=== PATIENT | female | born 1955 | race American Indian/Alaskan Native ===

== ENCOUNTER 2017-01-16 21:55 | Emergency (ER) | payer MEDICARE, OTHER ==
[2017-01-16 21:55] VITALS: BMI 27.4
[2017-01-16 22:11] VITALS: BP 143/82; PULSE 88; TEMP 98.1; O2SAT 98
[2017-01-16 22:39] LABS: RBC URINE 1 /hpf (0-3); URINE BACTERIA FEW (<OCC); URINE BILIRUBIN NEGATIVE (NEGATIVE); URINE BLOOD NEGATIVE (NEGATIVE); URINE COLOR Yellow (YELLOW); URINE GLUCOSE (UA) NORMAL (Normal); URINE KETONE NEGATIVE (NEGATIVE); URINE LEUKOCYTE ESTERASE 2+ Leu/uL (Negative); URINE PROTEIN NEGATIVE (NEGATIVE); URINE UROBILINOGEN NORMAL mg/dL (0.2-1.0); WBC URINE 26 /hpf (0-5)
--- NOTE | 2017-01-16 23:27 | C.PDOC ---
History Of Present Illness 61 y/o female, with history of chronic back pain, complaining of dysuria for the last 4 days associated with frequency, urgency, and feeling that she cannot hold her urine. Patient also complains of back pain, without numbness or weakness. Denies fever. She also complains of loose stool, denies abdominal pain , nausea, vomiting. There are no other complaints at this time. Time Seen by Provider: 01/16/17 22:46 Chief Complaint (Nursing): Female Genitourinary History Per: Patient History/Exam Limitations: no limitations Onset/Duration Of Symptoms: Days Current Symptoms Are (Timing): Still Present Severity: Moderate Quality Of Discomfort: "Pain" Associated Symptoms: Diarrhea, Back Pain, Urinary Symptoms. denies: Fever, Chills, Nausea, Vomiting, Loss Of Appetite, Chest Pain, Constipation Alleviating Factors: None Recent travel outside of the [place]: No Additional History Per: Patient Past Medical History Vital Signs: Last Vital Signs Temp 98.1 F 01/16/17 22:06 Pulse 88 01/16/17 22:06 Resp 20 01/16/17 23:34 BP 143/82 01/16/17 22:06 Pulse Ox 98 01/16/17 23:27 - Medical History PMH: Anxiety, Arthritis, Asthma, Back Problems, COPD, Dementia, Depression, Diabetes, Gastritis, GERD, Hepatitis, HTN, Hypercholesterolemia, Schizophrenia, Seizures, Chronic Pain (neck and back) Denies: Anemia, Chronic Kidney Disease Comment Only: HIV (unable to assess) Surgical History: Back Surgery, Cholecystectomy Denies: Pacemaker - [facility] Procedures COLONOSCOPY (04/22/12) ESOPHAGOGASTRODUODENOSCOPY [EGD] W/CLOSED BIOPSY (02/04/15) GROUP PSYCHOTHERAPY (11/08/16) INDIVIDUAL PSYCHOTHERAPY, COGNITIVE-BEHAVIORAL (11/08/16) INSERT INFUSION DEV IN R INT JUGULAR VEIN, PERC (11/11/16) INSERTION OF ENDOTRACHEAL AIRWAY INTO TRACHEA, VIA OPENING (11/11/16) RESPIRATORY VENTILATION, 24-96 CONSECUTIVE HOURS (11/11/16) Family History: States: Unknown Family Hx - Social History Hx Tobacco Use: Yes Hx Alcohol Use: No Hx Substance Use: Yes - Immunization History Hx Tetanus Toxoid Vaccination: No Hx Influenza Vaccination: Yes Hx Pneumococcal Vaccination: Yes Review Of Systems Except As Marked, All Systems Reviewed And Found Negative. Constitutional: Negative for: Fever Gastrointestinal: Positive for: Diarrhea Genitourinary: Positive for: Dysuria, Frequency Musculoskeletal: Positive for: Back Pain Physical Exam - Physical Exam Appears: Well, No Acute Distress Skin: Normal Color, Warm, Dry Eye(s): bilateral: Normal Inspection, PERRL, EOMI Nose: Normal Throat: Normal Neck: Normal Cardiovascular: Rhythm Regular Respiratory: Normal Breath Sounds Gastrointestinal/Abdominal: Normal Exam Rectal: Normal Exam, Rectal Tone (normal), No Heme Positive, Heme Negative Back: Normal Inspection Extremity: Normal ROM Extremity: Bilateral: Atraumatic Neurological/Psych: Oriented x3, Normal Speech, Normal Cognition, Normal Motor, Normal Sensation Gait: Steady ED Course And Treatment O2 Sat by Pulse Oximetry: 98 (RA) Pulse Ox Interpretation: Normal Progress Note: UA obtained and is positive. C&S ordered. Patient given Cipro in the department as well as a supply for home. Follow with PMD, or return with new /worsening complaints. Disposition - Disposition Disposition: HOME/ ROUTINE Disposition Time: 23:25 Condition: STABLE Additional Instructions: Take meds as directed Follow up with PMD Return to ER if worse Prescriptions: Ciprofloxacin [Cipro] 500 mg PO BID #14 tab Phenazopyridine HCl [Pyridium] 100 mg PO TID #6 tab Instructions: Urinary Tract Infection in Women (ED) - Clinical Impression Clinical Impression: UTI (urinary tract infection) - Scribe Statement The provider has reviewed the documentation as recorded by the Scribe Kavita Molina
[2017-01-16 23:34] VITALS: RESP 20
[2017-01-17] MEDS ORDERED: Morphine 4 MG/ML VIAL IV ONE (02:37)
== END 2017-01-16 23:34 | disposition home or self-care (01) ==
LOC: C.ER 21:55
DX: N39.0 Urinary tract infection, site not specified (principal); B96.89 Other specified bacterial agents as the cause of diseases classified elsewhere

== ENCOUNTER 2017-04-29 11:22 | Emergency (ER) | payer OTHER ==
[2017-04-29 11:23] VITALS: BMI 27.4
[2017-04-29 11:31] VITALS: O2SAT 99
--- NOTE | 2017-04-29 12:45 | C.PDOC ---
History Of Present Illness 61 yr old female with a history of chronic back pain and previous UTI, presents to the ER with complaints of lower abdominal pressure like pain for the past 5 days, radiating to the back. Patient also reports of urinary frequency and cloudy urine. Patient states the current back pain feels different then her usual. Patient reports of epigastric pain, burning in sensation and sometimes foul taste in the mouth. Patient states she forgot to take her omeprazole for the past few days. Patient denies fever, chills, chest pain, SOB, nausea, vomiting, weakness or numbness. Time Seen by Provider: 04/29/17 12:26 Chief Complaint (Nursing): Abdominal Pain History Per: Patient History/Exam Limitations: no limitations Onset/Duration Of Symptoms: Days (5) Current Symptoms Are (Timing): Still Present Location Of Pain/Discomfort: Epigastric, Suprapubic Radiation Of Pain To:: Back Quality Of Discomfort: Pressure, "Pain" Associated Symptoms: Urinary Symptoms Past Medical History Reviewed: Historical Data, Nursing Documentation, Vital Signs Vital Signs: Last Vital Signs Temp 97.8 F 04/29/17 14:19 Pulse 60 04/29/17 14:19 Resp 18 04/29/17 14:19 BP 154/88 H 04/29/17 14:19 Pulse Ox 99 04/29/17 14:19 - Medical History PMH: Anxiety, Arthritis, Asthma, Back Problems, COPD, Dementia, Depression, Diabetes, Gastritis, GERD, Hepatitis, HTN, Hypercholesterolemia, Schizophrenia, Seizures, Chronic Pain (neck and back) Comment Only: HIV (unable to assess) Surgical History: Back Surgery, Cholecystectomy - [facility] Procedures COLONOSCOPY (04/22/12) ESOPHAGOGASTRODUODENOSCOPY [EGD] W/CLOSED BIOPSY (02/04/15) GROUP PSYCHOTHERAPY (11/08/16) INDIVIDUAL PSYCHOTHERAPY, COGNITIVE-BEHAVIORAL (11/08/16) INSERT INFUSION DEV IN R INT JUGULAR VEIN, PERC (11/11/16) INSERTION OF ENDOTRACHEAL AIRWAY INTO TRACHEA, VIA OPENING (11/11/16) RESPIRATORY VENTILATION, 24-96 CONSECUTIVE HOURS (11/11/16) Family History: States: No Known Family Hx - Social History Hx Tobacco Use: Yes Hx Alcohol Use: No Hx Substance Use: Yes - Immunization History Hx Tetanus Toxoid Vaccination: No Hx Influenza Vaccination: Yes Hx Pneumococcal Vaccination: Yes Review Of Systems Except As Marked, All Systems Reviewed And Found Negative. Constitutional: Negative for: Fever, Chills Cardiovascular: Negative for: Chest Pain Respiratory: Negative for: Shortness of Breath Gastrointestinal: Positive for: Abdominal Pain (Lower abdominal, pressure like ) . Negative for: Nausea Genitourinary: Positive for: Frequency (Urinary ), Other ((+) Cloudy urine.). Negative for: Dysuria Musculoskeletal: Positive for: Back Pain (Radiating pain to the back ) Neurological: Negative for: Weakness, Numbness Physical Exam - Physical Exam Appears: Non-toxic, No Acute Distress Skin: Warm, Dry, No Rash Head: Atraumatic, Normacephalic Eye(s): bilateral: Normal Inspection Oral Mucosa: Moist Chest: Symmetrical, No Tenderness Cardiovascular: Rhythm Regular, No Murmur Respiratory: Normal Breath Sounds, No Rales, No Stridor, No Wheezing Gastrointestinal/Abdominal: Soft, Tenderness (Mild suprapubic ), No Guarding, No Rebound Back: Normal Inspection, No CVA Tenderness Extremity: Normal ROM, No Tenderness, No Deformity, No Swelling Neurological/Psych: Oriented x3, Normal Speech, Normal Motor, Normal Sensation Gait: Steady (with cane) ED Course And Treatment O2 Sat by Pulse Oximetry: 99 (RA) Pulse Ox Interpretation: Normal Medical Decision Making Medical Decision Making: Impression: low abd pain assoc urinary sx and back pain Prior records reviewed: patient last seen at [facility] 02/12/17 for chronic back pain and leg edema, neg doppler Plan: * Urinalysis * Tylenol PO Progress: UA shows nitrates and WBCs. Will treat for UTI. rx sent to pharmacy. Patient remained afebrile and in no acute distress. Patient feels comfortable going home and will be discharged. Patient given follow up instructions. Instructed to return to ER if symptoms worsen or new symptoms arise. Disposition - Disposition Referrals: Luis Manuel George MD [Non-Staff] - Disposition: HOME/ ROUTINE Disposition Time: 14:17 Condition: GOOD Additional Instructions: Your urine analysis shows infection. Your prescription for antibiotic was sent to [facility] Take Cipro twice daily for 5 days and be sure to finish taking all of antibiotic. Drink plenty of fluids. If urine culture was performed, call back for results in 2-3 days for results to confirm antibiotic is treating UTI well. Prescriptions: Ciprofloxacin [Cipro] 1 tab PO BID #10 tab Phenazopyridine [Pyridium] 100 mg PO Q8 #9 tab Instructions: Urinary Tract Infection in Women (DC) Forms: [facility] (French) - POA Present On Arrival: None - Clinical Impression Clinical Impression: UTI (urinary tract infection) - PA / MEDICAL RECORDS TECHNICIAN / Resident Statement MD/DO has reviewed & agrees with the documentation as recorded. - Scribe Statement The provider has reviewed the documentation as recorded by the Scribe Kalpana Moore All medical record entries made by the Gisellibmaria del carmen were at my direction and personally dictated by me. I have reviewed the chart and agree that the record accurately reflects my personal performance of the history, physical exam, medical decision making, and the department course for this patient. I have also personally directed, reviewed, and agree with the discharge instructions and disposition.
[2017-04-29 13:26] LABS: RBC URINE 1 /hpf (0-3); URINE BACTERIA OCC (<OCC); URINE BILIRUBIN NEGATIVE (NEGATIVE); URINE BLOOD NEGATIVE (NEGATIVE); URINE COLOR Yellow (YELLOW); URINE GLUCOSE (UA) NORMAL (Normal); URINE KETONE NEGATIVE (NEGATIVE); URINE LEUKOCYTE ESTERASE 1+ Leu/uL (Negative); URINE PROTEIN NEGATIVE (NEGATIVE); URINE UROBILINOGEN NORMAL mg/dL (0.2-1.0); WBC URINE 11 /hpf (0-5)
[2017-04-29 14:20] VITALS: BP 154/88; PULSE 60; RESP 18; TEMP 97.8
== END 2017-04-29 14:20 | disposition home or self-care (01) ==
LOC: C.ER 11:22
DX: N39.0 Urinary tract infection, site not specified (principal); B96.20 Unspecified Escherichia coli [E. coli] as the cause of diseases classified elsewhere

== ENCOUNTER 2017-06-14 16:30 | Emergency (ER) | payer OTHER ==
[2017-06-14 16:30] VITALS: BMI 27.4
[2017-06-14] MEDS ORDERED: Sodium Chloride 0.9% 1,000 ML IV ONE (16:59)
[2017-06-14] MEDS ORDERED: Sodium Chloride 0.9% 1,000 ML ONE (17:21)
--- NOTE | 2017-06-14 17:31 | C.PDOC ---
History Of Present Illness <LewisPedroMayo Carlton - Last Filed: 06/14/17 19:09> <Darshan Delgado - Last Filed: 06/14/17 21:23> 61 y/o female presents to emergency department with complaints of right flank pain radiating to right abdomen for 2 days with associated nausea and dysuria. Patient denies fever, chills, diarrhea, back pain or any other complaints at this time. (Gael Saucedo) History Per: Patient History/Exam Limitations: no limitations Onset/Duration Of Symptoms: Days Current Symptoms Are (Timing): Still Present Quality Of Discomfort: "Pain" <Pedro Saucedopson Carlton - Last Filed: 06/14/17 19:09> <Darshan Delgado - Last Filed: 06/14/17 21:23> Time Seen by Provider: 06/14/17 16:55 Chief Complaint (Nursing): Back Pain Past Medical History Reviewed: Historical Data, Nursing Documentation, Vital Signs - Medical History PMH: Anxiety, Arthritis, Asthma, Back Problems, COPD, Dementia, Depression, Diabetes, Gastritis, GERD, Hepatitis, HTN, Hypercholesterolemia, Schizophrenia, Seizures, Chronic Pain (neck and back) Comment Only: HIV (unable to assess) Surgical History: Back Surgery, Cholecystectomy Denies: Pacemaker Family History: States: No Known Family Hx - Social History Hx Tobacco Use: Yes Hx Alcohol Use: No Hx Substance Use: No - Immunization History Hx Tetanus Toxoid Vaccination: No Hx Influenza Vaccination: No Hx Pneumococcal Vaccination: Yes <LewisGael Carlton - Last Filed: 06/14/17 19:09> Vital Signs: Last Vital Signs Temp 99 F 06/14/17 16:38 Pulse 78 06/14/17 16:38 Resp 15 06/14/17 16:38 BP 139/95 H 06/14/17 16:38 Pulse Ox 99 06/14/17 19:09 - [facility] Procedures COLONOSCOPY (04/22/12) ESOPHAGOGASTRODUODENOSCOPY [EGD] W/CLOSED BIOPSY (02/04/15) GROUP PSYCHOTHERAPY (11/08/16) INDIVIDUAL PSYCHOTHERAPY, COGNITIVE-BEHAVIORAL (11/08/16) INSERT INFUSION DEV IN R INT JUGULAR VEIN, PERC (11/11/16) INSERTION OF ENDOTRACHEAL AIRWAY INTO TRACHEA, VIA OPENING (11/11/16) RESPIRATORY VENTILATION, 24-96 CONSECUTIVE HOURS (11/11/16) Review Of Systems Except As Marked, All Systems Reviewed And Found Negative. Gastrointestinal: Positive for: Abdominal Pain, Other (Flank Pain) Genitourinary: Positive for: Dysuria <Gael Saucedo - Last Filed: 06/14/17 19:09> Physical Exam - Physical Exam Appears: Non-toxic, No Acute Distress Skin: Normal Color, Warm, Dry, No Rash Head: Atraumatic, Normacephalic Oral Mucosa: Moist Neck: Normal ROM, Supple Chest: Symmetrical Cardiovascular: Rhythm Regular Respiratory: Normal Breath Sounds, No Rales, No Rhonchi, No Wheezing Gastrointestinal/Abdominal: Soft, Tenderness (RLQ), No Guarding, No Rebound Back: CVA Tenderness (Right) Extremity: Capillary Refill (<2 seconds), No Deformity, Other (Bandage to right foot, Patient states it was placed by physician and does not want it to be touched) Neurological/Psych: Oriented x3, Normal Motor, Normal Sensation <Gael Saucedo - Last Filed: 06/14/17 19:09> ED Course And Treatment O2 Sat by Pulse Oximetry: 99 (RA) Pulse Ox Interpretation: Normal <Gael Saucedo - Last Filed: 06/14/17 19:09> Medical Decision Making <Gael Saucedo - Last Filed: 06/14/17 19:09> <Darshan Delgado - Last Filed: 06/14/17 21:23> Medical Decision Making: Plan: CT scan abd/pelvic, Blood work, UA, Toradol, Zofran, Ppecid, IV fluids Assessment: Abdominal pain/ Flank pain (Gael Saucedo) Signed out to me at change of shift pending CBC and UA. Patient in ED in no acute distress. CBC returned WNL, no leukocytosis. UA shows 1+blood, negative nitrate, trace leuk jeff, occ bacteria, and 3 WBC. Patient does report dysuria and states feels like previous UTI which have responded well to Cipro. CT shows no acute pathology but does show significant stool without impaction or obstruction. Stool does seem concentrated in R sided abdomen. Patient notes she has not had BM for 4 days. I counseled the patient on diet and will prescribe antibiotic for UTI and colace/miralax. (Darshan Delgado) Disposition <Gael Saucedo - Last Filed: 06/14/17 19:09> - Disposition Disposition Time: 21:22 <Darshan Delgado - Last Filed: 06/14/17 21:23> - Disposition Disposition: HOME/ ROUTINE Condition: STABLE Prescriptions: Ciprofloxacin [Cipro] 500 mg PO BID #10 tab Docusate [Colace] 100 mg PO BID #30 cap Polyethylene Glycol 3350 [Miralax] 17 gm PO DAILY #238 gm Instructions: Constipation (ED), Urinary Tract Infection in Women (ED) Forms: [employer] (Faroese) - Clinical Impression Clinical Impression: UTI (urinary tract infection), Constipation - Scribe Statement The provider has reviewed the documentation as recorded by the Scribe <Gael Saucedo - Last Filed: 06/14/17 19:09> <Darshan Delgado - Last Filed: 06/14/17 21:23> - Scribe Statement Donato Gooden All medical record entries made by the Scribe were at my direction and personally dictated by me. I have reviewed the chart and agree that the record accurately reflects my personal performance of the history, physical exam, medical decision making, and the department course for this patient. I have also personally directed, reviewed, and agree with the discharge instructions and disposition. (Gael Saucedo) Physician Patient Turnover Patient Signed Over To: Darshan Delgado Handoff Comments: pending labs, reevaluation and disposition <Gael Saucedo - Last Filed: 06/14/17 19:09>
[2017-06-14 17:47] LABS: URINE BACTERIA OCC (<OCC); URINE BILIRUBIN NEGATIVE (NEGATIVE); URINE BLOOD 1+ (NEGATIVE); URINE COLOR Yellow (YELLOW); URINE GLUCOSE (UA) NORMAL (Normal); URINE KETONE NEGATIVE (NEGATIVE); URINE LEUKOCYTE ESTERASE TRACE Leu/uL (Negative); URINE PROTEIN NEGATIVE (NEGATIVE); URINE UROBILINOGEN NORMAL mg/dL (0.2-1.0); WBC URINE 3 /hpf (0-5)
[2017-06-14 17:48] LABS: RBC URINE 2 /hpf (0-3)
[2017-06-14 18:08] LABS: CHLORIDE 96 mmol/L (98-107)
[2017-06-14 18:09] LABS: POTASSIUM 3.2 mmol/L (3.6-5.2); SODIUM 135 mmol/L (132-148)
[2017-06-14 18:11] LABS: ALKALINE PHOSPHATASE 80 U/L (38-126); ALT/SGPT 80 U/L (9-52); AST/SGOT 103 U/L (14-36); BILIRUBIN,TOTAL 0.8 mg/dL (0.2-1.3); BLOOD UREA NITROGEN 11 mg/dL (7-17); CARBON DIOXIDE 28 mmol/L (22-30); GFR AFRICAN-AMERICAN > 60; GLUCOSE,RANDOM 88 mg/dL (65-105); TOTAL PROTEIN 7.7 g/dL (6.3-8.3)
[2017-06-14 18:12] LABS: CALCIUM 9.3 mg/dl (8.6-10.4)
[2017-06-14 18:15] LABS: HEMATOCRIT 36.6 % (34.0-47.0); MEAN CORPUSCULAR HEMOGLOBIN 28.1 pg (27.0-31.0); MEAN CORPUSCULAR HGB CONC 33.5 g/dL (33.0-37.0); MEAN PLATELET VOLUME 9.7 fL (7.2-11.7)
[2017-06-14 18:47] LABS: BASO % 1.6 % (0.0-2.0); EOS % 3.1 % (0.0-4.0)
[2017-06-14 18:48] LABS: BASO # 0.1 K/uL (0.0-0.2); EOS # 0.3 K/uL (0.0-0.7); LYMPH # 5.2 K/uL (1.0-4.3); MONO # 0.5 K/uL (0.0-0.8); NRBC % 0.1 % (0.0-2.0)
--- NOTE | 2017-06-14 20:03 | CT ---
PROCEDURE: CT Abdomen and Pelvis without intravenous contrast HISTORY: Abdominal and back pain COMPARISON: 02/11/2016 CT abdomen and pelvis TECHNIQUE: No Unenhanced study. Neither oral nor intravenous contrast administered. Radiation dose: Total exam DLP = 534.52 mGy-cm. This CT exam was performed using one or more of the following dose reduction techniques: Automated exposure control, adjustment of the mA and/or kV according to patient size, and/or use of iterative reconstruction technique. FINDINGS: LOWER THORAX: Unremarkable. LIVER: Hepatic steatosis. No focal masses. No intrahepatic bile duct dilatation or perihepatic ascites. GALLBLADDER AND BILE DUCTS: Status post cholecystectomy. No abnormality is seen in the gallbladder fossa. PANCREAS: Unremarkable. No gross lesion or ductal dilatation. SPLEEN: Diminutive spleen or splenule without focal abnormality ADRENALS: Unremarkable. No mass. KIDNEYS AND URETERS: Unremarkable. No hydronephrosis. No solid mass. VASCULATURE: Unremarkable. No aortic aneurysm. BOWEL: Constipation without fecal impaction or obstruction. APPENDIX: Unremarkable. Normal appendix. PERITONEUM: Unremarkable. No free fluid. No free air. LYMPH NODES: Unremarkable. No enlarged lymph nodes. BLADDER: Unremarkable. REPRODUCTIVE: Prior hysterectomy BONES: No acute fracture. OTHER FINDINGS: None. IMPRESSION: No significant or acute findings to account for/ related to the clinical presentation. Additional benign and/or incidental findings described above. No significant interval change compared to the prior examination(s).
[2017-06-14 21:31] VITALS: BP 120/90; PULSE 84; RESP 14; TEMP 98.5; O2SAT 98
== END 2017-06-14 21:31 | disposition home or self-care (01) ==
LOC: C.ER 16:30
DX: N39.0 Urinary tract infection, site not specified (principal); K59.00 Constipation, unspecified
CPT/HCPCS: 74176; 80053; 81001; 83690; 85025; 87086; 87181; 96374; 96375; 99285; J1885; J2405; J7040

== ENCOUNTER 2017-08-19 02:21 | Emergency (ER) | payer MEDICARE, OTHER ==
[2017-08-19 02:21] VITALS: BMI 27.4
[2017-08-19] MEDS ORDERED: DiphenhydrAMINE 12.5 mg/5 ml LIQ UD (5 ml) PO STA (02:55)
[2017-08-19] MEDS ORDERED: DiphenhydrAMINE 12.5 mg/5 ml LIQ UD (5 ml) ONE (02:59)
--- NOTE | 2017-08-19 03:15 | C.PDOC ---
History Of Present Illness 62 year old female presents to the ER with a complaint of nasal congestion for the past few days, associated with a recurring nose bleed to the right nare. Patient states the bleeding resolved but reports she feels pressure to her right facial area and is unable to breathe through the right nostril. Denies cough, sore throat, or fever. Time Seen by Provider: 08/19/17 02:43 Chief Complaint (Nursing): ENT Problem History Per: Patient History/Exam Limitations: None Onset/Duration Of Symptoms: Days Current Symptoms Are (Timing): Still Present Quality (Mouth/Throat): denies: Tenderness Anticoagulant/Antiplatlet Use?: No Past Medical History Reviewed: Historical Data, Nursing Documentation, Vital Signs Vital Signs: Last Vital Signs Temp 98.1 F 08/19/17 02:35 Pulse 75 08/19/17 04:49 Resp 18 08/19/17 04:49 BP 152/92 H 08/19/17 04:49 Pulse Ox 96 08/19/17 05:44 - Medical History PMH: Anxiety, Arthritis, Asthma, Back Problems, COPD, Dementia, Depression, Diabetes, Gastritis, GERD, Hepatitis, HTN, Hypercholesterolemia, Schizophrenia, Seizures, Chronic Pain (neck and back) Comment Only: HIV (unable to assess) Surgical History: Back Surgery, Cholecystectomy - [facility] Procedures COLONOSCOPY (04/22/12) ESOPHAGOGASTRODUODENOSCOPY [EGD] W/CLOSED BIOPSY (02/04/15) GROUP PSYCHOTHERAPY (11/08/16) INDIVIDUAL PSYCHOTHERAPY, COGNITIVE-BEHAVIORAL (11/08/16) INSERT INFUSION DEV IN R INT JUGULAR VEIN, PERC (11/11/16) INSERTION OF ENDOTRACHEAL AIRWAY INTO TRACHEA, VIA OPENING (11/11/16) RESPIRATORY VENTILATION, 24-96 CONSECUTIVE HOURS (11/11/16) Family History: States: Unknown Family Hx - Social History Hx Tobacco Use: Yes Hx Alcohol Use: No Hx Substance Use: No - Immunization History Hx Tetanus Toxoid Vaccination: No Hx Influenza Vaccination: No Hx Pneumococcal Vaccination: Yes Review Of Systems Constitutional: Negative for: Fever, Chills ENT: Positive for: Nose Congestion. Negative for: Throat Pain Respiratory: Negative for: Cough Musculoskeletal: Positive for: Other (Facial pressure) Physical Exam - Physical Exam Appears: Non-toxic, No Acute Distress Skin: Normal Color, Warm, Dry Head: Atraumatic, Normacephalic, Tenderness (Minimal frontal sinus), No Swelling (Facial) Eye(s): bilateral: Normal Inspection Ear(s): Bilateral: Normal Nose: Normal, No Septal Hematoma, Other (Moderate nasal congestion. Dried blood to the right nostril.) Oral Mucosa: Moist Throat: Normal, No Erythema Neck: Normal, Supple Chest: Symmetrical, No Tenderness Cardiovascular: Rhythm Regular Respiratory: Normal Breath Sounds, No Rales, No Rhonchi, No Wheezing Neurological/Psych: Oriented x3, Normal Speech ED Course And Treatment O2 Sat by Pulse Oximetry: 96 (Room air) Pulse Ox Interpretation: Normal Progress Note: Benadryl PO given and saline drops applied to nose. On reevaluation, patient is resting comfortably in bed with no recurrent epistaxis while in the ER, she reports improvement of symptoms. Patient requests to rest a while longer before going home. Reevaluation Time: 06:17 Reassessment Condition: Improved (Pt appears well, VSs, in NAD. Pt reports breathing better from nasal cavity and will follow up with PMD. Pt will take her BP meds at home) Disposition Counseled Patient/Family Regarding: Diagnosis - Disposition Disposition: HOME/ ROUTINE Disposition Time: 03:14 Condition: STABLE Additional Instructions: Use afrin nasal spray Take meds directed Use a humidifier at home or reduce heat if possible Return to ER if worse Forms: [facility] (Portuguese) - Clinical Impression Clinical Impression: Epistaxis, Allergic rhinitis - PA / LEAD ATHLETE / Resident Statement MD/DO has reviewed & agrees with the documentation as recorded. - Scribe Statement The provider has reviewed the documentation as recorded by the Scribmaria del carmen Munoz All medical record entries made by the Gisellibmaria del carmen were at my direction and personally dictated by me. I have reviewed the chart and agree that the record accurately reflects my personal performance of the history, physical exam, medical decision making, and the department course for this patient. I have also personally directed, reviewed, and agree with the discharge instructions and disposition.
[2017-08-19 04:50] VITALS: RESP 18
[2017-08-19 07:11] VITALS: BP 102/74; PULSE 74; TEMP 96.8; O2SAT 98
== END 2017-08-19 07:05 | disposition home or self-care (01) ==
LOC: C.ER 02:21
DX: J30.9 Allergic rhinitis, unspecified (principal); R04.0 Epistaxis; F17.210 Nicotine dependence, cigarettes, uncomplicated; E11.9 Type 2 diabetes mellitus without complications

== ENCOUNTER 2017-08-26 09:23 | Emergency (ER) | payer MEDICARE, OTHER ==
[2017-08-26 09:36] VITALS: BMI 27.8
[2017-08-26] MEDS ORDERED: Sodium Chloride 0.9% 1,000 ML IV ONE (10:23)
[2017-08-26] MEDS ORDERED: Aspirin 325 mg EC Tablets PO STA (10:24)
--- NOTE | 2017-08-26 10:26 | C.PDOC ---
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 Patient notes associated with nasal congestion and chills. Patient took Tylenol minimal relief. She has been evaluated multiple times for similar abdominal pain complaints. Last evaluation was last month. Pt is requests detox. Patient denies nausea, vomiting, diarrhea, weakness, numbness, shortness of breath, palpitations, or other complaints at this time. PMD: Dr. Stoll Time Seen by Provider: 08/26/17 10:00 Chief Complaint (Nursing): Flu-like Symptoms History Per: Patient History/Exam Limitations: no limitations Onset/Duration Of Symptoms: Days (1 week) Current Symptoms Are (Timing): Still Present Location Of Pain: Other (abdominal pain ) Sick Contacts (Context): None Associated Symptoms: Chills, Cough, Nasal Congestion. denies: Fever, Nausea, Vomiting, Diarrhea Recent travel outside of the [place]: No Additional History Per: Prior Records Past Medical History Reviewed: Historical Data, Nursing Documentation, Vital Signs Vital Signs: Last Vital Signs Temp 98.1 F 08/26/17 13:15 Pulse 76 08/26/17 13:15 Resp 18 08/26/17 13:15 BP 130/94 H 08/26/17 13:15 Pulse Ox 96 08/26/17 14:47 - Medical History PMH: Anxiety, Arthritis, Asthma, Back Problems, COPD, Dementia, Depression, Diabetes, Gastritis, GERD, Hepatitis, HTN, Hypercholesterolemia, Schizophrenia, Seizures, Chronic Pain (neck and back) Comment Only: HIV (unable to assess) Surgical History: Back Surgery, Cholecystectomy - [facility] Procedures COLONOSCOPY (04/22/12) ESOPHAGOGASTRODUODENOSCOPY [EGD] W/CLOSED BIOPSY (02/04/15) GROUP PSYCHOTHERAPY (11/08/16) INDIVIDUAL PSYCHOTHERAPY, COGNITIVE-BEHAVIORAL (11/08/16) INSERT INFUSION DEV IN R INT JUGULAR VEIN, PERC (11/11/16) INSERTION OF ENDOTRACHEAL AIRWAY INTO TRACHEA, VIA OPENING (11/11/16) RESPIRATORY VENTILATION, 24-96 CONSECUTIVE HOURS (11/11/16) Family History: States: Unknown Family Hx - Social History Hx Tobacco Use: Yes Hx Alcohol Use: No Hx Substance Use: No - Immunization History Hx Tetanus Toxoid Vaccination: No Hx Influenza Vaccination: No Hx Pneumococcal Vaccination: Yes Review Of Systems Constitutional: Positive for: Chills, Sweats. Negative for: Fever ENT: Positive for: Nose Congestion Cardiovascular: Positive for: Chest Pain. Negative for: Palpitations Respiratory: Positive for: Cough. Negative for: Shortness of Breath Gastrointestinal: Positive for: Abdominal Pain. Negative for: Nausea, Vomiting , Diarrhea Neurological: Negative for: Weakness, Numbness Physical Exam - Physical Exam Appears: Non-toxic, No Acute Distress Skin: Warm, Dry, No Rash Head: Atraumatic, Normacephalic, No Tenderness Eye(s): bilateral: Normal Inspection, PERRL, EOMI Nose: Normal Oral Mucosa: Moist Neck: Normal ROM, Supple Chest: Symmetrical, No Deformity Cardiovascular: Rhythm Regular Respiratory: No Rales, No Rhonchi, No Wheezing, Other (clear to auscultation bilaterally) Gastrointestinal/Abdominal: Soft, Tenderness ((+) epigastric tenderness), No Distention, No Guarding, No Rebound Neurological/Psych: Oriented x3 ED Course And Treatment - Laboratory Results Result Diagrams: 08/26/17 11:00 ECG: Interpreted By Me, Viewed By Me ECG Rhythm: Sinus Rhythm Interpretation Of ECG: No specific changes. Rate From EC O2 Sat by Pulse Oximetry: 96 (RA) Pulse Ox Interpretation: Normal Progress Note: Abdominal obstructive series, EKG, blood work, and labs were ordered. Patient was given Aspirin, Pepcid, and IV fluids. Pt requests to leave prior to labs and re-evaluation. Notes "my affairs arent in order." States she will return for detox. The patient declines admission to the hospital and wishes to leave the Emergency Department. This action is against my medical advice to the patient and the decision was made with informed refusal. The patient was told that admission is necessary and a full explanation of the rationale was given. The risks of leaving were explained to the patient and include, but are not limited to, worsening of known or currently unknown conditions, permanent disability and from undiagnosed or untreated conditions . The patient has the capacity to make this informed decision and understands the clinical situation and my explanation of the risks of leaving. The patient voluntarily accepts these risks and a signed AMA form documenting our conversation was obtained. The patient was given the opportunity to ask questions and reconsider. The patient was encouraged to return to the Emergency Department at any time for further care Disposition - Disposition Disposition: AGAINST MEDICAL ADVICE Disposition Time: 13:01 Condition: STABLE Instructions: Opioid Dependence (ED) Forms: [facility] (Upper Sorbian), (AMA) Informed Refusal - Clinical Impression Clinical Impression: Abdominal pain, Opioid dependence - PA / ACID CONDITIONER / Resident Statement MD/DO has reviewed & agrees with the documentation as recorded. - Scribe Statement The provider has reviewed the documentation as recorded by the Scribe Megan Stinson All medical record entries made by the Gisellibmaria del carmen were at my direction and personally dictated by me. I have reviewed the chart and agree that the record accurately reflects my personal performance of the history, physical exam, medical decision making, and the department course for this patient. I have also personally directed, reviewed, and agree with the discharge instructions and disposition.
[2017-08-26] MEDS ORDERED: Aspirin 325 mg EC Tablets PO ONE (10:41)
[2017-08-26] MEDS ORDERED: Sodium Chloride 0.9% 1,000 ML ONE (10:41)
[2017-08-26 11:09] LABS: URINE BILIRUBIN NEGATIVE (NEGATIVE); URINE BLOOD NEGATIVE (NEGATIVE); URINE COLOR Straw (YELLOW); URINE GLUCOSE (UA) NORMAL (Normal); URINE KETONE NEGATIVE (NEGATIVE); URINE LEUKOCYTE ESTERASE NEG Leu/uL (Negative); URINE PROTEIN NEGATIVE (NEGATIVE); URINE UROBILINOGEN NORMAL mg/dL (0.2-1.0)
[2017-08-26 11:22] LABS: ALKALINE PHOSPHATASE 63 U/L (38-126); ALT/SGPT 52 U/L (9-52); AST/SGOT 50 U/L (14-36); BILIRUBIN,TOTAL 0.7 mg/dL (0.2-1.3); BLOOD UREA NITROGEN 8 mg/dL (7-17); CALCIUM 8.8 mg/dl (8.6-10.4); CARBON DIOXIDE 33 mmol/L (22-30); CHLORIDE 99 mmol/L (98-107); GFR AFRICAN-AMERICAN > 60; GLUCOSE,RANDOM 96 mg/dL (65-105); POTASSIUM 3.4 mmol/L (3.6-5.2); SODIUM 137 mmol/L (132-148); TOTAL PROTEIN 8.5 g/dL (6.3-8.3)
[2017-08-26 11:48] LABS: ALB/GLOB RATIO 0.8 (1.0-2.1)
--- NOTE | 2017-08-26 11:55 | RAD ---
Abdomen four views History: Abdominal pain. Comparison: None available. Findings: Diffuse increased interstitial lung markings. Mild biapical pleural thickening. Bibasilar breast and nipple shadows. Nodular density at the right lung base near the costophrenic angle may represent confluence of shadows of ribs and vessels. Surgical clips in the upper abdomen. Moderate fecal retention in the colon. Few mildly distended loops of small bowel in the mid abdomen. Degenerative changes in the lower lumbar spine. Impression: Nonspecific bowel gas pattern with a few distended loops of small bowel in the upper mid abdomen. No evidence of gross obstruction.
[2017-08-26] MEDS ORDERED: Alum-Mag Hydrox-Simethicone Susp (30 mL) PO STA (12:38)
[2017-08-26 13:16] VITALS: BP 130/94; PULSE 76; RESP 18; TEMP 98.1
[2017-08-26 14:59] VITALS: O2SAT 96
--- NOTE | 2017-08-27 18:29 | CARD ---
APPROVED REPORT EKG Measurement Heart [id number] [place] 160P70 [id number] <Conclusion> Sinus rhythm with premature ventricular complexes or fusion complexes Septal infarct, age undetermined Abnormal ECG
== END 2017-08-26 13:15 | disposition left against medical advice (07) ==
LOC: C.ER 09:23
DX: F11.20 Opioid dependence, uncomplicated (principal); R10.13 Epigastric pain; E11.9 Type 2 diabetes mellitus without complications; E78.00 Pure hypercholesterolemia, unspecified; I10 Essential (primary) hypertension; J44.9 Chronic obstructive pulmonary disease, unspecified; Z87.891 Personal history of nicotine dependence

== ENCOUNTER 2017-08-26 20:19 | Emergency (ER) | payer MEDICARE, OTHER ==
[2017-08-26 20:19] VITALS: BMI 27.8
[2017-08-26 22:55] LABS: URINE BILIRUBIN NEGATIVE (NEGATIVE); URINE BLOOD NEGATIVE (NEGATIVE); URINE COLOR Colorless (YELLOW); URINE GLUCOSE (UA) NORMAL (Normal); URINE KETONE NEGATIVE (NEGATIVE); URINE LEUKOCYTE ESTERASE NEG Leu/uL (Negative); URINE PROTEIN NEGATIVE (NEGATIVE); URINE UROBILINOGEN NORMAL mg/dL (0.2-1.0); WBC URINE 1 /hpf (0-5)
[2017-08-26 23:35] LABS: HEMATOCRIT 35.1 % (34.0-47.0); MEAN CELL VOLUME 85.9 fL (81.0-99.0); MEAN CORPUSCULAR HEMOGLOBIN 29.1 pg (27.0-31.0); MEAN CORPUSCULAR HGB CONC 33.9 g/dL (33.0-37.0); MEAN PLATELET VOLUME 8.8 fL (7.2-11.7); PLATELET COUNT 225 K/uL (130-400); RED CELL DISTRIBUTION WIDTH 16.5 % (11.5-14.5); WHITE BLOOD COUNT 9.9 K/uL (4.8-10.8)
[2017-08-26 23:39] LABS: ALB/GLOB RATIO 0.9 (1.0-2.1); ALCOHOL SERUM < 10 mg/dl (0-10); ALKALINE PHOSPHATASE 66 U/L (38-126); ALT/SGPT 57 U/L (9-52); AST/SGOT 45 U/L (14-36); BILIRUBIN,TOTAL 0.5 mg/dL (0.2-1.3); BLOOD UREA NITROGEN 10 mg/dL (7-17); CARBON DIOXIDE 33 mmol/L (22-30); CHLORIDE 100 mmol/L (98-107); GFR AFRICAN-AMERICAN > 60; GLUCOSE,RANDOM 101 mg/dL (65-105); POTASSIUM 3.4 mmol/L (3.6-5.2); SODIUM 137 mmol/L (132-148); TOTAL PROTEIN 8.4 g/dL (6.3-8.3)
[2017-08-27 00:19] LABS: EOSINOPHIL 1 % (0-4); NEUTROPHIL 39 % (50-75); REACTIVE LYMPHOCYTES 4 % (0-0); TOTAL CELLS COUNTED 100
--- NOTE | 2017-08-27 00:27 | C.PDOC ---
History Of Present Illness Patient is a 62 y/o female who presents to the ED for a prescreen for heroin detox. Patient was recently seen in ED, but no detox beds were available. No other physical complaints at this time. Time Seen by Provider: 08/26/17 22:15 Chief Complaint (Nursing): Psychiatric Evaluation History Per: Patient History/Exam Limitations: no limitations Onset/Duration Of Symptoms: Days Modifying Factor(s): Other (heroin) Recent travel outside of the [place]: No Past Medical History Reviewed: Historical Data, Nursing Documentation, Vital Signs Vital Signs: Last Vital Signs Temp 98.3 F 08/27/17 00:50 Pulse 100 H 08/27/17 00:50 Resp 22 08/27/17 00:50 BP 176/96 H 08/27/17 00:50 Pulse Ox 98 08/27/17 00:50 - Medical History PMH: Anxiety, Arthritis, Asthma, Back Problems, COPD, Dementia, Depression, Diabetes, Gastritis, GERD, Hepatitis, HTN, Hypercholesterolemia, Schizophrenia, Seizures, Chronic Pain (neck and back) Denies: Anemia, Chronic Kidney Disease Comment Only: HIV (unable to assess) Surgical History: Appendectomy, Back Surgery, Cholecystectomy Denies: Pacemaker - [facility] Procedures COLONOSCOPY (04/22/12) ESOPHAGOGASTRODUODENOSCOPY [EGD] W/CLOSED BIOPSY (02/04/15) GROUP PSYCHOTHERAPY (11/08/16) INDIVIDUAL PSYCHOTHERAPY, COGNITIVE-BEHAVIORAL (11/08/16) INSERT INFUSION DEV IN R INT JUGULAR VEIN, PERC (11/11/16) INSERTION OF ENDOTRACHEAL AIRWAY INTO TRACHEA, VIA OPENING (11/11/16) RESPIRATORY VENTILATION, 24-96 CONSECUTIVE HOURS (11/11/16) Family History: States: Unknown Family Hx - Social History Hx Tobacco Use: Yes Hx Alcohol Use: No Hx Substance Use: Yes - Immunization History Hx Tetanus Toxoid Vaccination: No Hx Influenza Vaccination: No Hx Pneumococcal Vaccination: Yes Review Of Systems Constitutional: Negative for: Fever, Chills Psych: Positive for: Other (prescreen for heroin detox) Physical Exam - Physical Exam Appears: Well, Non-toxic, No Acute Distress Skin: Normal Color, Warm, Dry Head: Atraumatic, Normacephalic Oral Mucosa: Moist Chest: Symmetrical Cardiovascular: Rhythm Regular, No Murmur Respiratory: Normal Breath Sounds, No Rales, No Rhonchi, No Wheezing Gastrointestinal/Abdominal: Soft, No Tenderness Neurological/Psych: Oriented x3, Normal Speech, Normal Cognition ED Course And Treatment - Laboratory Results Result Diagrams: 08/26/17 23:17 08/26/17 23:17 Lab Interpretation: Normal (ua neg, tox + opiates) O2 Sat by Pulse Oximetry: 97 (room air) Pulse Ox Interpretation: Normal Progress Note: multiple re-visits @ bedside with pt and Crisis/Detox as pt is ambiguous about inpatient stay. Her logic non-sensical. Even after explained she would not be given narcotic substitute medications. Pt demanding inpatient eval for her chronic back pains, but normal exam. Eventually pt d/c as unwilling to stay for inpatient detox. ? underlying intox vs dementia. Reevaluation Time: 00:56 Disposition Doctor Will See Patient In The: Office Counseled Patient/Family Regarding: Studies Performed, Diagnosis - Disposition Disposition: HOME/ ROUTINE Disposition Time: 00:58 Condition: GOOD Forms: [facility] (German) - Clinical Impression Clinical Impression: Opiate addiction, Chronic back pain - Scribe Statement The provider has reviewed the documentation as recorded by the Scribmaria del carmen Sexton All medical record entries made by the Scribe were at my direction and personally dictated by me. I have reviewed the chart and agree that the record accurately reflects my personal performance of the history, physical exam, medical decision making, and the department course for this patient. I have also personally directed, reviewed, and agree with the discharge instructions and disposition.
[2017-08-27] MEDS ORDERED: Potassium Chloride 10 mEq ER Tab PO ONE (00:37)
[2017-08-27] MEDS ORDERED: Potassium Chloride 10 mEq ER Tab PO STA (00:45)
[2017-08-27 01:41] VITALS: O2SAT 95
[2017-08-27 03:30] VITALS: BP 131/67; PULSE 70; RESP 20; TEMP 98.8
--- NOTE | 2017-08-28 23:40 | CARD ---
APPROVED REPORT EKG Measurement Heart [id number] CO 160P70 [id number] <Conclusion> Normal sinus rhythm Septal infarct, age undetermined Abnormal ECG
== END 2017-08-27 03:58 | disposition home or self-care (01) ==
LOC: C.ER 20:19
DX: F11.20 Opioid dependence, uncomplicated (principal); G89.29 Other chronic pain; M54.9 Dorsalgia, unspecified
CPT/HCPCS: 80053; 81001; 85025; 93005; 99284; G0480

== ENCOUNTER 2017-08-28 09:51 | Inpatient (IN) | payer MEDICARE, OTHER ==
[2017-08-28 09:51] VITALS: BMI 27.8
[2017-08-28 11:03] LABS: URINE BILIRUBIN NEGATIVE (NEGATIVE); URINE BLOOD NEGATIVE (NEGATIVE); URINE COLOR Yellow (YELLOW); URINE GLUCOSE (UA) NORMAL (Normal); URINE KETONE NEGATIVE (NEGATIVE); URINE LEUKOCYTE ESTERASE NEG Leu/uL (Negative); URINE PROTEIN NEGATIVE (NEGATIVE); URINE UROBILINOGEN NORMAL mg/dL (0.2-1.0)
[2017-08-28 12:42] LABS: BASO # 0.1 K/uL (0.0-0.2); BASO % 1.1 % (0.0-2.0); EOS # 0.1 K/uL (0.0-0.7); EOS % 1.5 % (0.0-4.0); HEMATOCRIT 35.2 % (34.0-47.0); LYMPH # 4.6 K/uL (1.0-4.3); MEAN CELL VOLUME 86.2 fL (81.0-99.0); MEAN CORPUSCULAR HEMOGLOBIN 28.7 pg (27.0-31.0); MEAN CORPUSCULAR HGB CONC 33.3 g/dL (33.0-37.0); MEAN PLATELET VOLUME 9.5 fL (7.2-11.7); MONO # 0.4 K/uL (0.0-0.8); MONO % 4.9 % (0.0-10.0); NRBC % 0.1 % (0.0-2.0); RED CELL DISTRIBUTION WIDTH 16.4 % (11.5-14.5); WHITE BLOOD COUNT 8.7 K/uL (4.8-10.8)
--- NOTE | 2017-08-28 12:44 | C.PDOC ---
History Of Present Illness 62 year old female with PMHx of DM, HTN, depression and also with Hx of heroin abuse presents to the ED requesting detox. Patient was prescreened prior to arrival to the ED. Patient states she snorts heroin, last use was this morning [employer]SE[employer], she states she wants detox because she is tired of using drugs. Patient is also c/o abdominal cramping and diarrhea. Patient denies fever, chills, headache , SI/HI, hallucinations. Time Seen by Provider: 08/28/17 11:56 Chief Complaint (Nursing): Medical Clearance History Per: Patient History/Exam Limitations: no limitations Onset/Duration Of Symptoms: Hrs Current Symptoms Are (Timing): Still Present Suicide/Self Injury Attempted (Context): None Modifying Factor(s): Other (Heroin) Associated Symptoms: Depression. denies: Suicidal Thoughts, Suicidal Plan Involuntary Hold By: None Recent travel outside of the [place]: No Additional History Per: Patient Past Medical History Reviewed: Historical Data, Nursing Documentation, Vital Signs Vital Signs: Last Vital Signs Temp 99.0 F 08/28/17 12:06 Pulse 69 08/28/17 12:06 Resp 18 08/28/17 12:06 BP 119/74 08/28/17 12:06 Pulse Ox 96 08/28/17 12:47 - Medical History PMH: Anxiety, Arthritis, Asthma, Back Problems, COPD, Dementia, Depression, Gastritis, GERD, HTN, Hypercholesterolemia, Schizophrenia, Seizures, Chronic Pain (neck and back) Denies: Anemia, Diabetes, Hepatitis, HIV, Chronic Kidney Disease, Sexually Transmitted Disease Surgical History: Appendectomy, Back Surgery, Cholecystectomy Denies: Pacemaker - [facility] Procedures COLONOSCOPY (04/22/12) ESOPHAGOGASTRODUODENOSCOPY [EGD] W/CLOSED BIOPSY (02/04/15) GROUP PSYCHOTHERAPY (11/08/16) INDIVIDUAL PSYCHOTHERAPY, COGNITIVE-BEHAVIORAL (11/08/16) INSERT INFUSION DEV IN R INT JUGULAR VEIN, PERC (11/11/16) INSERTION OF ENDOTRACHEAL AIRWAY INTO TRACHEA, VIA OPENING (11/11/16) RESPIRATORY VENTILATION, 24-96 CONSECUTIVE HOURS (11/11/16) Family History: States: Unknown Family Hx - Social History Hx Tobacco Use: Yes Hx Alcohol Use: No Hx Substance Use: Yes - Immunization History Hx Tetanus Toxoid Vaccination: No Hx Influenza Vaccination: No Hx Pneumococcal Vaccination: Yes Review Of Systems Constitutional: Negative for: Fever, Chills Cardiovascular: Negative for: Chest Pain, Palpitations Respiratory: Negative for: Cough, Shortness of Breath Gastrointestinal: Positive for: Abdominal Pain, Diarrhea. Negative for: Nausea , Vomiting Musculoskeletal: Negative for: Back Pain Skin: Negative for: Rash Neurological: Negative for: Weakness, Numbness, Headache Physical Exam - Physical Exam Appears: Non-toxic, Other (Slow to respond ) Skin: Normal Color, Warm, Dry Head: Atraumatic, Normacephalic Nose: No Discharge, No Deformity Oral Mucosa: Moist Neck: Normal ROM, Supple Chest: Symmetrical Cardiovascular: Rhythm Regular, No Murmur Respiratory: Normal Breath Sounds, No Rales, No Rhonchi, No Wheezing Gastrointestinal/Abdominal: Soft, No Tenderness, No Distention, No Rebound Extremity: Normal ROM, No Pedal Edema, No Calf Tenderness, No Deformity, No Swelling Neurological/Psych: Oriented x3, Normal Speech (Slow to respond), Normal Cognition ED Course And Treatment - Laboratory Results Result Diagrams: 08/28/17 12:30 08/28/17 12:30 O2 Sat by Pulse Oximetry: 96 (On RA) Pulse Ox Interpretation: Normal Medical Decision Making Medical Decision Making: Impression : 62 y/o female prescreened for detox with abdominal cramping and diarrhea. Plan: * Blood work * UA Disposition Counseled Patient/Family Regarding: Studies Performed, Diagnosis - Disposition Disposition: HOSPITALIZED Disposition Time: 13:39 Condition: GUARDED - Clinical Impression Clinical Impression: Opioid abuse - Scribe Statement The provider has reviewed the documentation as recorded by the Scribe Moose Lafleur All medical record entries made by the Scribe were at my direction and personally dictated by me. I have reviewed the chart and agree that the record accurately reflects my personal performance of the history, physical exam, medical decision making, and the department course for this patient. I have also personally directed, reviewed, and agree with the discharge instructions and disposition. Decision To Admit - Pt Status Changed To: Hospital Disposition Of: Inpatient - Admit Certification Admit to Inpatient:: After my assessment, the patient will require hospitalization for at least two midnights. This is because of the severity of symptoms shown, intensity of services needed, and/or the medical risk in this patient being treated as an outpatient. - InPatient: Physician Admission Certification: I certify that this patient requires 2 or more midnights of care for the following reason:: needs inpatient detox - . Bed Request Type: Detox Admitting Physician: Sia Wren Patient Diagnosis: Opioid abuse
[2017-08-28 13:30] LABS: ALB/GLOB RATIO 0.9 (1.0-2.1); ALKALINE PHOSPHATASE 53 U/L (38-126); ALT/SGPT 33 U/L (9-52); AST/SGOT 38 U/L (14-36); BILIRUBIN,TOTAL 0.5 mg/dL (0.2-1.3); BLOOD UREA NITROGEN 9 mg/dL (7-17); CALCIUM 8.7 mg/dl (8.6-10.4); CARBON DIOXIDE 28 mmol/L (22-30); CHLORIDE 97 mmol/L (98-107); GFR AFRICAN-AMERICAN > 60; GLUCOSE,RANDOM 107 mg/dL (65-105); POTASSIUM 3.3 mmol/L (3.6-5.2); SODIUM 131 mmol/L (132-148); TOTAL PROTEIN 7.7 g/dL (6.3-8.3)
--- NOTE | 2017-08-28 15:06 | PCM.BM ---
<Elsie Acuña - Last Filed: 08/28/17 15:04> Treatment Plan Problems - Problems identified on initial assessmt Potential for opiate withdrawal Date Initiated: 08/28/17 Assessment reference: NA Status: Active Treatment assets and liabiliti Patient Assests: adapts well, cooperative, motivated, ADL independent Patient Liabilities: substance abuse - Milieu Protocol Maintain good personal hygiene: daily Encourage regular showers, daily Remind patient to perform daily oral care, daily Assist patient to perform ADL's Conduct patient checks and document Observation sheet: Q15 minutes Maintain personal safety: every shift Educate patient to report safety concerns to staff, every shift Monitor environment for contraband/sharps Medication safety: Monitor for expected outcome, potential side effects: every shift, Assess barriers to learning: every shift, Assess readiness for medication education: every shift <Isatu Priest - Last Filed: 08/29/17 11:08> Family Contact Family involvement: Famliy/SO not involved Family contact: Patient agrees to contact - Goals for Treatment Patient goals for treatment: COMPLETE DETOX AND APPLY FOR S/T REHAB. Discharge/Continuing Care - Education Needs Education Needs: Patient Medication, Patient Diagnosis/Disease Process, Patient Coping Skills, Patient Anger Management skills, Patient Placement options, Patient Community resources, Patient Other (FRUSTRATION TOLERANCE) - Discharge Discharge Criteria: Free of agitation, No longer exhibiting s/s of withdrawal, Reduction of target symptoms Discharge to:: Home, With Family - Treatment Team Participation Patient/Family/SO Statement: 08/29/17 11:09 "I THINK I WANNA GO TO OUTPATIENT". Discussed with Family/SO: No Was Patient/Family/SO present at Treatment Team Meeting: Yes <Sia Wren - Last Filed: 08/31/17 09:21> - Diagnosis (1) Opioid dependence Status: Acute Interventions: 08/31/17 09:21 * Assess 7x/week regarding severity of withdrawal * Educate regarding risks, benefits, side effects and alternatives of medications * Use Motivational Interviewing for abstinence * Use CBT for relapse prevention * Medication management for withdrawal symptoms * Encourage medication assisted treatment *
[2017-08-28] MEDS: Potassium Chloride 20 mEq ER Tab PO SCH (16:28)
[2017-08-28] MEDS ORDERED: Buprenorphine Hydrochloride 2 mg SL ONE (18:37)
[2017-08-29 07:49] LABS: ALB/GLOB RATIO 1.2 (1.0-2.1); ALKALINE PHOSPHATASE 55 U/L (38-126); ALT/SGPT 28 U/L (9-52); AST/SGOT 34 U/L (14-36); BILIRUBIN,TOTAL 0.6 mg/dL (0.2-1.3); BLOOD UREA NITROGEN 10 mg/dL (7-17); CALCIUM 8.5 mg/dl (8.6-10.4); CARBON DIOXIDE 30 mmol/L (22-30); CHLORIDE 102 mmol/L (98-107); GFR AFRICAN-AMERICAN > 60; GLUCOSE,RANDOM 92 mg/dL (65-105); MAGNESIUM 1.7 mg/dL (1.6-2.3); POTASSIUM 3.1 mmol/L (3.6-5.2); SODIUM 135 mmol/L (132-148); TOTAL PROTEIN 6.5 g/dL (6.3-8.3)
[2017-08-29 08:37] LABS: THYROID STIMULATING HORMONE 0.33 mIU/L (0.46-4.68)
--- NOTE | 2017-08-29 08:48 | PCM.PSYCH ---
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 Patient had an education level up to 10th grade. The patient reports heroin use for a long time; she started using heroin at the age of 31 intermittently and has been using 8-9 bags of heroin daily intranasal consistently for the past 1-2 years. Patient stated that she started using heroin as of depression, pain and personal life issues. Patient last use 6 bags of heroin two days ago intranasal (08/20/17). Patient denies any other substance use other than heroin Patient smokes 1.5 PPD of cigarettes daily for many years now and she would like a nicotine patch during this detox admission Patient admits to moderate alcohol use, 2-3 cans of beer 4x per week ( denies shakes or hx of DTs). Patient has been to detox once in [place] and has never been to rehabilitation. She was participating in a methadone clinic approximately 5 years ago During this detox admission, patient is interested in methadone detox Past psych history: depression ( states she is on lexapro and risperidone) Family psych history: Denies Medical history: High blood pressure and DM ( States she is on lorsatan, Clonidine, Norvasc and metformin 500mg po bid ) Current Medications: Active Medications Generic Name Dose Route Start Last Admin Trade Name Freq PRN Reason Stop Dose Admin Al Hydrox/Mg Hydrox/Simethicone 30 ml 08/28/17 15:21 Maalox 30 Ml PO TID PRN Indigestion / Heartburn Amlodipine Besylate 10 mg 08/28/17 15:30 08/28/17 16:28 Norvasc PO 10 mg DAILY FLAKO Administration Clonidine HCl 0.1 mg 08/28/17 15:21 08/29/17 06:36 Catapres PO 0.1 mg Q8 PRN Administration COWS Score More or Equal to 5 Gabapentin 300 mg 08/28/17 18:00 08/28/17 18:11 Neurontin PO 300 mg BID FLAKO Administration Hydrochlorothiazide 25 mg 08/29/17 10:00 Hydrodiuril PO DAILY FLAKO Hydroxyzine HCl 25 mg 08/28/17 15:27 Atarax PO Q4H PRN Anxiety Loperamide HCl 2 mg 08/28/17 15:21 Imodium PO Q8 PRN Diarrhea Loratadine 10 mg 08/29/17 10:00 Claritin PO DAILY FLAKO Losartan Potassium 100 mg 08/28/17 15:30 08/28/17 16:31 Cozaar PO 100 mg DAILY FLAKO Administration Ondansetron HCl 4 mg 08/28/17 15:21 Zofran Tab PO Q8 PRN Nausea/Vomiting Pantoprazole Sodium 20 mg 08/29/17 10:00 Protonix Ec Tab PO DAILY FLAKO Potassium Chloride 20 meq 08/28/17 15:30 08/28/17 16:28 K-Dur 20 Meq Er Tab PO 08/31/17 15:31 20 meq DAILY FLAKO Administration Risperidone 0.5 mg 08/28/17 22:00 08/28/17 21:26 Risperdal Tab PO 0.5 mg HS FLAKO Administration Trazodone HCl 50 mg 08/28/17 15:27 08/28/17 21:26 Desyrel PO 50 mg HS PRN Administration Insomnia Past Psychiatric History - Past Psychiatric History Pertinent Medical Hx (Current Medical&Sleep Prob, Allergies): Allergies Allergy/AdvReac Type Severity Reaction Status Date / Time No Known Allergies Allergy Verified 08/28/17 09:59 Losartan [Cozaar] 50 mg PO DAILY #30 tab 11/16/16 amLODIPine [Norvasc] 10 mg PO DAILY #30 tab 11/16/16 cloNIDine [Catapres] 0.1 mg PO BID #60 tab 11/16/16 Loratadine [Claritin] 10 mg PO DAILY #14 tab 08/19/17 metFORMIN [glucOPHAGE] 500 mg PO BID 08/26/17 Review of Systems - Constitutional Constitutional: Chills, Sweats - Gastrointestinal Gastrointestinal: Abdominal Pain, Diarrhea, Nausea. absent: Vomiting - Neurological Neurological: UNREMARKABLE - Psychiatric Psychiatric: Anxiety, Depression Mental Status Examination - Affect Affect: Depressed - Motor Activity Motor Activity: Calm - Reliability in Providing Information Reliability in Providing Information: Fair - Speech Speech: Organized - Mood Mood: Depressed, Anxious - Formal Thought Process Formal Thought Process: No Impairment - Obsessions/Compulsions Obsessions: No Compulsions: No - Cognitive Functions Orientation: Person, Place, Situation Sensorium: Alert Attention/Concentration: Attentive Judgement: Intact, as evidence by: Insight regarding need for hospitalization Memory: Recent intact, as evidence by: 11/09 object recall - Risk Risk: Withdrawal - Strength & Assets Inventory Strength & Assets Inventory: Cooperative - Limitations Limitations: Living alone DSM 5 DX - DSM 5 DSM 5 Diagnosis: Opioid withdrawal Opioid use disorder---> severe Anxiety disorder, unspecified Depression - Recommended/Plan of Treatment Treatment Recommendations and Plan of Treatment: Opioid use disorder: -Methadone detox -Imodium for diarrhea symptoms -When necessary medications -Support and psychoeducation -Motivational interviewing -CBT for relapse prevention -Attend self-groups -Encourage MAT -Maintenance medications after discharge Anxiety disorder-- Unspecified: - Relaxation skills - CBT - Gabapentin 300mg PO TID -Atarax 25mg PO Q4H prn -Ativan 0.5mg PO Q6 prn Depression -Lexapro 10mg po daily Tobacco use disorder - Nicotine patch -Smoking cessation education Projected ELOS: 4 Prognosis: Fair Discharge Plan and Discharge Criteria: Inpatient rehabilitation - Smoking Cessation Smoking Cessation Initiated: Yes
[2017-08-29] MEDS: Potassium Chloride 20 mEq ER Tab PO SCH (09:22)
[2017-08-29] MEDS: Pantoprazole 20 mg EC Tab PO SCH (09:22)
[2017-08-29] MEDS: Aluminum Hydroxide/Magnesium Hydroxide Susp (30 mL) PO PRN ×2 (14:14→18:11)
[2017-08-30] MEDS: Pantoprazole 20 mg EC Tab PO SCH (09:23)
[2017-08-30] MEDS: Potassium Chloride 20 mEq ER Tab PO SCH (10:32)
--- NOTE | 2017-08-30 11:25 | PCM.PYCHPN ---
Psychiatric Progress Note - Psychiatric Progress Note Patient seen today, length of contact: 15 minutes Patient Chief Complaint: "I am trying to be okay, I can't sleep" Problems Identified/Issues Discussed: The pt is seen, chart reviewed, case discussed with staff. The pt is complaint with medications and reports no side-effects Symptoms are improving but needs more time to stabilize; patient complains of moderate sleep disturbance After care discussed, support and psycoeducation given Medication Change: Yes (Detox change daily, added seroquel 100mg and trazone 100mg PRN ) Medical Record Reviewed: Yes Mental Status Examination - Cognitive Function Orientation: Person, Place, Situation Memory: Impaired Attention: WNL Concentration: WNL Association: WNL - Mood Mood: Depressed, Anxious - Affect Affect: Constricted, Depressed - Speech Speech: Appropriate - Formal Thought Process Formal Thought Process: No Impairment - Suicidal Ideation Suicidal Ideation: No - Homicidal Ideation Homicidal Ideation: No Goal/Treatment Plan - Goal/Treatment Plan Need for Continued Stay: Discharge may exacerbated symptoms Progress Toward Problem(s) and Goals/Treatment Plan: Opioid use disorder: -Methadone detox -Imodium for diarrhea symptoms -When necessary medications -Support and psychoeducation -Motivational interviewing -CBT for relapse prevention -Attend self-groups -Encourage MAT -Maintenance medications after discharge -Upon discharge, the plan is for patient to go [facility] Anxiety disorder-- Unspecified: - Relaxation skills - CBT - Gabapentin 300mg PO TID -Atarax 25mg PO Q4H prn -Ativan 0.5mg PO Q6 prn Depression -Lexapro 10mg po daily Insomnia - Trazadone 100mg PO HS PRN - Seroquel 100mg PO HS Tobacco use disorder - Nicotine patch -Smoking cessation education Estimated Date of D/C: 08/27/17 - Smoking Cessation Smoking Cessation Initiated: Yes
[2017-08-30] MEDS ORDERED: Potassium Chloride 20 mEq ER Tab PO ONE (17:00)
[2017-08-31] MEDS: Pantoprazole 20 mg EC Tab PO SCH (09:47)
[2017-08-31] MEDS: Potassium Chloride 20 mEq ER Tab PO SCH (10:36)
[2017-08-31 13:49] VITALS: RESP 18
--- NOTE | 2017-08-31 14:01 | PCM.PYCHPN ---
Psychiatric Progress Note - Psychiatric Progress Note Patient seen today, length of contact: 15 minutes Patient Chief Complaint: "I'm feeling good" Problems Identified/Issues Discussed: The pt is seen and evaluated, chart reviewed, case discussed with staff. The patient reported that she is feeling better and good. She reported improvement in sleep and appetite The pt is compliant with medications and reports no side-effects. Symptoms are improving but needs more time to stabilize. The patient reported improvement in depressive symptoms. She denied suicidal and homicidal ideation intent or plan After care discussed, support and psychoeducation given. Medication Change: Yes (Detox change daily, added seroquel 100mg and trazone 100mg PRN ) Medical Record Reviewed: Yes Mental Status Examination - Cognitive Function Orientation: Person, Place, Situation Memory: Impaired Attention: WNL Concentration: WNL Association: WNL Decription of patient's judgement and insights: Good/good - Mood Mood: Depressed, Anxious - Affect Affect: Constricted, Depressed - Speech Speech: Appropriate - Formal Thought Process Formal Thought Process: No Impairment Psychotic Thoughts and Behaviors: Denied Additional comments: Calm and cooperative - Suicidal Ideation Suicidal Ideation: No - Homicidal Ideation Homicidal Ideation: No Goal/Treatment Plan - Goal/Treatment Plan Need for Continued Stay: Discharge may exacerbated symptoms Progress Toward Problem(s) and Goals/Treatment Plan: Opioid use disorder: -Methadone detox -Imodium for diarrhea symptoms -When necessary medications -Support and psychoeducation -Motivational interviewing -CBT for relapse prevention -Attend self-groups -Encourage MAT -Maintenance medications after discharge -Upon discharge, the plan is for [facility] to [facility] Anxiety disorder-- Unspecified: - Relaxation skills - CBT - Gabapentin 300mg PO TID -Atarax 25mg PO Q4H prn -Ativan 0.5mg PO Q6 prn Depression -Lexapro 10mg po daily Insomnia - Trazadone 100mg PO HS PRN - Seroquel 100mg PO HS Tobacco use disorder - Nicotine patch -Smoking cessation education Estimated Date of D/C: 09/03/17 - Smoking Cessation Smoking Cessation Initiated: Yes
[2017-09-01] MEDS: Pantoprazole 20 mg EC Tab PO SCH (09:08)
--- NOTE | 2017-09-01 09:22 | PCM.PYCHDC ---
Mental Status Examination - Mental Status Examination Orientation: Person, Place, Situation, Time Memory: Impaired Mood: Depressed, Anxious Affect: Constricted Speech: Slurred Attention: Poor Concentration: Poor Association: WNL Fund of Knowledge: Poor Formal Thought Process: No Impairment Suicidal Ideation: No Current Homicidal Ideation?: No Discharge Summary - Discharge Note Reason for Hospitalization: Heroin detox Psychiatric History (includes Medical, Family, Personal Hx): Questionable bipolar d/o. Likely depression, anxiety and possible personali Laboratory Data: Abnormal Lab Results 08/30/17 08/30/17 08/31/17 08:24 18:05 08:28 POC Glucose (mg/dL) 100 149 H 77 Consultations:: List each consultation separately and include: 1. Reason for request. 2. Findings. 3. Follow-up Summary of Hospital Course include:: 1. Description of specific treatment plan utilized for patients during their course of treatmen. 2. Summarize the time- course for resolution of acute symptoms and/or regressed behaviors. 3. Describe issues identified and worked on during hospitalization. 4. Describe medication utilized. 5. Describe medical problems identified and treated. 6. Reassessment of suicide risk Summary of Hospital Course: The pt was admitted and started on treatment with psychotherapy, support, psychoeducation and medications. [place] and CBT used. The pt attended some groups and activities, as well as milieu therapy. All the risks and benefits of medications are discussed and the patient understood and agreed. The pt improved slowly with the treatments provided. However, she threatened to AMA several times claiming doses were noyt eneough. She had little motivation to change and left the clinic at least one day early despite risks i.e. relapse, withdrawal, OD and even discussed. She was disorganized, too anxious, slow cognitively and had low insight. After care discussed with the patient. She is accepted by [facility] but she refused to go door to door. She will "try" on Saturday (today is Saturday and tomorrow is ) - Final Diagnosis (DSM 5) Condition upon Discharge: IMPROVED DSM 5: Opioid withdrawal Opioid use disorder---> severe Anxiety disorder, unspecified Depression Disposition: HOME/ ROUTINE Follow-up Treatment Plan: Continue below medications after discharge. Follow after care plan as discussed. Use relapse prevention skills Return to ER or call 911 if suicidal, homicidal or symptoms relapse. Stay away from stress, alcohol and drugs. See primary doctor regularly and get labs. Prescriptions/Medication Reconciliation: amLODIPine [Norvasc] 10 mg PO DAILY #30 tab Escitalopram [Lexapro] 10 mg PO DAILY #30 tab Gabapentin [Neurontin] 300 mg PO BID #60 cap hydroCHLOROthiazide [Hydrodiuril] 25 mg PO DAILY #30 tab Loratadine [Claritin] 10 mg PO DAILY #30 tab Losartan [Cozaar] 100 mg PO DAILY #30 tab Pantoprazole [Protonix EC Tab] 20 mg PO DAILY #30 ect QUEtiapine [Seroquel] 100 mg PO HS #30 tab
[2017-09-01 09:37] VITALS: BP 131/86; PULSE 84; TEMP 98.3; O2SAT 100
== END 2017-09-01 09:30 | disposition home or self-care (01) | DRG 897 ==
LOC: C.ER 09:51 → C.7D 13:40
PROVIDERS: ADMIT Psychiatry & Neurology Psychiatry; ATTEND Psychiatry & Neurology Psychiatry
PROC: HZ2ZZZZ Detoxification Services for Substance Abuse Treatment (ICD-10-PCS; principal; 2017-08-28)
DX: F11.23 Opioid dependence with withdrawal (principal); E11.9 Type 2 diabetes mellitus without complications; F32.9 Major depressive disorder, single episode, unspecified; F41.9 Anxiety disorder, unspecified; F17.210 Nicotine dependence, cigarettes, uncomplicated; I10 Essential (primary) hypertension; E78.00 Pure hypercholesterolemia, unspecified; K21.9 Gastro-esophageal reflux disease without esophagitis; Z79.84 Long term (current) use of oral hypoglycemic drugs; Z79.899 Other long term (current) drug therapy

== ENCOUNTER 2017-09-09 18:01 | Emergency (ER) | payer MEDICARE, OTHER ==
[2017-09-09 18:01] VITALS: BMI 27.8
[2017-09-09] MEDS ORDERED: Sodium Chloride 0.9% 1,000 ML IV STA (18:50)
--- NOTE | 2017-09-09 18:52 | C.PDOC ---
History Of Present Illness 62 y/o F c history of UTIs p/w dysuria, malodorous urine x 5 days associated with R flank pain for the same amount of time but much worse today. Reports nausea. Denies abdominal pain, upper back pain, chest pain, cough, fever, chills. Time Seen by Provider: 09/09/17 18:45 Chief Complaint (Nursing): High Blood Pressure Past Medical History Vital Signs: Last Vital Signs Temp 98.6 F 09/09/17 20:30 Pulse 70 09/09/17 20:30 Resp 18 09/09/17 20:30 BP 148/90 09/09/17 20:30 Pulse Ox 100 09/09/17 20:30 - Medical History PMH: Anxiety, Arthritis, Asthma, Back Problems, COPD, Dementia, Depression, Gastritis, GERD, HTN, Hypercholesterolemia, Schizophrenia, Seizures, Chronic Pain (neck and back) Denies: Anemia, Diabetes, Hepatitis, HIV, Chronic Kidney Disease, Sexually Transmitted Disease Surgical History: Appendectomy, Back Surgery, Cholecystectomy Denies: Pacemaker - [facility] Procedures COLONOSCOPY (04/22/12) DETOXIFICATION SERVICES FOR SUBSTANCE ABUSE TREATMENT (08/28/17) ESOPHAGOGASTRODUODENOSCOPY [EGD] W/CLOSED BIOPSY (02/04/15) GROUP PSYCHOTHERAPY (11/08/16) INDIVIDUAL PSYCHOTHERAPY, COGNITIVE-BEHAVIORAL (11/08/16) INSERT INFUSION DEV IN R INT JUGULAR VEIN, PERC (11/11/16) INSERTION OF ENDOTRACHEAL AIRWAY INTO TRACHEA, VIA OPENING (11/11/16) RESPIRATORY VENTILATION, 24-96 CONSECUTIVE HOURS (11/11/16) Family History: States: Unknown Family Hx - Social History Hx Tobacco Use: Yes Hx Alcohol Use: No Hx Substance Use: No - Immunization History Hx Tetanus Toxoid Vaccination: No Hx Influenza Vaccination: No Hx Pneumococcal Vaccination: Yes Review Of Systems Except As Marked, All Systems Reviewed And Found Negative. Constitutional: Negative for: Fever Cardiovascular: Negative for: Chest Pain Physical Exam - Physical Exam Additional Physical Exam Comments: Constitutional: No acute distress. Head: Normocephalic. Atraumatic. Eyes: PERRL. ENT: Moist mucous membranes. Neck: Supple. Cardiovascular: Regular rate. Radial pulse 2+ bilaterally. Chest: No tenderness. Back: R CVA tenderness. Respiratory: Clear to auscultation bilaterally. GI: Soft. Nondistended. Suprapubic tenderness. Back: No CVA tenderness. Musculoskeletal: No tenderness to extremities. Skin: No rash. Neurologic: Alert, no focal deficit. ED Course And Treatment - Laboratory Results Result Diagrams: 09/09/17 20:42 09/09/17 19:44 O2 Sat by Pulse Oximetry: 96 Medical Decision Making Medical Decision Making: IMPRESSION: No acute pathology. Previous cholecystectomy and splenectomy. Probably previous hysterectomy. No hydronephrosis is appreciated. No radiodense urinary tract stones are visualized. Patient in no acute distress while waiting in ED. Will discharge on antibiotics for dysuria, f/u PMD, instructed to return to ED for worsening pain , fever, vomiting, or dyspnea. CXR no acute disease. Disposition - Disposition Disposition: HOME/ ROUTINE Disposition Time: 22:30 Condition: STABLE Prescriptions: Ibuprofen [Motrin] 600 mg PO Q6 #25 tab levoFLOXacin [Levaquin] 1 tab PO DAILY #10 tab Instructions: Dysuria (ED) Forms: [facility] (Serbian) - Clinical Impression Clinical Impression: Dysuria
[2017-09-09] MEDS ORDERED: Sodium Chloride 0.9% 1,000 ML ONE (19:35)
[2017-09-09 19:56] LABS: SQUAMOUS EPITHIAL 1 /hpf (0-5); URINE BILIRUBIN NEGATIVE (NEGATIVE); URINE BLOOD NEGATIVE (NEGATIVE); URINE CLARITY Clear (Clear); URINE COLOR Straw (YELLOW); URINE GLUCOSE (UA) NORMAL (Normal); URINE LEUKOCYTE ESTERASE NEG Leu/uL (Negative); URINE NITRATE NEGATIVE (NEGATIVE); URINE PROTEIN NEGATIVE (NEGATIVE); URINE UROBILINOGEN NORMAL mg/dL (0.2-1.0)
[2017-09-09 20:07] LABS: ALB/GLOB RATIO 1.1 (1.0-2.1); ALBUMIN 4.5 g/dL (3.5-5.0); ALT/SGPT 51 U/L (9-52); AST/SGOT 67 U/L (14-36); BLOOD UREA NITROGEN 8 mg/dL (7-17); CALCIUM 9.6 mg/dl (8.6-10.4); GFR AFRICAN-AMERICAN > 60; GFR NON-AFRICAN AMERICAN > 60
[2017-09-09 20:51] LABS: MEAN PLATELET VOLUME 8.9 fL (7.2-11.7)
[2017-09-09 20:55] LABS: HEMOGLOBIN 12.5 g/dL (11.0-16.0); MEAN CELL VOLUME 86.2 fL (81.0-99.0); MEAN CORPUSCULAR HEMOGLOBIN 28.9 pg (27.0-31.0); MEAN CORPUSCULAR HGB CONC 33.5 g/dL (33.0-37.0); RBC 4.31 Mil/uL (3.80-5.20); RED CELL DISTRIBUTION WIDTH 15.8 % (11.5-14.5); WHITE BLOOD COUNT 11.3 K/uL (4.8-10.8)
[2017-09-09 21:29] LABS: BASO % 1.3 % (0.0-2.0); EOS % 1.8 % (0.0-4.0); LYMPH # 6.6 K/uL (1.0-4.3); LYMPH % 58.3 % (20.0-40.0); MONO % 5.8 % (0.0-10.0); NEUT # 3.7 K/uL (1.8-7.0); NEUT % 32.8 % (50.0-75.0); NRBC % 0.2 % (0.0-2.0)
[2017-09-09 21:30] LABS: BASO # 0.1 K/uL (0.0-0.2); EOS # 0.2 K/uL (0.0-0.7); MONO # 0.7 K/uL (0.0-0.8)
[2017-09-09] MEDS ORDERED: Iohexol 300 100 ML IJ ONE (21:37)
[2017-09-09 23:14] VITALS: BP 118/69; PULSE 60; RESP 16; TEMP 98; O2SAT 100
--- NOTE | 2017-09-10 09:53 | RAD ---
HISTORY: r/o PNA COMPARISON: 07/17/2017 chest x-ray. CT chest 2016 - upper lobe centrilobular emphysematous changes displayed TECHNIQUE: Chest PA and lateral FINDINGS: LUNGS: No consolidation. Mild bilateral hyperaeration PLEURA: No significant pleural effusion identified. No pneumothorax apparent. CARDIOVASCULAR: Normal. OSSEOUS STRUCTURES: No significant abnormalities. VISUALIZED UPPER ABDOMEN: Normal. OTHER FINDINGS: None. IMPRESSION: No interval pathology noted. Specifically no consolidative infiltrate. Bilateral hyperaeration -unchanged
--- NOTE | 2017-09-10 11:12 | CT ---
PROCEDURE: CT Abdomen and Pelvis with contrast HISTORY: back pain, dysuria COMPARISON: None available. TECHNIQUE: Contrast dose: 100 mL Omnipaque 300 Radiation dose: Total exam DLP = 452.24 mGy-cm. This CT exam was performed using one or more of the following dose reduction techniques: Automated exposure control, adjustment of the mA and/or kV according to patient size, and/or use of iterative reconstruction technique. FINDINGS: LOWER THORAX: No visible consolidation, pleural effusion, or pneumothorax. LIVER: Unremarkable. GALLBLADDER AND BILE DUCTS: Cholecystectomy. Mildly dilated common bile duct measuring approximately 7 mm in diameter. PANCREAS: Unremarkable. SPLEEN: Diminutive spleen or splenule without focal abnormality ADRENALS: Unremarkable. KIDNEYS AND URETERS: The kidneys enhance symmetrically. No hydronephrosis or obstructing calculus identified. VASCULATURE: No aortic aneurysm. BOWEL: Stomach is nondistended. Lack of oral contrast limits evaluation for bowel pathology. Bowel loops appear within normal limits of caliber without evidence of obstruction. APPENDIX: The appendix appears within normal limits of caliber. No secondary signs of acute appendicitis. PERITONEUM: No significant free fluid. No definite free air. LYMPH NODES: No bulky adenopathy identified. BLADDER: Unremarkable. REPRODUCTIVE: Uterus is absent, presumably due to hysterectomy. BONES: Degenerative changes. OTHER FINDINGS: None. IMPRESSION: No acute pathology identified. Additional findings as above. Preliminary impression was provided by virtual radiologic.
--- NOTE | 2017-09-10 13:46 | CARD ---
APPROVED REPORT EKG Measurement Heart Spqu12ITAT IN [id number] <Conclusion> Normal sinus rhythm Normal ECG
== END 2017-09-09 23:52 | disposition home or self-care (01) ==
LOC: C.ER 18:01
DX: R30.0 Dysuria (principal)
CPT/HCPCS: 71046; 74177; 80053; 81001; 85025; 87086; 93005; 96361; 96374; 96375; 99285; J1885; J2405; J7040; Q9967

== ENCOUNTER 2017-10-12 17:04 | Emergency (ER) | payer MEDICARE, OTHER ==
[2017-10-12 17:04] VITALS: BMI 27.8
[2017-10-12 18:26] LABS: BASO # 0.1 K/uL (0.0-0.2); BASO % 1.2 % (0.0-2.0); EOS # 0.3 K/uL (0.0-0.7); EOS % 3.2 % (0.0-4.0); HEMOGLOBIN 12.4 g/dL (11.0-16.0); LYMPH # 4.1 K/uL (1.0-4.3); LYMPH % 51.2 % (20.0-40.0); MEAN CELL VOLUME 86.3 fL (81.0-99.0); MEAN CORPUSCULAR HEMOGLOBIN 29.3 pg (27.0-31.0); MONO # 0.8 K/uL (0.0-0.8); MONO % 9.7 % (0.0-10.0); NEUT # 2.8 K/uL (1.8-7.0); NEUT % 34.7 % (50.0-75.0); NRBC % 0.1 % (0.0-2.0); RBC 4.22 Mil/uL (3.80-5.20); RED CELL DISTRIBUTION WIDTH 15.4 % (11.5-14.5)
[2017-10-12 18:39] LABS: ALB/GLOB RATIO 1.2 (1.0-2.1); ALBUMIN 3.9 g/dL (3.5-5.0); ALT/SGPT 38 U/L (9-52); AST/SGOT 41 U/L (14-36); BLOOD UREA NITROGEN 10 mg/dL (7-17); CALCIUM 9.2 mg/dl (8.6-10.4); GFR AFRICAN-AMERICAN > 60; GFR NON-AFRICAN AMERICAN > 60
[2017-10-12 19:53] VITALS: RESP 20
[2017-10-12] MEDS ORDERED: DiphenhydrAMINE 50 mg/ml Inj IVP STA (19:55)
[2017-10-12] MEDS ORDERED: Sodium Chloride 0.9% 1,000 ML IV ONE (19:56)
--- NOTE | 2017-10-12 21:32 | C.PDOC ---
History Of Present Illness 62 y/o female presents to ED with complaints of right sided headache and pain that began 4 days ago. Pt states associated symptoms are neck, back and shoulder pain. Pt states headache is not the worst headache of her life and has had similar headaches in the past. Pt describes pain as pounding. Denies fever, rashes, or hx of migraines. Chief Complaint (Nursing): Headache History Per: Patient History/Exam Limitations: no limitations Onset/Duration Of Symptoms: Days (4) Current Symptoms Are (Timing): Still Present Quality: Other (pounding, not worst headache of life) Preceeding Symptoms: None Associated Symptoms: denies: Photophobia, Blurred Vision, Nausea, Vomiting Recent travel outside of the [place]: No Past Medical History Reviewed: Historical Data, Nursing Documentation, Vital Signs Vital Signs: Last Vital Signs Temp 98.8 F 10/12/17 21:40 Pulse 66 10/12/17 21:40 Resp 20 10/12/17 21:40 BP 164/92 H 10/12/17 21:40 Pulse Ox 100 10/12/17 21:52 - Medical History PMH: Anxiety, Arthritis, Asthma, Back Problems, COPD, Dementia, Depression, Emphysema, Gastritis, GERD, HTN, Hypercholesterolemia, Schizophrenia, Seizures, Chronic Pain (neck and back) Surgical History: Appendectomy, Back Surgery, Cholecystectomy Denies: Pacemaker - [facility] Procedures COLONOSCOPY (04/22/12) DETOXIFICATION SERVICES FOR SUBSTANCE ABUSE TREATMENT (08/28/17) ESOPHAGOGASTRODUODENOSCOPY [EGD] W/CLOSED BIOPSY (02/04/15) GROUP PSYCHOTHERAPY (11/08/16) INDIVIDUAL PSYCHOTHERAPY, COGNITIVE-BEHAVIORAL (11/08/16) INSERT INFUSION DEV IN R INT JUGULAR VEIN, PERC (11/11/16) INSERTION OF ENDOTRACHEAL AIRWAY INTO TRACHEA, VIA OPENING (11/11/16) RESPIRATORY VENTILATION, 24-96 CONSECUTIVE HOURS (11/11/16) Family History: States: Unknown Family Hx - Social History Hx Tobacco Use: Yes Hx Alcohol Use: Yes Hx Substance Use: No - Immunization History Hx Tetanus Toxoid Vaccination: Yes Hx Influenza Vaccination: Yes Hx Pneumococcal Vaccination: Yes Review Of Systems Constitutional: Negative for: Fever Gastrointestinal: Negative for: Nausea, Vomiting Musculoskeletal: Positive for: Neck Pain, Shoulder Pain, Back Pain Skin: Negative for: Rash Neurological: Positive for: Headache. Negative for: Weakness, Numbness Physical Exam - Physical Exam Appears: Well, Non-toxic, No Acute Distress Skin: Normal Color, Warm, Dry Head: Atraumatic, Normacephalic Eye(s): bilateral: Normal Inspection Oral Mucosa: Moist Neck: Supple Chest: Symmetrical, No Tenderness Cardiovascular: Rhythm Regular Respiratory: Normal Breath Sounds, No Rales, No Rhonchi, No Wheezing Gastrointestinal/Abdominal: Soft, No Tenderness, No Distention Extremity: Normal ROM, No Tenderness, No Pedal Edema, Other (negative brudzinski and kernig test) Neurological/Psych: Oriented x3, Normal Speech, Normal Cognition ED Course And Treatment - Laboratory Results Result Diagrams: 10/12/17 18:23 10/12/17 18:23 O2 Sat by Pulse Oximetry: 100 (RA) Pulse Ox Interpretation: Normal Medical Decision Making Medical Decision Making: Administered Toradol, Benadryl, and Compazine. Ordered blood work. Pt's Headache is better and she is stable for discharge. Pt sent home with headache medication specifically for migraines. Disposition - Disposition Referrals: [facility] at [facility] [Outside] Disposition: HOME/ ROUTINE Disposition Time: 22:00 Condition: GOOD Prescriptions: Acetaminophen/Butalbital/Caf [Fioricet] 1 tab PO TID PRN #21 tab PRN Reason: pain Instructions: Acute Headache (ED) Forms: [facility] (Azeri) - Clinical Impression Clinical Impression: Migraine - Scribe Statement The provider has reviewed the documentation as recorded by the Scribmaria del carmen Bolden All medical record entries made by the Scribe were at my direction and personally dictated by me. I have reviewed the chart and agree that the record accurately reflects my personal performance of the history, physical exam, medical decision making, and the department course for this patient. I have also personally directed, reviewed, and agree with the discharge instructions and disposition.
[2017-10-12 21:41] VITALS: BP 164/92; PULSE 66; TEMP 98.8
[2017-10-12 21:44] VITALS: O2SAT 100
== END 2017-10-12 23:49 | disposition home or self-care (01) ==
LOC: C.ER 17:04
DX: G43.909 Migraine, unspecified, not intractable, without status migrainosus (principal); I10 Essential (primary) hypertension; F17.210 Nicotine dependence, cigarettes, uncomplicated
CPT/HCPCS: 80053; 85025; 96372; 99285; J0780; J1885

== ENCOUNTER 2017-11-09 08:49 | Inpatient (IN) | payer MEDICARE, OTHER ==
[2017-11-09 08:49] VITALS: BMI 27.8
[2017-11-09] MEDS ORDERED: Aspirin 325 mg EC Tablets PO STA (09:36)
--- NOTE | 2017-11-09 09:39 | C.PDOC ---
History Of Present Illness 62 year old female with a past medical history of hypertension and hypercholesterolemia who presents to the emergency department with a complaint of feeling shortness of breath while sitting down with chest tightness and pain radiating to the left shoulder about 4 hours before arrival. Denies cough. Time Seen by Provider: 11/09/17 09:16 Chief Complaint (Nursing): Shortness Of Breath History Per: Patient History/Exam Limitations: no limitations Onset/Duration Of Symptoms: Hrs (4) Past Medical History Reviewed: Historical Data, Nursing Documentation, Vital Signs Vital Signs: Last Vital Signs Temp 99 F 11/09/17 09:01 Pulse 57 L 11/09/17 10:49 Resp 18 11/09/17 10:49 BP 131/82 11/09/17 10:49 Pulse Ox 97 11/09/17 11:21 - Medical History PMH: Anxiety, Arthritis, Asthma, Back Problems, COPD, Dementia, Depression, Emphysema, Gastritis, GERD, HTN, Hypercholesterolemia, Schizophrenia, Seizures, Chronic Pain (neck and back) Denies: Anemia, Diabetes, Hepatitis, HIV, Chronic Kidney Disease, Sexually Transmitted Disease Surgical History: Appendectomy, Back Surgery, Cholecystectomy Denies: Pacemaker - [facility] Procedures COLONOSCOPY (04/22/12) DETOXIFICATION SERVICES FOR SUBSTANCE ABUSE TREATMENT (08/28/17) ESOPHAGOGASTRODUODENOSCOPY [EGD] W/CLOSED BIOPSY (02/04/15) GROUP PSYCHOTHERAPY (11/08/16) INDIVIDUAL PSYCHOTHERAPY, COGNITIVE-BEHAVIORAL (11/08/16) INSERT INFUSION DEV IN R INT JUGULAR VEIN, PERC (11/11/16) INSERTION OF ENDOTRACHEAL AIRWAY INTO TRACHEA, VIA OPENING (11/11/16) RESPIRATORY VENTILATION, 24-96 CONSECUTIVE HOURS (11/11/16) Family History: States: Unknown Family Hx - Social History Hx Tobacco Use: Yes Hx Alcohol Use: Yes Hx Substance Use: No - Immunization History Hx Tetanus Toxoid Vaccination: Yes Hx Influenza Vaccination: Yes (06/2017) Hx Pneumococcal Vaccination: No Review Of Systems Except As Marked, All Systems Reviewed And Found Negative. (As per HPI, otherwise negative) Cardiovascular: Positive for: Chest Pain (tightness) Respiratory: Positive for: Shortness of Breath. Negative for: Cough Musculoskeletal: Positive for: Shoulder Pain (Left), Back Pain Physical Exam - Physical Exam Appears: Well, Non-toxic, Toxic Skin: Normal Color, Warm, Dry Cardiovascular: Rhythm Regular, No Murmur Respiratory: Normal Breath Sounds, No Decreased Breath Sounds, No Accessory Muscle Use, No Wheezing Gastrointestinal/Abdominal: Normal Exam, Soft, No Tenderness Neurological/Psych: Oriented x3 Gait: Steady ED Course And Treatment - Laboratory Results Result Diagrams: 11/09/17 10:04 11/09/17 10:04 ECG Rhythm: Sinus Rhythm (at 83 bpm. Normal [facility]. Normal interval and axis. ), Nonspecific Changes (Non specific ST and T wave changes) O2 Sat by Pulse Oximetry: 97 (RA) Pulse Ox Interpretation: Normal Medical Decision Making Medical Decision Making: Time: 0900 --EKG --AccuCheck --BNP --CMP --Lipase --Troponin I --CBC w/ diff --Ecotrin 325 mg PO --Pepcid 20 mg IVP --Urinalysis --Chest x-ray --Reevaluation Time: 1001 --Chest x-ray FINDINGS: LUNGS: Clear. PLEURA: No pneumothorax or pleural fluid seen. CARDIOVASCULAR: Atherosclerotic aortic calcifications. Cardiomediastinal silhouette within normal limits. OSSEOUS STRUCTURES: Unchanged. VISUALIZED UPPER ABDOMEN: Right upper quadrant surgical clips redemonstrated. OTHER FINDINGS: None. IMPRESSION: No active disease. Time: 1121 --Admit to hospital routine: as observation in telemetry for chest pain under the care of Dr. Niurka Savage MD Disposition Discussed With : Hussein Bah Counseled Patient/Family Regarding: Studies Performed, Diagnosis - Disposition Disposition: HOSPITALIZED Disposition Time: 11:21 Condition: FAIR Forms: [facility] (Kuwaiti) - Clinical Impression Clinical Impression: Chest pain
--- NOTE | 2017-11-09 10:02 | RAD ---
PROCEDURE: CHEST RADIOGRAPH, 1 VIEW HISTORY: chest pain COMPARISON: Chest radiograph dated 09/09/2017. FINDINGS: LUNGS: Clear. PLEURA: No pneumothorax or pleural fluid seen. CARDIOVASCULAR: Atherosclerotic aortic calcifications. Cardiomediastinal silhouette within normal limits. OSSEOUS STRUCTURES: Unchanged. VISUALIZED UPPER ABDOMEN: Right upper quadrant surgical clips redemonstrated. OTHER FINDINGS: None. IMPRESSION: No active disease.
[2017-11-09 10:08] LABS: BASO # 0.1 K/uL (0.0-0.2); BASO % 1.4 % (0.0-2.0); EOS # 0.2 K/uL (0.0-0.7); EOS % 1.7 % (0.0-4.0); HEMOGLOBIN 12.4 g/dL (11.0-16.0); LYMPH # 3.4 K/uL (1.0-4.3); LYMPH % 39.8 % (20.0-40.0); MEAN CELL VOLUME 86.8 fL (81.0-99.0); MEAN CORPUSCULAR HEMOGLOBIN 29.3 pg (27.0-31.0); MEAN CORPUSCULAR HGB CONC 33.7 g/dL (33.0-37.0); MEAN PLATELET VOLUME 9.8 fL (7.2-11.7); MONO # 0.6 K/uL (0.0-0.8); MONO % 7.2 % (0.0-10.0); NEUT # 4.3 K/uL (1.8-7.0); NEUT % 49.9 % (50.0-75.0); RBC 4.23 Mil/uL (3.80-5.20); RED CELL DISTRIBUTION WIDTH 15.3 % (11.5-14.5); WHITE BLOOD COUNT 8.6 K/uL (4.8-10.8)
[2017-11-09 10:20] LABS: ALBUMIN 3.7 g/dL (3.5-5.0); ALT/SGPT 42 U/L (9-52); AST/SGOT 37 U/L (14-36); BLOOD UREA NITROGEN 11 mg/dL (7-17); CALCIUM 9.4 mg/dl (8.6-10.4); GFR AFRICAN-AMERICAN > 60; GFR NON-AFRICAN AMERICAN > 60; LIPASE 128 U/L (23-300)
[2017-11-09 10:21] LABS: URINE BILIRUBIN NEGATIVE (NEGATIVE); URINE BLOOD NEGATIVE (NEGATIVE); URINE CLARITY Clear (Clear); URINE GLUCOSE (UA) NORMAL (Normal); URINE LEUKOCYTE ESTERASE NEG Leu/uL (Negative); URINE PROTEIN NEGATIVE (NEGATIVE); URINE UROBILINOGEN NORMAL mg/dL (0.2-1.0)
[2017-11-09 10:31] LABS: B-TYPE NATRIURETIC PEPTIDE 23.8 pg/mL (0-900)
[2017-11-09] MEDS ORDERED: Potassium Chloride 20 mEq ER Tab PO STA (10:41)
[2017-11-09 10:46] LABS: URINE COLOR YELLOW (YELLOW)
[2017-11-09] MEDS ORDERED: Potassium Chloride 20 mEq ER Tab PO ONE (10:46)
[2017-11-09] MEDS ORDERED: Morphine 4 MG/ML VIAL IV STA (11:16)
--- NOTE | 2017-11-09 17:41 | CP.PCM.HP ---
History of Present Illness - History of Present Illness History of Present Illness: CC: shortness of breath HPI: 62 year old female with a past medical history of hypertension and hypercholesterolemia who presents to the emergency department with a complaint of feeling shortness of breath while sitting down with chest tightness and pain radiating to the left shoulder about 4 hours before arrival. Denies cough. Present on Admission - Present on Admission Any Indicators Present on Admission: Yes Past Patient History - Infectious Disease Hx of Infectious Diseases: None - Past Medical History & Family History Past Medical History?: Yes - Past Social History Smoking Status: Heavy Smoker > 10 Cigarettes Daily - CARDIAC Hx Hypercholesterolemia: Yes Hx Hypertension: Yes Hx Pacemaker: No - PULMONARY Hx Asthma: Yes Hx Chronic Obstructive Pulmonary Disease (COPD): Yes Hx Emphysema: Yes - NEUROLOGICAL Hx Dementia: Yes Hx Seizures: Yes - HEENT Hx HEENT Problems: Yes Other/Comment: glasses - RENAL Hx Chronic Kidney Disease: No - ENDOCRINE/METABOLIC Hx Endocrine Disorders: Yes Hx Diabetes Mellitus Type 2: Yes - HEMATOLOGICAL/ONCOLOGICAL Hx Anemia: No Hx Human Immunodeficiency Virus (HIV): No - INTEGUMENTARY Hx Dermatological Problems: No - MUSCULOSKELETAL/RHEUMATOLOGICAL Hx Arthritis: Yes - GASTROINTESTINAL Hx Gastritis: Yes - GENITOURINARY/GYNECOLOGICAL Hx Sexually Transmitted Disorders: No - PSYCHIATRIC Hx Anxiety: Yes Hx Depression: Yes Hx Schizophrenia: Yes Hx Substance Use: No - SURGICAL HISTORY Hx Appendectomy: Yes Hx Cholecystectomy: Yes - ANESTHESIA Hx Anesthesia: Yes Hx Anesthesia Reactions: No Hx Malignant Hyperthermia: No Meds Home Medications: Home Medication List Medication Instructions Recorded Confirmed Type Aspirin [Aspirin Chewable] 81 mg PO DAILY 30 Days chew 11/14/17 Rx Rosuvastatin Calcium [Crestor] 10 mg PO HS 30 Days tab 11/14/17 Rx Allergies/Adverse Reactions: Allergies Allergy/AdvReac Type Severity Reaction Status Date / Time No Known Allergies Allergy Verified 11/09/17 09:05 Results - Vital Signs Recent Vital Signs: Last Vital Signs Temp 98.9 F 11/09/17 12:32 Pulse 61 11/09/17 17:24 Resp 16 11/09/17 14:30 BP 124/76 11/09/17 17:24 Pulse Ox 97 11/09/17 17:24 - Labs Result Diagrams: 11/13/17 11:01 11/13/17 11:01 Labs: Laboratory Results - last 24 hr 11/09/17 11/09/17 11/09/17 09:05 10:04 10:04 WBC 8.6 RBC 4.23 Hgb 12.4 Hct 36.7 MCV 86.8 MCH 29.3 MCHC 33.7 RDW 15.3 H Plt Count 224 MPV 9.8 Neut % (Auto) 49.9 L Lymph % (Auto) 39.8 [place] % (Auto) 7.2 Eos % (Auto) 1.7 Baso % (Auto) 1.4 Neut # (Auto) 4.3 Lymph # (Auto) 3.4 [place] # (Auto) 0.6 Eos # (Auto) 0.2 Baso # (Auto) 0.1 Sodium Potassium Chloride Carbon Dioxide Anion Gap BUN Creatinine Est GFR ( Amer) Est GFR (Non-Af Amer) POC Glucose (mg/dL) 132 H Random Glucose Calcium Total Bilirubin AST ALT Alkaline Phosphatase Total Creatine Kinase Troponin I NT-Pro-B Natriuret Pep Total Protein Albumin Globulin Albumin/Globulin Ratio Lipase Urine Color Yellow Urine Clarity Clear Urine pH 6.0 Ur Specific [place] 1.002 L Urine Protein Negative Urine Glucose (UA) Normal Urine Ketones Negative Urine Blood Negative Urine Nitrate Negative Urine Bilirubin Negative Urine Urobilinogen Normal Ur Leukocyte Esterase Neg 11/09/17 11/09/17 10:04 17:20 WBC RBC Hgb Hct MCV MCH MCHC RDW Plt Count MPV Neut % (Auto) Lymph % (Auto) [place] % (Auto) Eos % (Auto) Baso % (Auto) Neut # (Auto) Lymph # (Auto) [place] # (Auto) Eos # (Auto) Baso # (Auto) Sodium 135 Potassium 3.1 L Chloride 98 Carbon Dioxide 27 Anion Gap 13 BUN 11 Creatinine 0.6 L Est GFR ( Amer) > 60 Est GFR (Non-Af Amer) > 60 POC Glucose (mg/dL) Random Glucose 118 H Calcium 9.4 Total Bilirubin 0.6 AST 37 H ALT 42 Alkaline Phosphatase 60 Total Creatine Kinase 53 Troponin I < 0.0120 NT-Pro-B Natriuret Pep 23.8 Total Protein 7.2 Albumin 3.7 Globulin 3.5 Albumin/Globulin Ratio 1.0 Lipase 128 Urine Color Urine Clarity Urine pH Ur Specific [place] Urine Protein Urine Glucose (UA) Urine Ketones Urine Blood Urine Nitrate Urine Bilirubin Urine Urobilinogen Ur Leukocyte Esterase Assessment & Plan (1) Abdominal pain Status: Acute (2) Anxiety Status: Acute (3) Back pain Status: Acute (4) COPD (chronic obstructive pulmonary disease) Status: Acute Priority: High (5) Chest discomfort Status: Acute
[2017-11-09 17:51] LABS: CK-MB 0.73 ng/mL (0.0-3.38)
[2017-11-10 08:59] LABS: BASO # 0.1 K/uL (0.0-0.2); BASO % 1.1 % (0.0-2.0); EOS # 0.3 K/uL (0.0-0.7); EOS % 3.4 % (0.0-4.0); HEMOGLOBIN 13.8 g/dL (11.0-16.0); LYMPH # 4.5 K/uL (1.0-4.3); MEAN CELL VOLUME 86.3 fL (81.0-99.0); MEAN CORPUSCULAR HEMOGLOBIN 29.1 pg (27.0-31.0); MEAN CORPUSCULAR HGB CONC 33.7 g/dL (33.0-37.0); MEAN PLATELET VOLUME 9.5 fL (7.2-11.7); MONO # 0.6 K/uL (0.0-0.8); MONO % 6.8 % (0.0-10.0); NEUT # 3.2 K/uL (1.8-7.0); NEUT % 36.7 % (50.0-75.0); RBC 4.73 Mil/uL (3.80-5.20); RED CELL DISTRIBUTION WIDTH 15.7 % (11.5-14.5); WHITE BLOOD COUNT 8.7 K/uL (4.8-10.8)
[2017-11-10 09:11] LABS: ALT/SGPT 41 U/L (9-52); AST/SGOT 51 U/L (14-36); BLOOD UREA NITROGEN 15 mg/dL (7-17); CALCIUM 9.8 mg/dl (8.6-10.4); GFR AFRICAN-AMERICAN > 60; GFR NON-AFRICAN AMERICAN > 60
[2017-11-10] MEDS: Pantoprazole 20 mg EC Tab PO SCH (09:45)
[2017-11-10] MEDS: Enoxaparin 40 mg Syringe SC SCH (09:45)
[2017-11-10] MEDS: Aluminum Hydroxide/Magnesium Hydroxide Susp (30 mL) PO SCH ×2 (09:45→17:58)
[2017-11-10] MEDS: Oxycodone/Acetaminophen 5/325 mg Tab PO PRN ×3 (14:16→23:40)
[2017-11-11 07:20] LABS: PROTHROMBIN TIME 11.6 SECONDS (9.7-12.2)
[2017-11-11] MEDS: Aluminum Hydroxide/Magnesium Hydroxide Susp (30 mL) PO SCH ×3 (09:12→18:45)
[2017-11-11] MEDS: Enoxaparin 40 mg Syringe SC SCH (09:12)
[2017-11-11] MEDS: Pantoprazole 20 mg EC Tab PO SCH (09:13)
[2017-11-11] MEDS: Oxycodone/Acetaminophen 5/325 mg Tab PO PRN (14:49)
[2017-11-11] MEDS ORDERED: Iodixanol 320 mg/ml 150 ml Bottle IV ONE (18:07)
--- NOTE | 2017-11-11 22:30 | CT ---
EXAM: CT Angiography Chest With Intravenous Contrast EXAM DATE/TIME: 11/11/2017 5:15 PM CLINICAL HISTORY: 62 years old, female; Signs and symptoms; Shortness of breath; Additional info: R/O pe TECHNIQUE: Axial computed tomographic angiography images of the chest with intravenous contrast using pulmonary embolism protocol. All CT scans at this facility use one or more dose reduction techniques, viz.: automated exposure control; ma/kV adjustment per patient size (including targeted exams where dose is matched to indication; i.e. head); or iterative reconstruction technique. MIP reconstructed images were created and reviewed. Coronal and sagittal reformatted images were created and reviewed. CONTRAST: 100 mL of visipaque 320 administered intravenously. COMPARISON: CT - CHEST W/O CONTRAST 2016-11-08 21:05 FINDINGS: Heart, aorta and Pulmonary arteries: Heart size is normal.There is trace fluid in pericardial recesses. Aorta is normal in caliber. There are vascular calcifications. There is partial calcification of a left lower lobe pulmonary artery, unchanged. There is partial calcification of a right lower lobe pulmonary artery, unchanged. No flow peripheral to the calcification. There are no acute pulmonary emboli Lungs and pleural spaces: Trachea and main bronchi are patent. There are bilateral centrilobular emphysematous changes. There is dependent atelectasis at both lung bases. There is no lobar or segmental consolidation. There are no effusions. There is scarring in the middle lobe. There are small calcifications in both lower lobes. Mediastinum: Esophagus is unremarkable. There is shotty mediastinal nodes. There are no pathologically enlarged hilar nodes. Thyroid: Thyroid is not optimally demonstrated. Bones/joints: There are no acute osseous abnormalities. There is minimal spondylosis Soft tissues: unremarkable Upper abdomen: There are no acute abnormalities in the visualized portion of the abdomen. Gallbladder is absent. There are clips in the left upper quadrant. There is a splenule in the left upper quadrant. IMPRESSION: No acute pulmonary embolus; old focal calcification in a right lower lobe and left lower lobe pulmonary artery without without peripheral flow suggests remote embolic event; normal heart size, no aortic aneurysm; emphysema and
--- NOTE | 2017-11-11 23:31 | CP.PCM.PN ---
Subjective - Date & Time of Evaluation Date of Evaluation: 11/10/17 Time of Evaluation: 18:00 - Subjective Subjective: pt has decreased chest pain, waiting for cardiology Objective - Vital Signs/Intake and Output Vital Signs (last 24 hours): Temp Pulse Resp BP Pulse Ox 98.2 F 61 20 106/66 95 11/11/17 16:45 11/11/17 16:45 11/11/17 16:45 11/11/17 16:45 11/11/17 16:45 - Medications Medications: Current Medications Al Hydrox/Mg Hydrox/Simethicone (Maalox 30 Ml) 30 ml PO TID [facility] Last Admin: 11/11/17 18:45 Dose: 30 ml Alprazolam (Xanax) 0.5 mg PO BID PRN PRN Reason: Anxiety Last Admin: 11/11/17 22:06 Dose: 0.5 mg Amlodipine Besylate (Norvasc) 10 mg PO DAILY [facility] Last Admin: 11/11/17 09:13 Dose: 10 mg Aspirin (Aspirin Chewable) 81 mg PO DAILY [facility] Last Admin: 11/11/17 09:12 Dose: 81 mg Clonidine HCl (Catapres) 0.1 mg PO BID [facility] Last Admin: 11/11/17 18:44 Dose: 0.1 mg Dicyclomine HCl (Bentyl) 20 mg PO QID [facility] Last Admin: 11/11/17 22:03 Dose: 20 mg Enoxaparin Sodium (Lovenox) 40 mg SC DAILY [facility] Last Admin: 11/11/17 09:12 Dose: 40 mg Gabapentin (Neurontin) 300 mg PO BID [facility] Last Admin: 11/11/17 18:44 Dose: 300 mg Losartan Potassium (Cozaar) 50 mg PO DAILY [facility] Last Admin: 11/11/17 09:13 Dose: 50 mg Metformin HCl (Glucophage) 500 mg PO BID [facility] Last Admin: 11/11/17 18:45 Dose: Not Given Nicotine (Nicoderm Cq) 2 patch TD DAILY [facility] Last Admin: 11/11/17 09:13 Dose: 2 patch Oxycodone/Acetaminophen (Percocet 5/325 Mg Tab) 1 tab PO Q4H PRN PRN Reason: Pain, moderate (4-7) Stop: 11/13/17 13:52 Last Admin: 11/11/17 14:49 Dose: 1 tab Pantoprazole Sodium (Protonix Ec Tab) 20 mg PO DAILY [facility] Last Admin: 11/11/17 09:13 Dose: 20 mg Rosuvastatin Calcium (Crestor) 10 mg PO [facility] Last Admin: 11/11/17 22:03 Dose: 10 mg - Labs Labs: 11/10/17 08:44 11/10/17 08:44 PT 11.6 SECONDS (9.7-12.2) 11/11/17 07:05 INR 1.0 11/11/17 07:05 APTT 29 SECONDS (21-34) 11/11/17 07:05 Assessment and Plan (1) COPD (chronic obstructive pulmonary disease) Status: Acute (2) Chest pain Assessment & Plan: rule out Mi await for cardiology eval Status: Acute
--- NOTE | 2017-11-11 23:33 | CP.PCM.PN ---
Subjective - Date & Time of Evaluation Date of Evaluation: 11/11/17 Time of Evaluation: 18:00 - Subjective Subjective: Pt is not feeling well,is nauseous, c/o cramping, epigastric pain pain Objective - Vital Signs/Intake and Output Vital Signs (last 24 hours): Temp Pulse Resp BP Pulse Ox 98.2 F 61 20 106/66 95 11/11/17 16:45 11/11/17 16:45 11/11/17 16:45 11/11/17 16:45 11/11/17 16:45 - Medications Medications: Current Medications Al Hydrox/Mg Hydrox/Simethicone (Maalox 30 Ml) 30 ml PO TID [facility] Last Admin: 11/11/17 18:45 Dose: 30 ml Alprazolam (Xanax) 0.5 mg PO BID PRN PRN Reason: Anxiety Last Admin: 11/11/17 22:06 Dose: 0.5 mg Amlodipine Besylate (Norvasc) 10 mg PO DAILY [facility] Last Admin: 11/11/17 09:13 Dose: 10 mg Aspirin (Aspirin Chewable) 81 mg PO DAILY [facility] Last Admin: 11/11/17 09:12 Dose: 81 mg Clonidine HCl (Catapres) 0.1 mg PO BID [facility] Last Admin: 11/11/17 18:44 Dose: 0.1 mg Dicyclomine HCl (Bentyl) 20 mg PO QID [facility] Last Admin: 11/11/17 22:03 Dose: 20 mg Enoxaparin Sodium (Lovenox) 40 mg SC DAILY [facility] Last Admin: 11/11/17 09:12 Dose: 40 mg Gabapentin (Neurontin) 300 mg PO BID [facility] Last Admin: 11/11/17 18:44 Dose: 300 mg Losartan Potassium (Cozaar) 50 mg PO DAILY [facility] Last Admin: 11/11/17 09:13 Dose: 50 mg Metformin HCl (Glucophage) 500 mg PO BID [facility] Last Admin: 11/11/17 18:45 Dose: Not Given Nicotine (Nicoderm Cq) 2 patch TD DAILY [facility] Last Admin: 11/11/17 09:13 Dose: 2 patch Oxycodone/Acetaminophen (Percocet 5/325 Mg Tab) 1 tab PO Q4H PRN PRN Reason: Pain, moderate (4-7) Stop: 11/13/17 13:52 Last Admin: 11/11/17 14:49 Dose: 1 tab Pantoprazole Sodium (Protonix Ec Tab) 20 mg PO DAILY [facility] Last Admin: 11/11/17 09:13 Dose: 20 mg Rosuvastatin Calcium (Crestor) 10 mg PO HS [facility] Last Admin: 11/11/17 22:03 Dose: 10 mg - Labs Labs: 11/10/17 08:44 11/10/17 08:44 PT 11.6 SECONDS (9.7-12.2) 11/11/17 07:05 INR 1.0 11/11/17 07:05 APTT 29 SECONDS (21-34) 11/11/17 07:05 - Constitutional Appears: In Acute Distress - Head Exam Head Exam: ATRAUMATIC, NORMAL INSPECTION, NORMOCEPHALIC - Eye Exam Eye Exam: EOMI, Normal appearance, PERRL Pupil Exam: NORMAL ACCOMODATION, PERRL - Respiratory Exam Respiratory Exam: Clear to Ausculation Bilateral, NORMAL BREATHING PATTERN - Cardiovascular Exam Cardiovascular Exam: REGULAR RHYTHM, +S1, +S2. absent: Murmur - GI/Abdominal Exam GI & Abdominal Exam: Tenderness - Rectal Exam Rectal Exam: Deferred Assessment and Plan (1) Abdominal pain Status: Acute (2) Anxiety Status: Acute (3) COPD (chronic obstructive pulmonary disease) Status: Acute (4) DM2 (diabetes mellitus, type 2) Status: Chronic (5) Hypertension Status: Chronic
--- NOTE | 2017-11-12 06:47 | CON ---
DATE: REASON FOR CONSULTATION: Shortness of breath. HISTORY: The patient is a 62 years old female who has a history of hypertension and hyperlipidemia, who presented because of shortness of breath. The patient denies any productive cough or fever or chills. The patient is unaware of any prior cardiac history other than history of hypertension. She denies any retrosternal chest pain. SOCIAL HISTORY: The patient is a smoker. She is a nondrinker. REVIEW OF SYSTEMS: No fever or chills. The patient did report abdominal discomfort. The patient also reports imbalance for which she uses a walking cane for support. MEDICATIONS: Aspirin 81 mg once a day, clonidine 0.1 mg twice a day, Cozaar 50 mg once a day, Crestor 10 mg once a day, metformin 500 mg twice a day, Lovenox 40 mg once a day, gabapentin 300 mg twice a day, Nicoderm patch, Protonix 20 mg once a day, Percocet one tablet q.4 hours p.r.n., Norvasc 10 mg once a day. PHYSICAL EXAMINATION: GENERAL: The patient is a middle-aged male, who does not appear to be in any acute distress. VITAL SIGNS: Blood pressure 106/66, heart rate 61, temperature 98.2, respirations 20. HEENT: Normocephalic. NECK: No JVD. CHEST: Minimal rhonchi. HEART: S1, S2 regular. EXTREMITIES: No edema. No calf tenderness. LABORATORIES: SMA-7 is within normal limits except for creatinine of 0.6. Initial potassium on admission was 3.1, two sets of troponins are negative. Lipase level is within normal limits. D-dimer was slightly elevated to 158. Hemoglobin and hematocrit, white count and platelet count are within normal limits. EKG revealed sinus rhythm at rate of 83, minimal voltage criteria for LVH. Echocardiographic study performed on 11/30/2016 revealed normal ejection fraction, mild to moderate mitral insufficiency, no pulmonary hypertension. A CT scan without contrast performed one month ago revealed no acute intracranial hemorrhage, minor chronic white matter ischemic changes, previously described elliptical shaped soft tissue mass within the premedullary anterior prepontine subarachnoid space which was seen extending more to the left side on prior CT scan and MRI, not appreciated on this exam due to poor patient positioning. ASSESSMENT: 1. Shortness of breath, rule out exacerbation of chronic obstructive lung disease. 2. Rule out pulmonary embolus. 3. Hypertension and diabetes mellitus. RECOMMENDATIONS: Continue current medical management. Obtain chest CT angio. Rule out pulmonary embolus. Obtain pulmonary function tests. Lucas Turner MD
[2017-11-12] MEDS: Aluminum Hydroxide/Magnesium Hydroxide Susp (30 mL) PO SCH ×3 (09:33→17:11)
[2017-11-12] MEDS: Enoxaparin 40 mg Syringe SC SCH (09:33)
[2017-11-12] MEDS: Pantoprazole 20 mg EC Tab PO SCH ×2 (09:34→17:10)
[2017-11-12] MEDS ORDERED: Propofol 10 mg/ml Inj (20 ML) ONE (12:03)
[2017-11-12] MEDS ORDERED: Midazolam 2 MG/2 ML VIAL ONE (12:03)
[2017-11-12] MEDS ORDERED: Lidocaine Hydrochloride 5 ML INJ ONE (12:06)
[2017-11-12] MEDS: Oxycodone/Acetaminophen 5/325 mg Tab PO PRN ×2 (13:58→18:36)
--- NOTE | 2017-11-12 21:37 | PN ---
DATE: SUBJECTIVE: The patient's shortness of breath has improved. No chest pain. PHYSICAL EXAMINATION VITAL SIGNS: Blood pressure 104/55, heart rate 50, temperature 96.8, respirations 14. HEENT: Normocephalic. CHEST: Clear. HEART: Heart sounds regular. EXTREMITIES: No edema. LABORATORIES: Today's blood sugars are [address] angio, no acute pulmonary embolus, old focal the right lower lobe and left lower lobe pulmonary artery without peripheral flow suggest a remote embolic event. ASSESSMENT: 1. Question of remote pulmonary embolus as per the CT angio conclusion. 2. Uncontrolled diabetes mellitus. 3. Hiatus hernia on today's esophagogastroduodenoscopy. RECOMMENDATIONS: Continue current aspirin, clonidine, Cozaar, Crestor. Prophylactic subcutaneous Lovenox can be resumed after endoscopy. Obtain venous Doppler lower extremities. Lucas Turner MD
--- NOTE | 2017-11-12 23:24 | CP.PCM.PN ---
Subjective - Date & Time of Evaluation Date of Evaluation: 11/12/17 Time of Evaluation: 20:20 - Subjective Subjective: PT SEEN AND EXAMINED AT BEDSIDE, SHE IS ON MEDICAL MANAGMENT Objective - Vital Signs/Intake and Output Vital Signs (last 24 hours): Temp Pulse Resp BP Pulse Ox 97.9 F 68 20 114/68 97 11/12/17 16:48 11/12/17 16:48 11/12/17 16:48 11/12/17 16:48 11/12/17 16:48 Intake and Output: 11/12/17 11/13/17 18:59 06:59 Intake Total 350 Balance 350 - Medications Medications: Current Medications Al Hydrox/Mg Hydrox/Simethicone (Maalox 30 Ml) 30 ml PO TID [facility] Last Admin: 11/12/17 17:11 Dose: 30 ml Alprazolam (Xanax) 0.5 mg PO BID PRN PRN Reason: Anxiety Last Admin: 11/12/17 21:57 Dose: 0.5 mg Amlodipine Besylate (Norvasc) 10 mg PO DAILY [facility] Last Admin: 11/12/17 09:33 Dose: Not Given Aspirin (Aspirin Chewable) 81 mg PO DAILY [facility] Last Admin: 11/12/17 09:30 Dose: Not Given Clonidine HCl (Catapres) 0.1 mg PO BID [facility] Last Admin: 11/12/17 18:36 Dose: 0.1 mg Dicyclomine HCl (Bentyl) 20 mg PO QID [facility] Last Admin: 11/12/17 21:55 Dose: 20 mg Enoxaparin Sodium (Lovenox) 40 mg SC DAILY [facility] Last Admin: 11/12/17 09:33 Dose: Not Given Gabapentin (Neurontin) 300 mg PO BID [facility] Last Admin: 11/12/17 18:36 Dose: 300 mg Losartan Potassium (Cozaar) 50 mg PO DAILY [facility] Last Admin: 11/12/17 09:30 Dose: Not Given Metformin HCl (Glucophage) 500 mg PO BID [facility] Last Admin: 11/12/17 09:31 Dose: Not Given Nicotine (Nicoderm Cq) 2 patch TD DAILY [facility] Last Admin: 11/12/17 09:57 Dose: 2 patch Oxycodone/Acetaminophen (Percocet 5/325 Mg Tab) 1 tab PO Q4H PRN PRN Reason: Pain, moderate (4-7) Stop: 11/13/17 13:52 Last Admin: 11/12/17 18:36 Dose: 1 tab Pantoprazole Sodium (Protonix Ec Tab) 20 mg PO DAILY [facility] Last Admin: 11/12/17 17:10 Dose: 20 mg Rosuvastatin Calcium (Crestor) 10 mg PO HS [facility] Last Admin: 11/12/17 21:55 Dose: 10 mg - Labs Labs: 11/10/17 08:44 11/10/17 08:44 PT 11.6 SECONDS (9.7-12.2) 11/11/17 07:05 INR 1.0 11/11/17 07:05 APTT 29 SECONDS (21-34) 11/11/17 07:05 Assessment and Plan (1) Abdominal pain Status: Acute (2) Anxiety Status: Acute (3) COPD (chronic obstructive pulmonary disease) Status: Acute (4) DM2 (diabetes mellitus, type 2) Status: Chronic (5) Hypertension Status: Chronic
[2017-11-13] MEDS: Pantoprazole 20 mg EC Tab PO SCH (09:46)
[2017-11-13] MEDS: Aluminum Hydroxide/Magnesium Hydroxide Susp (30 mL) PO SCH ×3 (09:46→17:39)
[2017-11-13] MEDS: Oxycodone/Acetaminophen 5/325 mg Tab PO PRN ×3 (10:12→19:17)
--- NOTE | 2017-11-13 10:39 | VASCLAB ---
PROCEDURE: Lower Extremity Venous Duplex Exam. HISTORY: r/o DVT PRIORS: None. TECHNIQUE: Bilateral common femoral, femoral, popliteal and posterior tibial, peroneal and great saphenous veins were evaluated. Flow was assessed with color Doppler, compressibility, assessment of phasic flow and augmentation response. Report prepared by neurology technologist. FINDINGS: RIGHT: 1. Common Femoral Vein: 1.1. Compressibility - Fully compressible: Thrombus - None : Flow - Phasic: Augmentation -Normal: Reflux - None. 2. Femoral Vein: 2.1. Compressibility - Fully compressible: Thrombus - None : Flow - Phasic: Augmentation -Normal: Reflux - None. 3. Popliteal Vein: 3.1. Compressibility - Fully compressible: Thrombus - None : Flow - Phasic: Augmentation -Normal: Reflux - None. 4. Posterior Tibial Vein: 4.1. Compressibility - Fully compressible: Thrombus - None: Flow - Phasic: Augmentation -Normal: Reflux - None. 5. Peroneal Vein: 5.1. Compressibility - Fully compressible: Thrombus - None: Flow - Phasic: Augmentation -Normal: Reflux - None. 6. Great Saphenous Vein: 6.1. Compressibility - Fully compressible: Thrombus - None: Flow - Phasic: Augmentation - Normal: Reflux - Mild 1.88s LEFT: 1. Common Femoral Vein: 1.1. Compressibility - Fully compressible: Thrombus - None: Flow - Phasic: Augmentation -Normal: Reflux - None. 2. Femoral Vein: 2.1. Compressibility - Fully compressible: Thrombus - None: Flow - Phasic: Augmentation -Normal: Reflux - None. 3. Popliteal Vein: 3.1. Compressibility - Fully compressible: Thrombus - None : Flow - Phasic: Augmentation -Normal: Reflux - None. 4. Posterior Tibial Vein: 4.1. Compressibility - Fully compressible: Thrombus - None: Flow - Phasic: Augmentation -Normal: Reflux - None. 5. Peroneal Vein: 5.1. Compressibility - Fully compressible: Thrombus - None: Flow - Phasic: Augmentation -Normal: Reflux - None. 6. Great Saphenous Vein: 6.1. Compressibility - Fully compressible: Thrombus - None: Flow - Phasic: Augmentation - Normal: Reflux - None. OTHER FINDINGS: Right: None significant. Left: None significant. IMPRESSION: Right: No evidence of deep or superficial vein thrombosis of the right lower extremity. Mild valvular incompetence noted of the right great saphenous vein. Left: No evidence of deep or superficial vein thrombosis of the left lower extremity. Normal valve function noted of the left side.
[2017-11-13 11:08] LABS: BASO # 0.1 K/uL (0.0-0.2); BASO % 1.2 % (0.0-2.0); EOS # 0.3 K/uL (0.0-0.7); EOS % 4.9 % (0.0-4.0); HEMOGLOBIN 11.9 g/dL (11.0-16.0); LYMPH % 60.6 % (20.0-40.0); MEAN CORPUSCULAR HEMOGLOBIN 28.9 pg (27.0-31.0); MEAN CORPUSCULAR HGB CONC 32.9 g/dL (33.0-37.0); MEAN PLATELET VOLUME 9.9 fL (7.2-11.7); MONO # 0.5 K/uL (0.0-0.8); MONO % 7.9 % (0.0-10.0); NEUT # 1.7 K/uL (1.8-7.0); NEUT % 25.4 % (50.0-75.0); NRBC % 0.2 % (0.0-2.0); RBC 4.1 Mil/uL (3.80-5.20); RED CELL DISTRIBUTION WIDTH 16.1 % (11.5-14.5); WHITE BLOOD COUNT 6.6 K/uL (4.8-10.8)
[2017-11-13 11:25] LABS: ALB/GLOB RATIO 1.1 (1.0-2.1); ALBUMIN 3.2 g/dL (3.5-5.0); ALT/SGPT 40 U/L (9-52); AST/SGOT 39 U/L (14-36); BLOOD UREA NITROGEN 13 mg/dL (7-17); CALCIUM 8.8 mg/dl (8.6-10.4); GFR AFRICAN-AMERICAN > 60; GFR NON-AFRICAN AMERICAN > 60
--- NOTE | 2017-11-13 16:59 | PN ---
DATE: LOCATION: [facility], bed B. SUBJECTIVE: This 62-year-old female seen and examined in rounds without significant clinical changes or reported active bleeding. The entire chart is reviewed including but not limited to the most recent lab and radiology study results, current and the previous medication list, current and the previous medical events, and the patient is seen by the Cardiology consult, Dr. Turner. The patient denied any nausea or vomiting this morning. No chest pain or palpitation reported. The most recent lab results showed normal CBC, with blood glucose 136, AST 39, low albumin, low total protein. PHYSICAL EXAMINATION GENERAL: A 62-year-old female, afebrile, with pulse of 62, respiratory rate 20 to 22, blood pressure 140/80. HEENT: Showed pale dry oral mucous membranes. Nonicteric sclerae. LUNGS: Few scattered crepitation. Decreased air entry at bases. HEART: Positive S1 and S2. ABDOMEN: Soft with mild generalized tenderness. No mass or organomegaly. No rebound tenderness or guarding. RECTAL: The patient refused. EXTREMITIES: Without significant edema, clubbing, or cyanosis. IMPRESSION: 1. Peptic ulcer disease. 2. Chronic obstructive pulmonary disease. 3. Depression. 4. Reported dementia. 5. Osteoarthritis. 6. Hypertension with hyperlipidemia by history. SUGGESTION: 1. Agree with your plan. 2. Guaiac all the stools daily x3. 3. Follow up cancer markers. 4. For cardiology workup and no further aggressive GI workup in the mean time until the patient is more stable clinically. Clifford Gandara MD
--- NOTE | 2017-11-13 20:29 | PN ---
DATE: SUBJECTIVE: The patient denies chest pain. PHYSICAL EXAMINATION: VITAL SIGNS: Blood pressure 145/83, heart rate 60, temperature 97.4, respirations 18. HEENT: Normocephalic. CHEST: Clear. HEART: S1 and S2, regular. EXTREMITIES: No edema. LABORATORY DATA: Venous Doppler of lower extremity: Preliminary report, no evidence of DVT. Today's SMA-7 is within normal limits. Today's hemoglobin, hematocrit, white count, and platelet count are within normal limits. ASSESSMENT AND PLAN: 1. Shortness of breath on admission, which has improved. 2. Chronic obstructive lung disease. 3. Hypertension. 4. Diabetes mellitus. 5. Anxiety. RECOMMENDATION: Continue current aspirin, clonidine, Cozaar, Crestor, subcutaneous Lovenox, amlodipine, Neurontin, and Xanax. No further cardiac workup is needed at this time. Lucas Turner MD
--- NOTE | 2017-11-13 22:44 | CP.PCM.PN ---
Subjective - Date & Time of Evaluation Date of Evaluation: 11/13/17 Time of Evaluation: 17:45 - Subjective Subjective: Pt seen & examined at bedside Objective - Vital Signs/Intake and Output Vital Signs (last 24 hours): Temp Pulse Resp BP Pulse Ox 98 F 57 L 20 119/75 95 11/13/17 16:16 11/13/17 17:44 11/13/17 16:16 11/13/17 17:44 11/13/17 16:16 Intake and Output: 11/13/17 11/14/17 18:59 06:59 Intake Total 400 Balance 400 - Medications Medications: Current Medications Al Hydrox/Mg Hydrox/Simethicone (Maalox 30 Ml) 30 ml PO TID [facility] Last Admin: 11/13/17 17:39 Dose: 30 ml Alprazolam (Xanax) 0.5 mg PO BID PRN PRN Reason: Anxiety Last Admin: 11/13/17 22:08 Dose: 0.5 mg Amlodipine Besylate (Norvasc) 5 mg PO DAILY [facility] Aspirin (Aspirin Chewable) 81 mg PO DAILY [facility] Last Admin: 11/13/17 09:46 Dose: 81 mg Enoxaparin Sodium (Lovenox) 40 mg SC DAILY [facility] Last Admin: 11/12/17 09:33 Dose: Not Given Gabapentin (Neurontin) 300 mg PO BID [facility] Last Admin: 11/13/17 17:39 Dose: 300 mg Losartan Potassium (Cozaar) 100 mg PO DAILY [facility] Metformin HCl (Glucophage) 500 mg PO BID [facility] Last Admin: 11/12/17 09:31 Dose: Not Given Nicotine (Nicoderm Cq) 1 patch TD DAILY [facility] Oxycodone/Acetaminophen (Percocet 5/325 Mg Tab) 1 tab PO Q4H PRN PRN Reason: pain Stop: 11/16/17 14:11 Last Admin: 11/13/17 19:17 Dose: 1 tab Pantoprazole Sodium (Protonix Ec Tab) 20 mg PO DAILY [facility] Last Admin: 11/13/17 09:46 Dose: 20 mg Rosuvastatin Calcium (Crestor) 10 mg PO HS [facility] Last Admin: 11/13/17 22:05 Dose: 10 mg - Labs Labs: 11/13/17 11:01 11/13/17 11:01 PT 11.6 SECONDS (9.7-12.2) 11/11/17 07:05 INR 1.0 11/11/17 07:05 APTT 29 SECONDS (21-34) 11/11/17 07:05 Assessment and Plan (1) Abdominal pain Status: Acute (2) Anxiety Status: Acute (3) COPD (chronic obstructive pulmonary disease) Status: Acute (4) DM2 (diabetes mellitus, type 2) Status: Chronic (5) Hypertension Status: Chronic
[2017-11-14] MEDS: Oxycodone/Acetaminophen 5/325 mg Tab PO PRN ×2 (03:01→09:42)
[2017-11-14 07:52] VITALS: BP 128/74; PULSE 55; RESP 18; TEMP 98; O2SAT 99
--- NOTE | 2017-11-14 08:26 | CON ---
DATE: 11/11/2017 LOCATION: 568, bed B. This is from Dr. Gandara to Dr. Hussein Bah. I was called for GI consultation by the admitting medical team. The patient is seen and fully examined on 11/11/[address] Bah. The entire chart is reviewed including, but not limited to, the most recent lab and radiological results, current and the previous medication list, current and the previous medical events, allergy to medication list as well as all the available current and previous medical records. HISTORY OF PRESENT ILLNESS: This is a 62 years old female, known case for me, was admitted to the hospital through the emergency room with the main complaint of intermittent period of shortness of breath with mild chest discomfort, with questionable left-sided chest pain into the left shoulder. No reported chills or fever. No palpitation but dyspepsia with recurrent episode of nausea and the recent change of bowel movement habits. The patient was seen and evaluated by the skin care consultant. Then subsequently, I was called for GI evaluation for possible noncardiac chest pain and recurrent peptic ulcer disease. PAST MEDICAL HISTORY: Including but not limited to, 1. COPD. 2. Gastritis. 3. Hypertension. 4. Hyperlipidemia. 5. Severe anxiety syndrome with depression. 6. Questionable schizophrenia. 7. Seizure disorder by history. 8. Chronic lower back pain syndrome. 9. Status post cholecystectomy, appendectomy as well as spine surgery by history. 10. Last colonoscopy done over 5-1/2 years ago as per the record and upper endoscopy reported to be done in 01/2015. FAMILY HISTORY: Unknown. SOCIAL HISTORY: Positive for cigarette smoking and alcohol intake. ALLERGY TO MEDICATIONS: UNCLEAR. LABORATORY DATA: After being admitted to the hospital initial blood workup showed normal hemoglobin and hematocrit but with reported subsequent mild drop with blood glucose level 118, potassium 3.1. Chest x-ray reported to be negative for any active disease. PHYSICAL EXAMINATION: GENERAL: A 62-year-old female appears to be awake, alert, and oriented; was complaining of mid epigastric pain and dyspepsia. VITAL SIGNS: The patient is afebrile with pulse of 64, respiratory rate of 20 to 22, and blood pressure 136/80. HEENT: Showed pale, dry oral mucoid membrane, nonicteric sclerae. LUNGS: Few scattered crepitation. Decreased air entry at bases. HEART: Positive S1 and S2. ABDOMEN: Soft with mid epigastric symptoms with mild abdominal distention. No mass or organomegaly. No rebound tenderness or guarding. RECTAL: Deferred due to the patient's clinical status. EXTREMITIES: With slight lower extremities edematous changes, no clubbing or cyanosis. NEUROLOGIC: No reported new neurological deficits, sensory, or motor. No new reported focal deficits. VASCULAR: Peripheral pulses are present bilaterally and positive but weak. IMPRESSION: 1. Exacerbation of peptic ulcer disease, to rule out gastric versus duodenal ulcer. 2. Anemia of unclear etiology, rule out upper versus lower gastrointestinal blood loss versus anemia secondary to chronic disease. 3. Multiple past medical history as mentioned above. 4. Electrolyte imbalance. 5. Further recommendation. SUGGESTIONS: 1. Agree with your plan. 2. Abdominal ultrasound with serum lipase and amylase level. 3. Zofran IV. 4. Proton pump inhibitors. 5. Upper endoscopy. 6. Guaiac on the stool daily x3. 7. Cancer markers with serum lipase and amylase level. 8. Adjust oral intake with no citrus, no seeds. 9. Further recommendation to follow up after upper endoscopy. 10. We will follow up closely with you. Thank you for letting me participate in your patient's case management. Clifford Gandara MD
[2017-11-14] MEDS: Pantoprazole 20 mg EC Tab PO SCH (09:41)
[2017-11-14] MEDS: Aluminum Hydroxide/Magnesium Hydroxide Susp (30 mL) PO SCH (09:43)
--- NOTE | 2017-11-14 10:39 | CP.PCM.PN ---
Subjective - Date & Time of Evaluation Date of Evaluation: 11/14/17 Time of Evaluation: 10:34 - Subjective Subjective: PATIENT WAS ADMITTED FOR CHEST PAIN; AAOX3; DENIES ANY SOB,NAUSEA OR VOMITING DENIES ANY CHEST PAIN NO SIGN OF DISTRESS NOTED Objective - Vital Signs/Intake and Output Vital Signs (last 24 hours): Temp Pulse Resp BP Pulse Ox 98.0 F 55 L 18 128/74 99 11/14/17 07:35 11/14/17 07:35 11/14/17 07:35 11/14/17 07:35 11/14/17 07:35 - Medications Medications: Current Medications Al Hydrox/Mg Hydrox/Simethicone (Maalox 30 Ml) 30 ml PO TID [facility] Last Admin: 11/14/17 09:43 Dose: 30 ml Alprazolam (Xanax) 0.5 mg PO BID PRN PRN Reason: Anxiety Last Admin: 11/13/17 22:08 Dose: 0.5 mg Amlodipine Besylate (Norvasc) 5 mg PO DAILY [facility] Last Admin: 11/14/17 09:40 Dose: 5 mg Aspirin (Aspirin Chewable) 81 mg PO DAILY [facility] Last Admin: 11/14/17 09:41 Dose: 81 mg Enoxaparin Sodium (Lovenox) 40 mg SC DAILY [facility] Last Admin: 11/12/17 09:33 Dose: Not Given Gabapentin (Neurontin) 300 mg PO BID [facility] Last Admin: 11/14/17 09:41 Dose: 300 mg Losartan Potassium (Cozaar) 100 mg PO DAILY [facility] Last Admin: 11/14/17 09:41 Dose: 100 mg Metformin HCl (Glucophage) 500 mg PO BID [facility] Last Admin: 11/12/17 09:31 Dose: Not Given Nicotine (Nicoderm Cq) 1 patch TD DAILY [facility] Last Admin: 11/14/17 09:41 Dose: 1 patch Oxycodone/Acetaminophen (Percocet 5/325 Mg Tab) 1 tab PO Q4H PRN PRN Reason: pain Stop: 11/16/17 14:11 Last Admin: 11/14/17 09:42 Dose: 1 tab Pantoprazole Sodium (Protonix Ec Tab) 20 mg PO DAILY [facility] Last Admin: 11/14/17 09:41 Dose: 20 mg Rosuvastatin Calcium (Crestor) 10 mg PO [facility] Last Admin: 11/13/17 22:05 Dose: 10 mg - Labs Labs: 11/13/17 11:01 11/13/17 11:01 PT 11.6 SECONDS (9.7-12.2) 11/11/17 07:05 INR 1.0 11/11/17 07:05 APTT 29 SECONDS (21-34) 11/11/17 07:05 Assessment and Plan - Assessment and Plan (Free Text) Assessment: PATIENT SEEN AND EXAMINED AT THE BEDSIDE TNI X2 IS NEGATIVE DDIMER WAS ELEVATED CTA IS NEG FOR PE VENOUS DOPPLER WAS NEG EGD WAS DONE SHOW GASTRITIS/HIATAL HERNIA/DUODENITIS DISCUSS WITH DR FLIIPE RODRIGUEZ CLEAR PATIENT FOR DC FOLLOW UP WITH DR DENT AT HIS OFFICE IN 1-2 WEEK ---CALL FOR APPOINTMENT FOLLOW UP DR BABCOCK AT HIS OFFICE --CALL FOR APPOINTMENT CONTINUE ALL YOUR HOME MEDICATION ORDER NEW PRESCRIPTION GIVEN ASPIRIN 81 MG BY MOUTH DAILY CRESTOR 10 MG BY MOUTH AT NIGHT ACTIVITY TOLERATED CALL DR DENT OR GO TO THE EMERGENCY ROOM IF SYMPTOMS RETURN OR WORSENING DISCUSS WITH PATIENT WHO AGREE AND VERBALIZED UNDERSTANDING
--- NOTE | 2017-11-14 16:21 | PN ---
DATE: LOCATION: [facility], bed B. SUBJECTIVE: This is a 62-year-old female seen and examined in rounds without significant clinical changes or reported active bleeding with less episode of nausea and vomiting. No chest pain or palpitations reported earlier this morning and cardiology workup is in process. No reported significant abdominal distention. The entire chart is reviewed including but not limited to the most recent lab and radiology study results, current and the previous medication list, current and the previous medical events. Further discussion with staff at length was performed. Today's lab show blood glucose level of 105. Rest of the lab results are still pending, but the most recent H and H was reported to be normal. Lower extremities duplex scan done, report was seen indicative with no evidence of deep vein thrombosis. PHYSICAL EXAMINATION: GENERAL: A 62-year-old female, awake, alert, and oriented. VITAL SIGNS: Afebrile with pulse of 58, respiratory rate 20 to 22, blood pressure 124/72. HEENT: Show pale dry oral mucous membranes. Nonicteric sclerae. LUNGS: Few scattered crepitation. Decreased air entry at bases. HEART: Positive S1 and S2. ABDOMEN: Soft. Bowel sounds are present. No mass or organomegaly. No rebound tenderness or guarding. EXTREMITIES: Without significant clubbing, cyanosis, or edema. NEUROLOGIC: No reported new neurological deficits, sensory or motor, no focal deficits. Official part of the report for gastric mucosa was negative for Helicobacter pylori infection. IMPRESSION: 1. Re-exacerbation of peptic ulcer disease. 2. Known history of chronic obstructive pulmonary disease. 3. Depression. 4. Mild dementia. 5. Osteoarthritis with hypertension and hyperlipidemia. 6. Noncardiac chest pain. SUGGESTIONS: 1. Continue current management. 2. Follow up with cancer markers. 3. After subsequent drop of hemoglobin and hematocrit, then colonoscopy to be scheduled that could be done as an outpatient. Clifford Gandara MD
--- NOTE | 2017-11-14 18:33 | CARD ---
APPROVED REPORT EKG Measurement Heart [id number] <Conclusion> Normal sinus rhythm Minimal voltage criteria for LVH, may be normal variant Borderline ECG
--- NOTE | 2017-11-14 22:56 | CP.PCM.DIS ---
Provider - Provider Date of Admission: 11/11/17 22:49 Attending physician: Hussein Bah MD Time Spent in preparation of Discharge (in minutes): 56 Diagnosis - Discharge Diagnosis (1) Abdominal pain Status: Acute (2) Anxiety Status: Acute (3) COPD (chronic obstructive pulmonary disease) Status: Acute Priority: High (4) DM2 (diabetes mellitus, type 2) Status: Chronic (5) Hypertension Status: Chronic Hospital Course - Lab Results Lab Results: Most Recent Lab Values WBC 6.6 K/uL (4.8-10.8) 11/13/17 11:01 RBC 4.10 Mil/uL (3.80-5.20) 11/13/17 11:01 Hgb 11.9 g/dL (11.0-16.0) 11/13/17 11:01 Hct 36.1 % (34.0-47.0) 11/13/17 11:01 MCV 88.0 fL (81.0-99.0) 11/13/17 11:01 MCH 28.9 pg (27.0-31.0) 11/13/17 11:01 MCHC 32.9 g/dL (33.0-37.0) L 11/13/17 11:01 RDW 16.1 % (11.5-14.5) H 11/13/17 11:01 Plt Count 223 K/uL (130-400) 11/13/17 11:01 MPV 9.9 fL (7.2-11.7) 11/13/17 11:01 Neut % (Auto) 25.4 % (50.0-75.0) L 11/13/17 11:01 Lymph % (Auto) 60.6 % (20.0-40.0) H 11/13/17 11:01 [place] % (Auto) 7.9 % (0.0-10.0) 11/13/17 11:01 Eos % (Auto) 4.9 % (0.0-4.0) H 11/13/17 11:01 Baso % (Auto) 1.2 % (0.0-2.0) 11/13/17 11:01 Neut # (Auto) 1.7 K/uL (1.8-7.0) L 11/13/17 11:01 Lymph # (Auto) 4.0 K/uL (1.0-4.3) 11/13/17 11:01 [place] # (Auto) 0.5 K/uL (0.0-0.8) 11/13/17 11:01 Eos # (Auto) 0.3 K/uL (0.0-0.7) 11/13/17 11:01 Baso # (Auto) 0.1 K/uL (0.0-0.2) 11/13/17 11:01 PT 11.6 SECONDS (9.7-12.2) 11/11/17 07: INR 1.0 11/11/17 07:05 APTT 29 SECONDS (21-34) 11/11/17 07:05 D-Dimer, Quantitative 258 ng/mlDDU (0-243) H 11/11/17 07:05 Sodium 144 mmol/L (132-148) 11/13/17 11:01 Potassium 4.4 mmol/L (3.6-5.2) 11/13/17 11:01 Chloride 107 mmol/L (98-107) 11/13/17 11:01 Carbon Dioxide 29 mmol/L (22-30) 11/13/17 11:01 Anion Gap 13 (10-20) 11/13/17 11:01 BUN 13 mg/dL (7-17) 11/13/17 11:01 Creatinine 0.7 mg/dL (0.7-1.2) 11/13/17 11:01 Est GFR ( Amer) > 60 11/13/17 11:01 Est GFR (Non-Af Amer) > 60 11/13/17 11:01 POC Glucose (mg/dL) 101 mg/dL (65-110) 11/14/17 11:10 Random Glucose 100 mg/dL (65-105) 11/13/17 11:01 Calcium 8.8 mg/dl (8.6-10.4) 11/13/17 11:01 Total Bilirubin 0.2 mg/dL (0.2-1.3) 11/13/17 11:01 AST 39 U/L (14-36) H D 11/13/17 11:01 ALT 40 U/L (9-52) 11/13/17 11:01 Alkaline Phosphatase 57 U/L (38-126) 11/13/17 11:01 Total Creatine Kinase 53 U/L (30-135) 11/09/17 17:20 CK-MB (Mass) 0.73 ng/mL (0.0-3.38) 11/09/17 17:20 Troponin I < 0.0120 ng/mL (0.00-0.120) 11/09/17 17:20 NT-Pro-B Natriuret Pep 23.8 pg/mL (0-900) 11/09/17 10:04 Total Protein 6.2 g/dL (6.3-8.3) L 11/13/17 11:01 Albumin 3.2 g/dL (3.5-5.0) L 11/13/17 11:01 Globulin 3.0 gm/dL (2.2-3.9) 11/13/17 11:01 Albumin/Globulin Ratio 1.1 (1.0-2.1) 11/13/17 11:01 Lipase 128 U/L (23-300) 11/09/17 10:04 Urine Color Yellow (YELLOW) 11/09/17 10:04 Urine Clarity Clear (Clear) 11/09/17 10:04 Urine pH 6.0 (5.0-8.0) 11/09/17 10:04 Ur Specific [place] 1.002 (1.003-1.030) L 11/09/17 10:04 Urine Protein Negative mg/dL (NEGATIVE) 11/09/17 10:04 Urine Glucose (UA) Normal mg/dL (Normal) 11/09/17 10:04 Urine Ketones Negative mg/dL (NEGATIVE) 11/09/17 10:04 Urine Blood Negative (NEGATIVE) 11/09/17 10:04 Urine Nitrate Negative (NEGATIVE) 11/09/17 10:04 Urine Bilirubin Negative (NEGATIVE) 11/09/17 10:04 Urine Urobilinogen Normal mg/dL (0.2-1.0) 11/09/17 10:04 Ur Leukocyte Esterase Neg Luis Manuel/uL (Negative) 11/09/17 10:04 - Hospital Course Hospital Course: PATIENT SEEN AND EXAMINED AT THE BEDSIDE , DENIES ANY CHEST PAIN ,MOST LIKELY CHEST PAIN WAS NON CARDIAC TNI X2 IS NEGATIVE DDIMER WAS ELEVATED CTA IS NEG FOR PE VENOUS DOPPLER WAS NEG EGD WAS DONE SHOW GASTRITIS/HIATAL HERNIA/DUODENITIS CLEAR PATIENT FOR DC FOLLOW UP WITH ME AT HIS OFFICE IN 1-2 WEEK ---CALL FOR APPOINTMENT FOLLOW UP DR RAMIREZ AT HIS OFFICE --CALL FOR APPOINTMENT CONTINUE ALL YOUR HOME MEDICATION ORDER NEW PRESCRIPTION GIVEN ASPIRIN 81 MG BY MOUTH DAILY CRESTOR 10 MG BY MOUTH AT NIGHT ACTIVITY TOLERATED CALL OR GO TO THE EMERGENCY ROOM IF SYMPTOMS RETURN OR WORSENING DISCUSS WITH PATIENT WHO AGREE AND VERBALIZED UNDERSTANDING Discharge Exam - Head Exam Head Exam: ATRAUMATIC, NORMAL INSPECTION, NORMOCEPHALIC - Eye Exam Eye Exam: EOMI, Normal appearance, PERRL Pupil Exam: NORMAL ACCOMODATION, PERRL - ENT Exam ENT Exam: Mucous Membranes Moist - Respiratory Exam Respiratory Exam: Decreased Breath Sounds, NORMAL BREATHING PATTERN - Cardiovascular Exam Cardiovascular Exam: REGULAR RHYTHM, +S1, +S2 - GI/Abdominal Exam GI & Abdominal Exam: Normal Bowel Sounds Discharge Plan - Discharge Medications Prescriptions: Aspirin [Aspirin Chewable] 81 mg PO DAILY 30 Days chew Rosuvastatin Calcium [Crestor] 10 mg PO HS 30 Days tab - Follow Up Plan Condition: FAIR Disposition: HOME/ ROUTINE Instructions: Type 2 Diabetes, High Blood Pressure in Adults, Chest Pain, Low Salt Diet, Aspirin, Rosuvastatin Additional Instructions: FOLLOW UP WITH DR BAH AT HIS OFFICE IN 1-2 WEEK ---CALL FOR APPOINTMENT FOLLOW UP DR RAMIREZ AT HIS OFFICE --CALL FOR APPOINTMENT CONTINUE ALL YOUR HOME MEDICATION ORDER NEW PRESCRIPTION GIVEN ASPIRIN 81 MG BY MOUTH DAILY CRESTOR 10 MG BY MOUTH AT NIGHT ACTIVITY TOLERATED CALL DR BAH OR GO TO THE EMERGENCY ROOM IF SYMPTOMS RETURN OR WORSENING Referrals: Clifford Ramirez [Staff Provider] - Lucas Turner MD [Staff Provider] - Hussein Bah MD [Staff Provider] -
== END 2017-11-14 13:00 | disposition home or self-care (01) | DRG 313 ==
LOC: C.ER 08:49 → C.9E 11:22 → C.5S 17:18 → OBSVTOIN 11-11 22:49
PROVIDERS: ADMIT Internal Medicine; ATTEND Internal Medicine
PROC: 0DB68ZX Excision of Stomach, Via Natural or Artificial Opening Endoscopic, Diagnostic (ICD-10-PCS; principal; 2017-11-12 13:00)
DX: R07.89 Other chest pain (principal); E11.65 Type 2 diabetes mellitus with hyperglycemia; F03.90 Unspecified dementia, unspecified severity, without behavioral disturbance, psychotic disturbance, mood disturbance, and anxiety; F32.9 Major depressive disorder, single episode, unspecified; D64.9 Anemia, unspecified; E78.5 Hyperlipidemia, unspecified; F17.210 Nicotine dependence, cigarettes, uncomplicated; F41.9 Anxiety disorder, unspecified; G40.909 Epilepsy, unspecified, not intractable, without status epilepticus; I10 Essential (primary) hypertension; K29.70 Gastritis, unspecified, without bleeding; K29.80 Duodenitis without bleeding; K44.9 Diaphragmatic hernia without obstruction or gangrene; Z86.711 Personal history of pulmonary embolism; J44.9 Chronic obstructive pulmonary disease, unspecified

== ENCOUNTER 2017-11-29 09:54 | Emergency (ER) | payer MEDICARE, OTHER ==
[2017-11-29 09:55] VITALS: BMI 27.8
[2017-11-29 10:18] VITALS: O2SAT 97
--- NOTE | 2017-11-29 10:33 | C.PDOC ---
History Of Present Illness 62 year old female presents to the ED for evaluation of intermittent abdominal pain that radiates to her back over the past several days. Patient also complains of dizziness associated with nausea for the past several days. Additional information limited secondary to patient being a poor historian. Time Seen by Provider: 11/29/17 10:18 Chief Complaint (Nursing): Abdominal Pain History Per: Patient History/Exam Limitations: other (poor historian ) Onset/Duration Of Symptoms: Intermittent Episodes Current Symptoms Are (Timing): Still Present Additional History Per: Patient Past Medical History Reviewed: Historical Data, Nursing Documentation, Vital Signs Vital Signs: Last Vital Signs Temp 98.5 F 11/29/17 14:05 Pulse 64 11/29/17 14:05 Resp 18 11/29/17 14:05 BP 171/93 H 11/29/17 14:05 Pulse Ox 97 11/30/17 17:30 - Medical History PMH: Anxiety, Arthritis, Asthma, Back Problems, COPD, Dementia, Depression, Emphysema, Gastritis, GERD, HTN, Hypercholesterolemia, Schizophrenia, Seizures, Chronic Pain (neck and back) Denies: Anemia, Diabetes, Hepatitis, HIV, Chronic Kidney Disease, Sexually Transmitted Disease Surgical History: Appendectomy, Back Surgery, Cholecystectomy Denies: Pacemaker - [facility] Procedures COLONOSCOPY (04/22/12) DETOXIFICATION SERVICES FOR SUBSTANCE ABUSE TREATMENT (08/28/17) ESOPHAGOGASTRODUODENOSCOPY [EGD] W/CLOSED BIOPSY (02/04/15) EXCISION OF STOMACH, ENDO, DIAGN (11/11/17) GROUP PSYCHOTHERAPY (11/08/16) INDIVIDUAL PSYCHOTHERAPY, COGNITIVE-BEHAVIORAL (11/08/16) INSERT INFUSION DEV IN R INT JUGULAR VEIN, PERC (11/11/16) INSERTION OF ENDOTRACHEAL AIRWAY INTO TRACHEA, VIA OPENING (11/11/16) RESPIRATORY VENTILATION, 24-96 CONSECUTIVE HOURS (11/11/16) Family History: States: Unknown Family Hx - Social History Hx Tobacco Use: Yes Hx Alcohol Use: No Hx Substance Use: No - Immunization History Hx Tetanus Toxoid Vaccination: Yes Hx Influenza Vaccination: Yes (06/2017) Hx Pneumococcal Vaccination: No Review Of Systems Gastrointestinal: Positive for: Nausea, Abdominal Pain Neurological: Positive for: Dizziness Physical Exam - Physical Exam Appears: Non-toxic, No Acute Distress Skin: Normal Color, Warm, Dry, No Rash Head: Atraumatic, Normacephalic Eye(s): bilateral: Normal Inspection Oral Mucosa: Moist Throat: No Erythema, No Exudate Neck: Normal ROM, Supple Chest: Symmetrical, No Deformity, No Tenderness Cardiovascular: Rhythm Regular, No Friction Rub, No Murmur Respiratory: Normal Breath Sounds, No Rales, No Rhonchi, No Wheezing Gastrointestinal/Abdominal: Soft, No Tenderness, No Guarding, No Rebound Extremity: Normal ROM, Capillary Refill (less than 2 seconds ) Neurological/Psych: Oriented x3, Normal Speech, Normal Cognition, Normal Cranial Nerves, Normal Motor, Normal Sensation Gait: Steady ED Course And Treatment - Laboratory Results Result Diagrams: 11/29/17 12:02 11/29/17 12:02 O2 Sat by Pulse Oximetry: 97 (on RA ) Pulse Ox Interpretation: Normal - Other Rad CXR X-Ray: Interpreted by Me, Viewed By Me, Read By Radiologist Interpretation: PROCEDURE: CHEST RADIOGRAPH, 1 VIEW. HISTORY: abd pain, weakness. COMPARISON: 09/09/2017. FINDINGS: LUNGS: Clear. PLEURA: No pneumothorax or pleural fluid seen.Biapical pleural parenchymal thickening noted. CARDIOVASCULAR: Normal. OSSEOUS STRUCTURES: No significant abnormalities. VISUALIZED UPPER ABDOMEN: Normal. OTHER FINDINGS: None. IMPRESSION: No focal airspace opacity. No significant interval change. Further imaging can be obtained if clinically indicated. - CT Scan/US CT Head Other Rad Studies (CT/US): Interpreted By Me, Read By Radiologist, Radiology Report Reviewed CT/US Interpretation: PROCEDURE: CT HEAD WITHOUT CONTRAST. HISTORY: weakness. COMPARISON: 11/08/2016. TECHNIQUE: Axial computed tomography images were obtained through the head/brain without intravenous contrast. Radiation dose: Total exam DLP = 858.7 mGy-cm. This CT exam was performed using one or more of the following dose reduction techniques: Automated exposure control, adjustment of the mA and/or kV according to patient size, and/ or use of iterative reconstruction technique. FINDINGS: HEMORRHAGE: No intracranial hemorrhage. BRAIN: No mass effect or edema. Stable generalized volume loss. Patchy and confluent hypodensities throughout the bilateral cerebral hemispheric white matter are most likely from chronic small vessel ischemic changes. Re- demonstration of high density extra-axial structure measuring approximately 1.7 x 9.5 x 1.1 centimeters in the left infra pontine cistern. VENTRICLES: Stable appearance of the ventricles. CALVARIUM: Unremarkable. PARANASAL SINUSES: Possible small polyp (partially visualized) involving the roof of the left maxillary sinus. MASTOID AIR CELLS: Unremarkable as visualized. No inflammatory changes. OTHER FINDINGS: None. IMPRESSION: No CT evidence of acute intracranial hemorrhage or acute territorial infarct. Acute infarction may be CT occult within first 24 hours. If a focal deficit persists, consider followup CT or MRI for further evaluation. Re- demonstration of high density extra-axial structure measuring approximately 1.7 x 9.5 x 1.1 centimeter in the left intra pontine cistern. This appears approximately stable in size and appearance. Contrast-enhanced MRI should be obtained for better evaluation. Other findings as above. Against Medical Advice - AMA Patient Left Against Medical Advice: The patient declines admission to the hospital and wishes to leave the Emergency Department. This action is against my medical advice. This decision was made with informed refusal. The patient was told that admission to the hospital is necessary. Explanation of the reasons why were discussed. The risks of leaving were explained to the patient and include, but are not limited to, worsening of known or currently unknown conditions, permanent disability and from undiagnosed or untreated conditions. The patient has the capacity to make this informed decision and understands my explanation of the current medical problem and risks of leaving. The patient voluntarily accepts these risks and signed an AMA form documenting our conversation. The patient was given the opportunity to ask questions and reconsider. The patient was encouraged to return to the Emergency Department at any time for further care. Medical Decision Making Medical Decision Making: Progress: Bloodwork, CXR, CT Head ordered and reviewed. Patient reports facial droop is old. Patient has equal smile and no focal deficits. CT Head negative. On re-exam, the patient reports improvement of symptoms but feels some "upset stomach." CT Abd ordered. The patient reports that she does not want to wait for the CT abdomen and is refusing the exam this time. Maalox, pepcid, and viscou lidocaine ordered. On re-exam, the patient reports improvement of symptoms. Lungs are CTA, heart is RRR, abdomen is soft, non-tender and tolerating Po well. Ambulatory in the ED with steady gait. Follow up with the medical doctor/clinic within 1-2 days without fail. Return if worsened. Disposition - Disposition Referrals: Luis Manuel George MD [Non-Staff] - Disposition: AGAINST MEDICAL ADVICE Disposition Time: 14:40 Condition: GOOD Additional Instructions: Follow up with the medical doctor/clinic within 1-2 days without fail. Return if worsened. Prescriptions: Dicyclomine [Bentyl] 10 mg IM TID PRN #20 amp PRN Reason: abdominal pain Famotidine [Pepcid] 20 mg PO BID #20 tab Instructions: Acute Abdomen (Belly Pain), Adult (DC) Forms: [employer] ([place] Irish) - Clinical Impression Clinical Impression: Abdominal wall pain - PA / RN NIGHT / Resident Statement MD/DO has reviewed & agrees with the documentation as recorded. - Scribe Statement The provider has reviewed the documentation as recorded by the Scribe (Meaghan Acuña) All medical record entries made by the Scribe were at my direction and personally dictated by me. I have reviewed the chart and agree that the record accurately reflects my personal performance of the history, physical exam, medical decision making, and the department course for this patient. I have also personally directed, reviewed, and agree with the discharge instructions and disposition.
--- NOTE | 2017-11-29 11:43 | RAD ---
PROCEDURE: CHEST RADIOGRAPH, 1 VIEW HISTORY: abd pain, weakness COMPARISON: 09/09/2017 FINDINGS: LUNGS: Clear. PLEURA: No pneumothorax or pleural fluid seen.Biapical pleural parenchymal thickening noted. CARDIOVASCULAR: Normal. OSSEOUS STRUCTURES: No significant abnormalities. VISUALIZED UPPER ABDOMEN: Normal. OTHER FINDINGS: None. IMPRESSION: No focal airspace opacity. No significant interval change. Further imaging can be obtained if clinically indicated.
[2017-11-29 12:12] LABS: BASO # 0.1 K/uL (0.0-0.2); BASO % 1.4 % (0.0-2.0); EOS # 0.2 K/uL (0.0-0.7); EOS % 2.2 % (0.0-4.0); HEMOGLOBIN 11.9 g/dL (11.0-16.0); LYMPH # 3.3 K/uL (1.0-4.3); LYMPH % 45.5 % (20.0-40.0); MEAN CORPUSCULAR HEMOGLOBIN 28.7 pg (27.0-31.0); MEAN CORPUSCULAR HGB CONC 33.5 g/dL (33.0-37.0); MEAN PLATELET VOLUME 9.7 fL (7.2-11.7); MONO # 0.5 K/uL (0.0-0.8); MONO % 7.2 % (0.0-10.0); NEUT # 3.2 K/uL (1.8-7.0); NEUT % 43.7 % (50.0-75.0); NRBC % 0.1 % (0.0-2.0); RBC 4.14 Mil/uL (3.80-5.20); RED CELL DISTRIBUTION WIDTH 15.3 % (11.5-14.5); WHITE BLOOD COUNT 7.3 K/uL (4.8-10.8)
[2017-11-29 12:16] LABS: MEAN CELL VOLUME 85.7 fL (81.0-99.0)
[2017-11-29 12:20] LABS: INR 1.1; PROTHROMBIN TIME 12.4 SECONDS (9.7-12.2)
[2017-11-29 12:35] LABS: ALB/GLOB RATIO 0.9 (1.0-2.1); ALBUMIN 3.5 g/dL (3.5-5.0); ALT/SGPT 47 U/L (9-52); AST/SGOT 54 U/L (14-36); BLOOD UREA NITROGEN 10 mg/dL (7-17); CALCIUM 9.2 mg/dl (8.6-10.4); GFR AFRICAN-AMERICAN > 60; GFR NON-AFRICAN AMERICAN > 60; LIPASE 99 U/L (23-300)
--- NOTE | 2017-11-29 12:36 | CT ---
PROCEDURE: CT HEAD WITHOUT CONTRAST. HISTORY: weakness COMPARISON: 11/08/2016 TECHNIQUE: Axial computed tomography images were obtained through the head/brain without intravenous contrast. Radiation dose: Total exam DLP = 858.7 mGy-cm. This CT exam was performed using one or more of the following dose reduction techniques: Automated exposure control, adjustment of the mA and/or kV according to patient size, and/or use of iterative reconstruction technique. FINDINGS: HEMORRHAGE: No intracranial hemorrhage. BRAIN: No mass effect or edema. Stable generalized volume loss. Patchy and confluent hypodensities throughout the bilateral cerebral hemispheric white matter are most likely from chronic small vessel ischemic changes. Re- demonstration of high density extra-axial structure measuring approximately 1.7 x 9.5 x 1.1 centimeters in the left infra pontine cistern. VENTRICLES: Stable appearance of the ventricles. CALVARIUM: Unremarkable. PARANASAL SINUSES: Possible small polyp (partially visualized) involving the roof of the left maxillary sinus. MASTOID AIR CELLS: Unremarkable as visualized. No inflammatory changes. OTHER FINDINGS: None. IMPRESSION: No CT evidence of acute intracranial hemorrhage or acute territorial infarct. Acute infarction may be CT occult within first 24 hours. If a focal deficit persists, consider followup CT or MRI for further evaluation. Re- demonstration of high density extra-axial structure measuring approximately 1.7 x 9.5 x 1.1 centimeter in the left intra pontine cistern. This appears approximately stable in size and appearance. Contrast-enhanced MRI should be obtained for better evaluation. Other findings as above.
[2017-11-29] MEDS ORDERED: Iohexol 300 100 ML IJ ONE (13:52)
[2017-11-29] MEDS ORDERED: Alum-Mag Hydrox-Simethicone Susp (30 mL) PO STA (14:11)
[2017-11-29] MEDS ORDERED: Belladonna-Phenobarbital PO STA (14:11)
[2017-11-29 14:17] VITALS: BP 171/93; PULSE 64; RESP 18; TEMP 98.5
[2017-11-29] MEDS ORDERED: Alum-Mag Hydrox-Simethicone Susp (30 mL) ONE (14:21)
[2017-11-29] MEDS ORDERED: Belladonna-Phenobarbital ONE (14:21)
== END 2017-11-29 14:50 | disposition left against medical advice (07) ==
LOC: C.ER 09:54
DX: R10.9 Unspecified abdominal pain (principal)
CPT/HCPCS: 70450; 71045; 80053; 82948; 83690; 84484; 85025; 85610; 85730; 96374; 96375; 99285; J1885; J2765; Q9967

== ENCOUNTER 2018-01-23 09:58 | Emergency (ER) | payer MEDICARE, OTHER ==
[2018-01-23 09:58] VITALS: BMI 27.8
[2018-01-23 10:30] VITALS: RESP 18
[2018-01-23] MEDS ORDERED: Alum-Mag Hydrox-Simethicone Susp (30 mL) PO STA (11:16)
[2018-01-23] MEDS ORDERED: Aluminum Hydroxide/Magnesium Hydroxide Susp (30 mL) ONE (11:27)
[2018-01-23 11:30] VITALS: BP 122/79; PULSE 67; TEMP 98.9; O2SAT 98
--- NOTE | 2018-01-23 11:53 | C.PDOC ---
Time Seen by Provider: 01/23/18 11:07 Chief Complaint (Nursing): ENT Problem History Per: Patient Onset/Duration Of Symptoms: Days (about 1 week) Current Symptoms Are (Timing): Still Present Location Of Pain: Throat Associated Symptoms: Sore Throat Severity: Moderate Additional History Per: Prior Records Past Medical History Reviewed: Historical Data, Nursing Documentation, Vital Signs Vital Signs: Last Vital Signs Temp 98.9 F 01/23/18 11:29 Pulse 67 01/23/18 11:29 Resp 18 01/23/18 11:29 BP 122/79 01/23/18 11:29 Pulse Ox 98 01/23/18 11:29 - Medical History PMH: Anxiety, Arthritis, Asthma, Back Problems, COPD, Dementia, Depression, Emphysema, Gastritis, GERD, HTN, Hypercholesterolemia, Schizophrenia, Seizures, Chronic Pain (neck and back) Surgical History: Appendectomy, Back Surgery, Cholecystectomy - [facility] Procedures COLONOSCOPY (04/22/12) DETOXIFICATION SERVICES FOR SUBSTANCE ABUSE TREATMENT (08/28/17) ESOPHAGOGASTRODUODENOSCOPY [EGD] W/CLOSED BIOPSY (02/04/15) EXCISION OF STOMACH, ENDO, DIAGN (11/11/17) GROUP PSYCHOTHERAPY (11/08/16) INDIVIDUAL PSYCHOTHERAPY, COGNITIVE-BEHAVIORAL (11/08/16) INSERT INFUSION DEV IN R INT JUGULAR VEIN, PERC (11/11/16) INSERTION OF ENDOTRACHEAL AIRWAY INTO TRACHEA, VIA OPENING (11/11/16) RESPIRATORY VENTILATION, 24-96 CONSECUTIVE HOURS (11/11/16) Family History: States: Unknown Family Hx - Social History Hx Tobacco Use: Yes Hx Alcohol Use: Yes Hx Substance Use: No - Immunization History Hx Tetanus Toxoid Vaccination: Yes Hx Influenza Vaccination: Yes (06/2017) Hx Pneumococcal Vaccination: No Review Of Systems Except As Marked, All Systems Reviewed And Found Negative. Constitutional: Negative for: Weakness ENT: Positive for: Nose Congestion, Throat Pain Cardiovascular: Negative for: Chest Pain Respiratory: Negative for: Cough, Shortness of Breath Gastrointestinal: Negative for: Vomiting Skin: Negative for: Rash Neurological: Negative for: Weakness, Numbness Physical Exam - Physical Exam Appears: Non-toxic, No Acute Distress Skin: Normal Color, Warm, Dry, No Rash Head: Atraumatic, Normacephalic Eye(s): bilateral: PERRL, EOMI Oral Mucosa: Moist, No Drooling, No Trismus Throat: Erythema, No Exudate, No Drooling, No Mass Neck: Normal ROM, Supple Cardiovascular: Rhythm Regular Respiratory: Normal Breath Sounds, No Accessory Muscle Use Gastrointestinal/Abdominal: Soft, No Tenderness Back: No CVA Tenderness Extremity: Normal ROM Neurological/Psych: Oriented x3, Normal Speech, Normal Motor, Normal Sensation ED Course And Treatment O2 Sat by Pulse Oximetry: 98 Pulse Ox Interpretation: Normal Reassessment Condition: Improved Disposition Counseled Patient/Family Regarding: Studies Performed, Diagnosis, Need For Followup, Rx Given - Disposition Referrals: Luis Manuel George MD [Non-Staff] - Disposition: HOME/ ROUTINE Disposition Time: 11:53 Condition: STABLE Additional Instructions: Follow up with your doctor for further evaluation and treatment. Return to the ER if you develop trouble breathing or swallowing, worsening of symptoms or if you have any other concerns. Prescriptions: Loratadine [Claritin] 10 mg PO DAILY #30 tab Naproxen 375 mg PO BID PRN #20 tablet PRN Reason: Pain, Moderate (4-7) Instructions: Sore Throat, Adult (DC) - Clinical Impression Clinical Impression: Pharyngitis
== END 2018-01-23 12:08 | disposition home or self-care (01) ==
LOC: C.ER 09:58
DX: J02.9 Acute pharyngitis, unspecified (principal); E78.00 Pure hypercholesterolemia, unspecified; F20.9 Schizophrenia, unspecified; I10 Essential (primary) hypertension; Z72.0 Tobacco use

== ENCOUNTER 2018-02-16 08:02 | Observation (INO) | payer MEDICARE, OTHER ==
[2018-02-16 08:02] VITALS: BMI 27.8
--- NOTE | 2018-02-16 08:41 | C.PDOC ---
History Of Present Illness 62-YEAR-OLD FEMALE, PRESENTS TO THE EMERGENCY DEPARTMENT WITH COMPLAINTS OF RECURRING CP X 1 HR. MID CHEST, RADIATION BACK WAX WANE. SIM EPISODE 4 DAYS AGO. PS HASN'T HAD CP SINCE 11/2017. HO GERD, COMPLIANT W MEDS. WORSE W MOVEMENT. HO PRIOR OPIATE DEPENDENCE ADMITTED 11/2017 FOR SAME. TNI X2 IS NEGATIVE DDIMER WAS ELEVATED CTA IS NEG FOR PE VENOUS DOPPLER WAS NEG EGD WAS DONE SHOW GASTRITIS/HIATAL HERNIA/DUODENITIS EXAM NAD NONTOXIC LUNGS CTA B/L NO W/R/R CV RRR ABD NEG REMAINDER NEG PMD WASSEF Time Seen by Provider: 02/16/18 08:23 Chief Complaint (Nursing): Shortness Of Breath History Per: Patient History/Exam Limitations: no limitations Past Medical History Reviewed: Historical Data, Nursing Documentation, Vital Signs Vital Signs: Last Vital Signs Temp 98.8 F 02/16/18 08:10 Pulse 83 02/16/18 08:10 Resp 18 02/16/18 08:33 BP 146/72 02/16/18 08:10 Pulse Ox 98 02/16/18 12:41 - Medical History PMH: Anxiety, Arthritis, Asthma, Back Problems, COPD, Dementia, Depression, Emphysema, Gastritis, GERD, HTN, Hypercholesterolemia, Schizophrenia, Seizures, Chronic Pain (neck and back) Surgical History: Appendectomy, Back Surgery, Cholecystectomy - [facility] Procedures COLONOSCOPY (04/22/12) DETOXIFICATION SERVICES FOR SUBSTANCE ABUSE TREATMENT (08/28/17) ESOPHAGOGASTRODUODENOSCOPY [EGD] W/CLOSED BIOPSY (02/04/15) EXCISION OF STOMACH, ENDO, DIAGN (11/11/17) GROUP PSYCHOTHERAPY (11/08/16) INDIVIDUAL PSYCHOTHERAPY, COGNITIVE-BEHAVIORAL (11/08/16) INSERT INFUSION DEV IN R INT JUGULAR VEIN, PERC (11/11/16) INSERTION OF ENDOTRACHEAL AIRWAY INTO TRACHEA, VIA OPENING (11/11/16) RESPIRATORY VENTILATION, 24-96 CONSECUTIVE HOURS (11/11/16) Family History: States: No Known Family Hx - Social History Hx Tobacco Use: Yes Hx Alcohol Use: No Hx Substance Use: No - Immunization History Hx Tetanus Toxoid Vaccination: No Hx Influenza Vaccination: Yes (06/2017) Hx Pneumococcal Vaccination: No Review Of Systems Constitutional: Negative for: Fever Cardiovascular: Positive for: Chest Pain Respiratory: Negative for: Shortness of Breath Gastrointestinal: Negative for: Nausea, Vomiting, Abdominal Pain Musculoskeletal: Positive for: Back Pain. Negative for: Neck Pain Skin: Negative for: Rash Neurological: Negative for: Weakness, Numbness, Headache, Dizziness Physical Exam - Physical Exam Appears: Non-toxic, No Acute Distress Skin: Normal Color, Warm, Dry, No Rash Head: Atraumatic Eye(s): bilateral: Normal Inspection, PERRL, EOMI Nose: Normal Oral Mucosa: Moist Lips: Normal Appearing Neck: Normal ROM Chest: Symmetrical Cardiovascular: Rhythm Regular Respiratory: Normal Breath Sounds, No Accessory Muscle Use Gastrointestinal/Abdominal: Soft, No Tenderness Extremity: Normal ROM, No Deformity Neurological/Psych: Oriented x3, Normal Speech ED Course And Treatment - Laboratory Results Result Diagrams: 02/16/18 10:07 02/16/18 11:46 ECG: Interpreted By Me ECG Rhythm: Sinus Rhythm ECG Interpretation: Normal Rate From EC O2 Sat by Pulse Oximetry: 98 Pulse Ox Interpretation: Normal - Radiology CXR: Interpreted by Me CXR Interpretation: Yes: No Acute Disease Progress - Re-Evaluation Re-evaluation Note: 02/16/18 11:05 cp resolved. co persist back pain. VSS LABS PENDING 02/16/18 12:51 REMAINS CP FREE. D/W DR DINESH FLOR EEG TECH WILL ADMIT - Data Reviewed Data Reviewed: Lab, Diagnostic imaging, EKG, Old records Medical Decision Making Medical Decision Making: PRIOR VISITS: NOTES AND RECORDS FROM PREVIOUS VISITS WERE REVIEWED. PT SEEN AND ADMITTED 2017 FOR SAME. TNI X2 IS NEGATIVE. DDIMER WAS ELEVATED. CTA IS NEG FOR PE. VENOUS DOPPLER WAS NEG. EGD WAS DONE SHOW GASTRITIS/HIATAL HERNIA/DUODENITIS Disposition Counseled Patient/Family Regarding: Studies Performed, Diagnosis - Disposition Disposition: HOSPITALIZED Disposition Time: 12:52 Condition: STABLE Forms: [facility] (Kyrgyz) - POA Present On Arrival: None - Clinical Impression Clinical Impression: Chest pain, Back pain, At risk for abuse of opiates - Scribe Statement The provider has reviewed the documentation as recorded by the Scribe (Jeannette Garcia) All medical record entries made by the Scribe were at my direction and personally dictated by me. I have reviewed the chart and agree that the record accurately reflects my personal performance of the history, physical exam, medical decision making, and the department course for this patient. I have also personally directed, reviewed, and agree with the discharge instructions and disposition. Decision To Admit - Pt Status Changed To: Hospital Disposition Of: Observation - . Bed Request Type: Telemetry Admitting Physician: Gina Darling Patient Diagnosis: Chest pain, Back pain, At risk for abuse of opiates
[2018-02-16] MEDS ORDERED: Aspirin 325 mg EC Tablets PO STA (08:57)
[2018-02-16] MEDS ORDERED: Magnesium Hydroxide Susp 30 ml UD PO STA (08:58)
[2018-02-16] MEDS ORDERED: Aspirin 325 mg EC Tablets PO ONE (09:07)
[2018-02-16] MEDS ORDERED: Aluminum Hydroxide/Magnesium Hydroxide Susp (30 mL) ONE (09:08)
[2018-02-16 10:13] LABS: BASO # 0.1 K/uL (0.0-0.2); BASO % 0.6 % (0.0-2.0); EOS % 0.2 % (0.0-4.0); HEMOGLOBIN 13.7 g/dL (11.0-16.0); LYMPH # 3.2 K/uL (1.0-4.3); LYMPH % 34.3 % (20.0-40.0); MEAN CELL VOLUME 86.8 fL (81.0-99.0); MEAN CORPUSCULAR HGB CONC 33.4 g/dL (33.0-37.0); MEAN PLATELET VOLUME 10.8 fL (7.2-11.7); MONO # 0.4 K/uL (0.0-0.8); MONO % 4.5 % (0.0-10.0); NEUT # 5.7 K/uL (1.8-7.0); NEUT % 60.4 % (50.0-75.0); NRBC % 0.1 % (0.0-2.0); RBC 4.72 Mil/uL (3.80-5.20); RED CELL DISTRIBUTION WIDTH 15.5 % (11.5-14.5); WHITE BLOOD COUNT 9.4 K/uL (4.8-10.8)
--- NOTE | 2018-02-16 11:03 | RAD ---
HISTORY: chest pain COMPARISON: Comparison is made with 11/29/2017 TECHNIQUE: Chest PA and lateral FINDINGS: LUNGS: No active pulmonary disease. PLEURA: No significant pleural effusion identified. No pneumothorax apparent. CARDIOVASCULAR: Normal. OSSEOUS STRUCTURES: No significant abnormalities. VISUALIZED UPPER ABDOMEN: Normal. OTHER FINDINGS: None. IMPRESSION: No active disease.
[2018-02-16] MEDS ORDERED: Lidocaine 5% Patch TD STA (11:04)
[2018-02-16] MEDS ORDERED: Lidocaine 5% Patch TD ONE (11:14)
[2018-02-16 12:05] LABS: ALBUMIN 3.8 g/dL (3.5-5.0); ALT/SGPT 40 U/L (9-52); AST/SGOT 47 U/L (14-36); BLOOD UREA NITROGEN 12 mg/dL (7-17); CALCIUM 9.6 mg/dl (8.6-10.4); GFR AFRICAN-AMERICAN > 60; GFR NON-AFRICAN AMERICAN > 60; LIPASE 145 U/L (23-300)
[2018-02-16] MEDS ORDERED: Albuterol HFA 90 mcg/actuation (8 g) IH PRN (13:52)
[2018-02-16] MEDS ORDERED: Albuterol-Ipratrop 3 mg / 0.5 (3 ml) UD INH PRN (14:01)
[2018-02-16 14:50] LABS: BARBITURATES, UR NEGATIVE (NEGATIVE); BENZODIAZEPINES, UR NEGATIVE (NEGATIVE); OPIATES, UR NEGATIVE (NEGATIVE); PHENCYCLIDINE, UR NEGATIVE (NEGATIVE)
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
[2018-02-16] MEDS ORDERED: Sucralfate 1 gm/10 ml Oral Susp UD PO SCH (18:00)
[2018-02-16] MEDS ORDERED: Dextrose 50% SYRINGE Inj (50 ml) IVP PRN (18:35)
[2018-02-16] MEDS ORDERED: Glucagon Recombinant 1 mg Inj IM PRN (18:35)
[2018-02-16] MEDS ORDERED: Ammonium Lactate 12% Lotion (225 g) EXT SCH (18:45)
[2018-02-16 21:31] LABS: CK-MB 0.42 ng/mL (0.0-3.38)
[2018-02-16] MEDS: (Novolin R) Insulin Human Regular 100 units/ml vial SC SCH (22:00)
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
[2018-02-17 01:00] LABS: CK-MB 0.39 ng/mL (0.0-3.38)
[2018-02-17] MEDS: (Novolin R) Insulin Human Regular 100 units/ml vial SC SCH (08:16)
[2018-02-17 08:45] VITALS: BP 167/93; PULSE 64; RESP 18; TEMP 98.4; O2SAT 97
== END 2018-02-17 08:49 | disposition left against medical advice (07) ==
LOC: C.ER 08:02 → C.9E 12:53 → C.6T 17:09
PROVIDERS: ADMIT Internal Medicine; ATTEND Internal Medicine
DX: R07.9 Chest pain, unspecified (principal); F41.9 Anxiety disorder, unspecified; F20.9 Schizophrenia, unspecified; E78.00 Pure hypercholesterolemia, unspecified; J44.9 Chronic obstructive pulmonary disease, unspecified; I10 Essential (primary) hypertension; K21.9 Gastro-esophageal reflux disease without esophagitis; K29.70 Gastritis, unspecified, without bleeding; R56.9 Unspecified convulsions; Z90.49 Acquired absence of other specified parts of digestive tract; Z87.891 Personal history of nicotine dependence
CPT/HCPCS: 36415; 71046; 80053; 82948; 83690; 84484; 85025; 96374; 99285; G0378; G0480; J1644; J1885

== ENCOUNTER 2018-04-14 10:00 | Emergency (ER) | payer MEDICARE, OTHER ==
[2018-04-14 10:03] VITALS: BMI 30.9
[2018-04-14 10:08] VITALS: RESP 18
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
[2018-04-14 10:35] LABS: SQUAMOUS EPITHIAL 19 /hpf (0-5); URINE BACTERIA MANY (<OCC); URINE BILIRUBIN NEGATIVE (NEGATIVE); URINE BLOOD NEGATIVE (NEGATIVE); URINE CLARITY Clear (Clear); URINE COLOR Yellow (YELLOW); URINE GLUCOSE (UA) NORMAL (Normal); URINE LEUKOCYTE ESTERASE NEG Leu/uL (Negative); URINE PROTEIN NEGATIVE (NEGATIVE); URINE UROBILINOGEN NORMAL mg/dL (0.2-1.0)
[2018-04-14] MEDS ORDERED: Sodium Chloride 0.9% 500 ML IV STA (10:43)
[2018-04-14 11:42] LABS: AMYLASE 90 U/L (30-110); CALCIUM 9.5 mg/dl (8.6-10.4); GFR AFRICAN-AMERICAN > 60; GFR NON-AFRICAN AMERICAN > 60; LIPASE 124 U/L (23-300)
[2018-04-14 12:09] LABS: ALB/GLOB RATIO 1.2 (1.0-2.1); ALBUMIN 3.7 g/dL (3.5-5.0); ALT/SGPT 36 U/L (9-52); AST/SGOT 58 U/L (14-36); BLOOD UREA NITROGEN 9 mg/dL (7-17)
--- NOTE | 2018-04-14 13:09 | US ---
Date of service: 04/14/2018 HISTORY: upper abdominal pain/distention/low grade fever COMPARISON: None. TECHNIQUE: Sonographic evaluation of the abdomen. FINDINGS: LIVER: Measures 17.8 cm. Diffusely increased echogenicity of the liver parenchyma. Consistent with fatty infiltration. Smooth contour. No mass. No intrahepatic biliary ductal dilatation. GALLBLADDER: Status post cholecystectomy. COMMON BILE DUCT: Measures 8 mm. Consistent with prior cholecystectomy. PANCREAS: Unremarkable as visualized. No mass. No ductal dilatation. RIGHT KIDNEY: Measures 11.8cm. Normal echogenicity. No calculus, mass, or hydronephrosis. LEFT KIDNEY: Measures 10.7cm. Normal echogenicity. No calculus, mass, or hydronephrosis. SPLEEN: Status post splenectomy AORTA: No aneurysmal dilatation. IVC: Unremarkable. OTHER FINDINGS: None. IMPRESSION: Fatty infiltration of the liver. Status post cholecystectomy and splenectomy. Otherwise unremarkable examination.
--- NOTE | 2018-04-14 14:11 | CT ---
Date of service: 04/14/2018 PROCEDURE: CT Abdomen and Pelvis with Oral contrast. HISTORY: Abdominal pain. COMPARISON: Comparison made with CT scan abdomen pelvis 09/09/2017. TECHNIQUE: Contiguous axial images of the abdomen and pelvis performed without oral or intravenous contrast material. . Coronal and Sagittal reformats generated. This CT exam was performed using one or more of the following dose reduction techniques: Automated exposure control, adjustment of the mA and/or kV according to patient size, and/or use of iterative reconstruction technique. Radiation dose: Total exam DLP = 371.859 mGy-cm. FINDINGS: LOWER THORAX: Minor passive/dependent type atelectasis both posterior sulci left greater than right. No focal consolidation effusion or pneumothorax Heart size within range of normal. No significant pericardial effusion. LIVER: Liver exhibits relatively normal size measuring approximately 17 6.2 cm in CC dimension. No obvious hepatic mass collection calcification. GALLBLADDER AND BILE DUCTS: Cholecystectomy again noted. . Again noted is dilatation of the common bile duct. PANCREAS: The unenhanced pancreas is poorly delineated on this exam due to the lack of oral and intravenous contrast material. Pancreatic duct which was visible though not significantly dilated on the prior exam is less well seen on this study due to the lack of circulating intravenous contrast material. SPLEEN: Re- demonstrated are what appears to represent residual splenic fragments or splenules although better visualized on the prior exam due to intravenous contrast material. . Note that there does appear to be metallic clips in the left upper quadrant of the abdomen suggesting the former is more likely ADRENALS: . There are no adrenal lesions identified. KIDNEYS AND URETERS: Kidneys demonstrate relatively symmetric size. No evidence of nephrolithiasis . Prominent right-sided extrarenal pelvis and proximal ureter. . No obvious renal mass or collection. BLADDER: Urinary bladder is physiologically distended. No evidence of intraluminal urinary bladder calculi. REPRODUCTIVE: Presumed hysterectomy. APPENDIX: Normal appendix. BOWEL: Evaluation of the bowel is limited due to the lack of oral contrast material. The stomach is incompletely distended which presumably accounts for thick-walled appearance. Note that the possibility of gastritis or other intrinsic/invasive wall lesion cannot be excluded. Clinical correlation recommended to determine whether additional evaluation such as endoscopy may be prudent. . Visualized loops of small bowel exhibit normal contour and caliber. No evidence of acute mechanical small bowel obstruction hilum. Splinter seen throughout the large bowel. There are few scattered colonic diverticula noted along the distal descending/sigmoid colon junction. No evidence to suggest acute diverticulitis. PERITONEUM: Re- demonstrated is a small fat containing umbilical hernia. No evidence of free intraperitoneal air. No free or loculated fluid collections. LYMPH NODES: Unremarkable. No enlarged lymph nodes. VASCULATURE: Unremarkable. No aortic aneurysm. BONES: No acute compression fractures no retropulsed fragments. Multilevel degenerative spondylosis most notably affecting the L5-S1 level. . OTHER FINDINGS: None. IMPRESSION: Cholecystectomy. Mild dilatation of the common bile duct likely due to post cholecystectomy status. 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 . Wall thickening of the stomach again noted likely due to incomplete distention however gastritis or other intrinsic/ invasive wall lesion not excluded. . Clinical correlation recommended determine whether followup endoscopy is warranted. . Few scattered colonic diverticula without radiographic evidence of acute diverticulitis. . Hysterectomy. See above discussion for additional details and findings.
[2018-04-14] MEDS ORDERED: Morphine 4 MG/ML VIAL ONE (14:25)
[2018-04-14 14:30] VITALS: BP 139/67; PULSE 61; TEMP 99.1
[2018-04-14 14:32] VITALS: O2SAT 99
== END 2018-04-14 15:12 | disposition home or self-care (01) ==
LOC: C.ER 10:00
DX: R10.11 Right upper quadrant pain (principal)
CPT/HCPCS: 74176; 76700; 80053; 81001; 82150; 82550; 82553; 83690; 84484; 96372; 99285; J2270

== ENCOUNTER 2018-05-14 07:01 | Emergency (ER) | payer MEDICARE, OTHER ==
[2018-05-14 07:01] VITALS: BMI 30.9
[2018-05-14 07:13] VITALS: TEMP 98.7
[2018-05-14 07:49] VITALS: RESP 16
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
--- NOTE | 2018-05-14 08:32 | RAD ---
Date of service: 05/14/2018 PROCEDURE: CHEST RADIOGRAPH, 1 VIEW HISTORY: SOB COMPARISON: 02/16/2018. FINDINGS: LUNGS: The lungs are well inflated and clear. PLEURA: No pneumothorax or pleural fluid seen. CARDIOVASCULAR: Normal. OSSEOUS STRUCTURES: No significant abnormalities. VISUALIZED UPPER ABDOMEN: Normal. OTHER FINDINGS: None. IMPRESSION: No acute findings.
[2018-05-14 09:31] LABS: SQUAMOUS EPITHIAL < 1 /hpf (0-5); URINE BACTERIA RARE (<OCC); URINE BILIRUBIN NEGATIVE (NEGATIVE); URINE BLOOD NEGATIVE (NEGATIVE); URINE CLARITY Clear (Clear); URINE COLOR Straw (YELLOW); URINE GLUCOSE (UA) NORMAL (Normal); URINE LEUKOCYTE ESTERASE NEG Leu/uL (Negative); URINE PROTEIN NEGATIVE (NEGATIVE); URINE UROBILINOGEN NORMAL mg/dL (0.2-1.0)
[2018-05-14 10:11] LABS: BASO # 0.1 K/uL (0.0-0.2); BASO % 1.2 % (0.0-2.0); EOS # 0.1 K/uL (0.0-0.7); EOS % 1.2 % (0.0-4.0); LYMPH # 4.5 K/uL (1.0-4.3); LYMPH % 45.6 % (20.0-40.0); MEAN CELL VOLUME 88.5 fL (81.0-99.0); MEAN CORPUSCULAR HEMOGLOBIN 29.3 pg (27.0-31.0); MEAN CORPUSCULAR HGB CONC 33.2 g/dL (33.0-37.0); MEAN PLATELET VOLUME 9.5 fL (7.2-11.7); MONO # 0.7 K/uL (0.0-0.8); MONO % 7.4 % (0.0-10.0); NEUT # 4.5 K/uL (1.8-7.0); NEUT % 44.6 % (50.0-75.0); RBC 3.98 Mil/uL (3.80-5.20); RED CELL DISTRIBUTION WIDTH 15.5 % (11.5-14.5)
[2018-05-14 10:14] LABS: HEMOGLOBIN 11.7 g/dL (11.0-16.0)
[2018-05-14 10:28] LABS: ALB/GLOB RATIO 1.3 (1.0-2.1); ALBUMIN 3.9 g/dL (3.5-5.0); ALT/SGPT 53 U/L (9-52); AST/SGOT 47 U/L (14-36); BLOOD UREA NITROGEN 8 mg/dL (7-17); CALCIUM 9.7 mg/dl (8.6-10.4); GFR NON-AFRICAN AMERICAN > 60
[2018-05-14 10:38] VITALS: BP 116/57; PULSE 56
[2018-05-14 10:38] LABS: B-TYPE NATRIURETIC PEPTIDE 41.1 pg/mL (0-900)
[2018-05-14 11:59] VITALS: O2SAT 96
[2018-05-14] MEDS ORDERED: Potassium Chloride 20 mEq ER Tab PO STA (12:06)
[2018-05-14] MEDS ORDERED: Potassium Chloride 20 mEq ER Tab PO ONE (12:09)
[2018-05-15] MEDS ORDERED: Potassium Chloride 20 mEq ER Tab PO SCH (10:00)
--- NOTE | 2018-05-15 14:32 | CARD ---
APPROVED REPORT Date of service: 05/14/2018 EKG Measurement Heart [id number] <Conclusion> Normal sinus rhythm Normal ECG
== END 2018-05-14 12:29 | disposition home or self-care (01) ==
LOC: C.ER 07:01
DX: R06.00 Dyspnea, unspecified (principal)

== ENCOUNTER 2018-06-10 15:13 | Emergency (ER) | payer MEDICARE, OTHER ==
[2018-06-10 15:13] VITALS: BMI 26.9
[2018-06-10 15:18] VITALS: TEMP 98.7
[2018-06-10] MEDS ORDERED: Sodium Chloride 0.9% 500 ML IV ONE (15:40)
[2018-06-10] MEDS ORDERED: Sodium Chloride 0.9% 1,000 ML ONE (15:48)
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
[2018-06-10 16:28] LABS: BASO # 0.2 K/uL (0.0-0.2); BASO % 1.9 % (0.0-2.0); EOS # 0.1 K/uL (0.0-0.7); EOS % 0.9 % (0.0-4.0); HEMOGLOBIN 11.8 g/dL (11.0-16.0); LYMPH # 4.5 K/uL (1.0-4.3); LYMPH % 45.4 % (20.0-40.0); MEAN CELL VOLUME 89.4 fL (81.0-99.0); MEAN CORPUSCULAR HEMOGLOBIN 29.7 pg (27.0-31.0); MEAN CORPUSCULAR HGB CONC 33.2 g/dL (33.0-37.0); MEAN PLATELET VOLUME 9.9 fL (7.2-11.7); MONO # 0.6 K/uL (0.0-0.8); MONO % 6.1 % (0.0-10.0); NEUT # 4.6 K/uL (1.8-7.0); NEUT % 45.7 % (50.0-75.0); NRBC % 0.1 % (0.0-2.0); RBC 3.96 Mil/uL (3.80-5.20); RED CELL DISTRIBUTION WIDTH 15.3 % (11.5-14.5)
[2018-06-10 16:39] LABS: SQUAMOUS EPITHIAL 1 /hpf (0-5); URINE BACTERIA FEW (<OCC); URINE BILIRUBIN NEGATIVE (NEGATIVE); URINE BLOOD 1+ (NEGATIVE); URINE CLARITY Hazy (Clear); URINE COLOR Yellow (YELLOW); URINE GLUCOSE (UA) NORMAL (Normal); URINE LEUKOCYTE ESTERASE 2+ Leu/uL (Negative); URINE PROTEIN NEGATIVE (NEGATIVE)
[2018-06-10 16:43] LABS: ALB/GLOB RATIO 1.3 (1.0-2.1); ALBUMIN 3.8 g/dL (3.5-5.0); ALT/SGPT 44 U/L (9-52); AST/SGOT 34 U/L (14-36); BLOOD UREA NITROGEN 7 mg/dL (7-17); CALCIUM 9.7 mg/dl (8.6-10.4); GFR NON-AFRICAN AMERICAN > 60; LIPASE 69 U/L (23-300)
[2018-06-10] MEDS ORDERED: Iohexol 240 (50 ml) PO STA (16:48)
[2018-06-10] MEDS ORDERED: Potassium Chloride 20 mEq ER Tab PO STA ×2 (16:49)
[2018-06-10] MEDS ORDERED: Potassium Chloride 20 mEq 100 ML ONE (17:02)
[2018-06-10] MEDS ORDERED: Potassium Chloride 20 mEq ER Tab PO ONE (17:02)
[2018-06-10 17:07] VITALS: PULSE 76
[2018-06-10] MEDS ORDERED: Iohexol 240 (50 ml) ONE (17:15)
--- NOTE | 2018-06-10 17:53 | RAD ---
Date of service: 06/10/2018 PROCEDURE: Radiographs of the chest and abdomen (obstructive series) HISTORY: Abd Pain COMPARISON: CT abdomen and pelvis without contrast performed 04/14/18 TECHNIQUE: AP radiograph of the chest, with upright and supine radiographs of the abdomen. FINDINGS: CHEST: Heart size appears within normal limits. Ectatic aorta. Atherosclerotic calcification of the aortic knob. Biapical pleural thickening. No focal consolidation, significant pleural effusion, or definite pneumothorax identified. Please note that chest x-ray has limited sensitivity for the detection of pulmonary masses. ABDOMEN AND PELVIS: Nonobstructive bowel gas pattern. No definite free air. Moderate constipation. Upper abdominal surgical clips. No acute osseous abnormality is detected. IMPRESSION: No acute findings.
[2018-06-10] MEDS ORDERED: cefTRIAXone IV 1 gm in Dextros 50 ML IV STA (18:24)
[2018-06-10 18:45] VITALS: O2SAT 98
[2018-06-10] MEDS ORDERED: cefTRIAXone 1 gm 1 GM/100 ML BAG IVPB ONE (21:23)
[2018-06-10 21:42] VITALS: BP 155/82; RESP 17
--- NOTE | 2018-06-11 07:59 | CT ---
PROCEDURE: CT Abdomen and Pelvis without IV contrast. HISTORY: abd pain, decreased BM, nausea, r/o SBO vs mass COMPARISON: Obstructive series performed 06/10/20, CT abdomen and pelvis performed 04/14/18 TECHNIQUE: Contiguous axial images of the abdomen and pelvis. Oral contrast was administered. No IV contrast given. Coronal and Sagittal reformats generated and reviewed. Radiation dose: Total exam DLP = 489.02 mGy-cm. This CT exam was performed using one or more of the following dose reduction techniques: Automated exposure control, adjustment of the mA and/or kV according to patient size, and/or use of iterative reconstruction technique. FINDINGS: There is limited evaluation of the solid organs without the administration of IV contrast. LOWER THORAX: No visible consolidation, pleural effusion, or pneumothorax. LIVER: Unremarkable. GALLBLADDER AND BILE DUCTS: Cholecystectomy. PANCREAS: Unremarkable. SPLEEN: Unremarkable. ADRENALS: Unremarkable. KIDNEYS AND URETERS: No hydronephrosis or obstructing renal calculus. BLADDER: The urinary bladder appears unremarkable. REPRODUCTIVE: Uterus is absent, presumably due to hysterectomy. APPENDIX: The presumed appendix appears within normal limits of caliber. No secondary signs of acute appendicitis. BOWEL: The stomach is nondistended. Mildly dilated loops of small bowel in the mid abdomen. Contrast extends throughout small bowel into the cecum. Appearance does not suggest obstruction. Diverticulosis without CT evidence of acute diverticulitis. Moderate constipation. PERITONEUM: No significant free fluid. No definite free air. LYMPH NODES: No bulky lymphadenopathy identified. VASCULATURE: Atherosclerotic calcifications. No aortic aneurysm. BONES: Degenerative changes of the spine. OTHER FINDINGS: None. IMPRESSION: Mildly distended loops of small bowel without evidence of obstruction. Correlate clinically. Moderate constipation. Cholecystectomy. Preliminary impression was provided by [facility]
--- NOTE | 2018-06-11 13:16 | CARD ---
APPROVED REPORT Date of service: 06/10/2018 EKG Measurement Heart [id number] <Conclusion> Normal sinus rhythm Normal ECG
== END 2018-06-10 22:22 | disposition home or self-care (01) ==
LOC: C.ER 15:13
DX: R10.10 Upper abdominal pain, unspecified (principal); E87.6 Hypokalemia; R11.0 Nausea; E78.00 Pure hypercholesterolemia, unspecified; F20.9 Schizophrenia, unspecified; I10 Essential (primary) hypertension; J44.9 Chronic obstructive pulmonary disease, unspecified; Z72.0 Tobacco use
CPT/HCPCS: 74022; 74176; 80053; 81001; 83690; 85025; 87086; 93005; 94770; 96361; 96365; 96375; 99285; J0696; J1885; J3480; J7040; Q9966

== ENCOUNTER 2018-06-26 10:30 | Emergency (ER) | payer MEDICARE, OTHER ==
[2018-06-26 10:30] VITALS: BMI 26.9
[2018-06-26] MEDS ORDERED: Sodium Chloride 0.9% 1,000 ML IV ONE (11:24)
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
[2018-06-26] MEDS ORDERED: Sodium Chloride 0.9% 1,000 ML ONE (11:48)
[2018-06-26 12:19] LABS: BASO # 0.1 K/uL (0.0-0.2); EOS # 0.1 K/uL (0.0-0.7); EOS % 1.3 % (0.0-4.0); HEMOGLOBIN 12.1 g/dL (11.0-16.0); LYMPH # 3.9 K/uL (1.0-4.3); LYMPH % 41.5 % (20.0-40.0); MEAN CORPUSCULAR HEMOGLOBIN 28.6 pg (27.0-31.0); MEAN PLATELET VOLUME 8.7 fL (7.2-11.7); MONO # 0.6 K/uL (0.0-0.8); MONO % 6.1 % (0.0-10.0); NEUT # 4.7 K/uL (1.8-7.0); NEUT % 50.1 % (50.0-75.0); NRBC % 0.1 % (0.0-2.0); RBC 4.23 Mil/uL (3.80-5.20); RED CELL DISTRIBUTION WIDTH 16.1 % (11.5-14.5); WHITE BLOOD COUNT 9.4 K/uL (4.8-10.8)
[2018-06-26 12:24] LABS: MEAN CELL VOLUME 86.6 fL (81.0-99.0)
[2018-06-26 12:34] LABS: ALB/GLOB RATIO 1.3 (1.0-2.1); ALT/SGPT 43 U/L (9-52); AST/SGOT 31 U/L (14-36); BLOOD UREA NITROGEN 8 mg/dL (7-17); CALCIUM 9.5 mg/dl (8.6-10.4); GFR NON-AFRICAN AMERICAN > 60; LIPASE 137 U/L (23-300)
[2018-06-26 12:44] LABS: SQUAMOUS EPITHIAL 1 /hpf (0-5); URINE BACTERIA RARE (<OCC); URINE BILIRUBIN NEGATIVE (NEGATIVE); URINE BLOOD NEGATIVE (NEGATIVE); URINE CLARITY Clear (Clear); URINE COLOR Straw (YELLOW); URINE GLUCOSE (UA) NORMAL (Normal); URINE LEUKOCYTE ESTERASE TRACE Leu/uL (Negative); URINE PROTEIN NEGATIVE (NEGATIVE); URINE UROBILINOGEN NORMAL mg/dL (0.2-1.0)
--- NOTE | 2018-06-26 12:48 | RAD ---
Date of service: 06/26/2018 PROCEDURE: Radiographs of the chest and abdomen (obstructive series) HISTORY: abd pain COMPARISON: Obstructive series performed 06/10/18 TECHNIQUE: AP radiograph of the chest, with upright and supine radiographs of the abdomen. FINDINGS: CHEST: Heart size appears within normal limits. Atherosclerotic calcifications of the aortic knob. Biapical pleural thickening. Hyperinflation may be seen in the setting of COPD. No focal consolidation, significant pleural effusion, or definite pneumothorax identified.Please note that chest x-ray has limited sensitivity for the detection of pulmonary masses. ABDOMEN AND PELVIS: Right upper quadrant surgical clips. Nonobstructive bowel gas pattern. Moderate to severe constipation. No definite free air. Degenerative changes of the osseous structures. IMPRESSION: Moderate to severe constipation. Hyperinflation may be seen in the setting of COPD. Biapical pleural thickening.
[2018-06-26] MEDS ORDERED: Potassium Chloride 20 mEq ER Tab PO STA (12:57)
[2018-06-26] MEDS ORDERED: Potassium Chloride 20 mEq ER Tab PO ONE ×2 (13:12→13:16)
[2018-06-26 13:44] VITALS: BP 123/55; PULSE 65; RESP 16; TEMP 98.1
[2018-06-26 14:01] VITALS: O2SAT 98
--- NOTE | 2018-06-27 17:44 | CARD ---
APPROVED REPORT Date of service: 06/26/2018 EKG Measurement Heart [id number] [id number] <Conclusion> Normal sinus rhythm Normal ECG
== END 2018-06-26 13:38 | disposition home or self-care (01) ==
LOC: C.ER 10:30
DX: K21.9 Gastro-esophageal reflux disease without esophagitis (principal); R10.13 Epigastric pain; I10 Essential (primary) hypertension; E78.00 Pure hypercholesterolemia, unspecified; F17.210 Nicotine dependence, cigarettes, uncomplicated
CPT/HCPCS: 74022; 80053; 81001; 82948; 83690; 84484; 85025; 93005; 96361; 96374; 96375; 99285; J1885; J7030

== ENCOUNTER 2018-07-21 07:18 | Day surgery (SDC) | payer MEDICARE, OTHER ==
[2018-07-21 07:42] VITALS: BMI 27.1
--- NOTE | 2018-07-21 08:09 | CP.SDSHP ---
Same Day Surgery H & P - History Proposed Procedure: EGD Pre-Op Diagnosis: Abdominal pain, nausea - Previous Medical/Surgical History Cardiac: Hypertension Endocrine/Metabolic: Diabetes Misc: Other Comments: Arthritis Previous Surgical History: Cholecystectomy, splenectomy, hysterectomy - Allergies Allergies: Allergies No Known Allergies Allergy (Verified 06/26/18 10:38) - Current Medications Current Medications: See reconciliation sheet - Physical Exam General Appearance: WD WN female in NAD Vital Signs: Vital Signs 07/21/18 07:46 Temperature 97.8 F Pulse Rate 78 Respiratory 16 Rate Blood Pressure 147/69 O2 Sat by Pulse 100 Oximetry Mental Status: Alert & Oriented x3 Neuro: WNL Heart: WNL Lungs: WNL GI: WNL - {Optional Preform as Required} Abdomen: WNL - Impression Impression: Abdominal pain, nausea Pt. Evaluated Today:Candidate for Anesthesia & Procedure: Yes - Date & Time Date: 07/21/18 Time: 08:09 Short Stay Discharge - Short Stay Discharge Admitting Diagnosis/Reason for Visit: DYSPHAGIA, RUQ PAIN Disposition: HOME/ ROUTINE
[2018-07-21] MEDS ORDERED: Propofol 10 mg/ml Inj (20 ML) ONE (08:15)
[2018-07-21] MEDS ORDERED: Labetalol 5mg/ml (4ml) ONE (08:40)
[2018-07-21 09:07] VITALS: TEMP 99.1
[2018-07-21 09:38] VITALS: BP 131/72; PULSE 69; RESP 19; O2SAT 97
== END 2018-07-21 10:50 | disposition home or self-care (01) ==
LOC: C.ENDO 07:18
PROVIDERS: ATTEND Internal Medicine Gastroenterology
DX: R10.11 Right upper quadrant pain (principal); K44.9 Diaphragmatic hernia without obstruction or gangrene; K29.70 Gastritis, unspecified, without bleeding
CPT/HCPCS: 43239; 82948; 88104; 88305; 88313; 88342; J2704

== ENCOUNTER 2018-08-03 00:48 | Inpatient (IN) | payer MEDICARE, OTHER ==
[2018-08-03 00:49] VITALS: BMI 27.1
--- NOTE | 2018-08-03 01:15 | C.PDOC ---
History Of Present Illness patient presents with some chest discomfort since around 9 pm. Pt is a niddm. Dull, aching non radiating discomfort. Also compalins of some left leg tingling , burning sensation worsening since the morning Time Seen by Provider: 08/03/18 01:15 Chief Complaint (Nursing): Chest Pain History Per: Patient History/Exam Limitations: no limitations Onset/Duration Of Symptoms: Hrs (4) Current Symptoms Are (Timing): Still Present Context: Other Severity: Moderate Pain Scale Rating Of: 4 Quality: Dull, Aching, Tightness Associated Symptoms: denies: Nausea Modifying Factors: None Alleviating Factors: None Recent travel outside of the [place]: No Additional History Per: Patient Past Medical History Reviewed: Historical Data, Nursing Documentation, Vital Signs Vital Signs: Last Vital Signs Temp 98.5 F 08/03/18 00:53 Pulse 70 08/03/18 00:53 Resp 16 08/03/18 00:53 BP 132/68 08/03/18 00:53 Pulse Ox 98 08/03/18 00:53 - Medical History PMH: Anxiety, Arthritis, Asthma, Back Problems, COPD, Dementia, Emphysema, Gastritis, GERD, HTN, Hypercholesterolemia, Seizures, Chronic Pain (neck and back) Denies: Anemia, Depression, HIV, Chronic Kidney Disease, Schizophrenia, Sexually Transmitted Disease Surgical History: Appendectomy, Back Surgery, Cholecystectomy - [facility] Procedures COLONOSCOPY (04/22/12) DETOXIFICATION SERVICES FOR SUBSTANCE ABUSE TREATMENT (08/28/17) ESOPHAGOGASTRODUODENOSCOPY [EGD] W/CLOSED BIOPSY (02/04/15) EXCISION OF STOMACH, ENDO, DIAGN (11/11/17) GROUP PSYCHOTHERAPY (11/08/16) INDIVIDUAL PSYCHOTHERAPY, COGNITIVE-BEHAVIORAL (11/08/16) INSERT INFUSION DEV IN R INT JUGULAR VEIN, PERC (11/11/16) INSERTION OF ENDOTRACHEAL AIRWAY INTO TRACHEA, VIA OPENING (11/11/16) RESPIRATORY VENTILATION, 24-96 CONSECUTIVE HOURS (11/11/16) Family History: States: No Known Family Hx - Social History Hx Tobacco Use: Yes Hx Alcohol Use: No Hx Substance Use: No - Immunization History Hx Tetanus Toxoid Vaccination: No Hx Influenza Vaccination: No (06/2017) Hx Pneumococcal Vaccination: No Review Of Systems Constitutional: Negative for: Fever, Chills Eyes: Negative for: Redness ENT: Negative for: Throat Pain Cardiovascular: Positive for: Chest Pain Respiratory: Negative for: Shortness of Breath Gastrointestinal: Negative for: Abdominal Pain Genitourinary: Negative for: Dysuria Musculoskeletal: Negative for: Back Pain Skin: Negative for: Rash Neurological: Negative for: Weakness Psych: Negative for: Anxiety Physical Exam - Physical Exam Appears: Non-toxic, No Acute Distress Skin: Warm, Dry Head: Normacephalic Eye(s): bilateral: Normal Inspection Oral Mucosa: Moist Neck: Supple Chest: Symmetrical Cardiovascular: Rhythm Regular Respiratory: No Rales, No Rhonchi, No Wheezing Gastrointestinal/Abdominal: Soft, No Tenderness, No Distention Back: No CVA Tenderness Extremity: Normal ROM Extremity: Bilateral: Atraumatic, Normal Color And Temperature, Normal ROM Pulses: Left Dorsalis Pedis: Normal, Right Dorsalis Pedis: Normal Neurological/Psych: Oriented x3 Gait: Steady ED Course And Treatment - Laboratory Results Result Diagrams: 08/03/18 02:50 08/03/18 02:50 ECG: Interpreted By Me, Viewed By Me ECG Rhythm: Sinus Rhythm (68), Nonspecific Changes (occ pvc's) O2 Sat by Pulse Oximetry: 98 Pulse Ox Interpretation: Normal - Radiology CXR: Interpreted by Me, Viewed By Me CXR Interpretation: Yes: Other (mild vasc congestion). No: Infiltrates, Fractu re, Cardiomegaly Disposition Discussed With : Mary Pro Comment: accepted the pt on his service and took over the care at 4:38 AM Doctor Will See Patient In The: Hospital Counseled Patient/Family Regarding: Studies Performed, Diagnosis - Disposition Disposition: HOSPITALIZED Disposition Time: 01:15 Condition: FAIR Forms: [facility] (Setswana) - POA Present On Arrival: None - Clinical Impression Clinical Impression: Chest pain, Hypokalemia, Diabetes Decision To Admit - Pt Status Changed To: Hospital Disposition Of: Inpatient - Admit Certification Admit to Inpatient:: After my assessment, the patient will require hospitalization for at least two midnights. This is because of the severity of symptoms shown, intensity of services needed, and/or the medical risk in this patient being treated as an outpatient. - InPatient: Physician Admission Certification: I certify that this patient requires 2 or more midnights of care for the following reason:: After my assessment, the patient will require hospitalization for at least two midnights. This is because of the severity of symptoms shown, intensity of services needed, and/or the medical risk in this patient being treated as an outpatient. - . Bed Request Type: Telemetry Admitting Physician: Mary Pro Patient Diagnosis: Chest pain, Hypokalemia, Diabetes
[2018-08-03] MEDS ORDERED: Aspirin 325 mg EC Tablets PO STA (01:20)
[2018-08-03 03:11] LABS: BASO # 0.1 K/uL (0.0-0.2); EOS # 0.5 K/uL (0.0-0.7); EOS % 4.3 % (0.0-4.0); HEMOGLOBIN 10.7 g/dL (11.0-16.0); LYMPH # 6.1 K/uL (1.0-4.3); LYMPH % 56.6 % (20.0-40.0); MEAN CELL VOLUME 85.1 fL (81.0-99.0); MEAN CORPUSCULAR HEMOGLOBIN 28.1 pg (27.0-31.0); MEAN PLATELET VOLUME 9.5 fL (7.2-11.7); MONO # 0.8 K/uL (0.0-0.8); MONO % 7.1 % (0.0-10.0); NEUT # 3.3 K/uL (1.8-7.0); PLATELET COUNT 195 K/uL (130-400); RBC 3.82 Mil/uL (3.80-5.20); RED CELL DISTRIBUTION WIDTH 16.8 % (11.5-14.5); WHITE BLOOD COUNT 10.7 K/uL (4.8-10.8)
[2018-08-03 03:19] LABS: INR 1.1; PROTHROMBIN TIME 12.3 SECONDS (9.7-12.2)
[2018-08-03 03:28] LABS: ALB/GLOB RATIO 1.2 (1.0-2.1); ALBUMIN 3.5 g/dL (3.5-5.0); ALT/SGPT 34 U/L (9-52); AST/SGOT 34 U/L (14-36); BLOOD UREA NITROGEN 10 mg/dL (7-17); CALCIUM 8.7 mg/dl (8.6-10.4); GFR NON-AFRICAN AMERICAN > 60; LIPASE 79 U/L (23-300)
[2018-08-03 03:43] LABS: B-TYPE NATRIURETIC PEPTIDE 78.6 pg/mL (0-900)
[2018-08-03] MEDS ORDERED: Potassium Chloride 20 mEq ER Tab PO ONE ×2 (04:00→04:02)
[2018-08-03] MEDS ORDERED: Aspirin 325 mg EC Tablets PO ONE (04:00)
[2018-08-03 04:26] LABS: SQUAMOUS EPITHIAL < 1 /hpf (0-5); URINE BACTERIA RARE (<OCC); URINE BILIRUBIN NEGATIVE (NEGATIVE); URINE BLOOD NEGATIVE (NEGATIVE); URINE CLARITY Clear (Clear); URINE COLOR Straw (YELLOW); URINE GLUCOSE (UA) NORMAL (Normal); URINE LEUKOCYTE ESTERASE 1+ Leu/uL (Negative); URINE PROTEIN NEGATIVE (NEGATIVE); URINE UROBILINOGEN NORMAL mg/dL (0.2-1.0)
[2018-08-03] MEDS ORDERED: Pantoprazole 40 mg EC Tab PO STA (07:23)
[2018-08-03 08:45] LABS: EOSINOPHIL 3 % (0-4); LYMPHOCYTE 58 % (20-40); MONOCYTE 4 % (0-10); NEUTROPHIL 31 % (50-75); REACTIVE LYMPHOCYTES 4 % (0-0); TOTAL CELLS COUNTED 100
[2018-08-03 08:47] LABS: PLATELET ESTIMATE NORMAL (NORMAL)
[2018-08-03 08:48] LABS: ANISOCYTOSIS SLIGHT; OVALOCYTES SLIGHT; POIKILOCYTOSIS SLIGHT; TARGET CELLS SLIGHT
[2018-08-03 08:49] LABS: HYPOCHROMIC SLIGHT
[2018-08-03] MEDS: Erythromycin Base 500 mg Tab PO SCH (10:30)
[2018-08-03] MEDS: Potassium Chloride 20 mEq ER Tab PO SCH (10:30)
[2018-08-03] MEDS: Enoxaparin 40 mg Syringe SC SCH (10:30)
[2018-08-03] MEDS: Pantoprazole 40 mg EC Tab PO SCH (10:31)
[2018-08-03] MEDS: guaiFENesin DM 100 mg-10 mg/5 ml UD PO SCH ×3 (10:31→18:44)
[2018-08-03] MEDS ORDERED: Albuterol-Ipratrop 3 mg / 0.5 (3 ml) UD ONE ×2 (10:54→14:40)
[2018-08-03] MEDS: Albuterol-Ipratrop 3 mg / 0.5 (3 ml) UD INH SCH ×2 (10:55→14:16)
--- NOTE | 2018-08-03 13:09 | CP.PCM.CON ---
History of Present Illness - History of Present Illness History of Present Illness: I was asked to see patient by Dr Pro. Patient was seen 08/03/18 1120 Patient is a 63 year old female with HTN hyperhcolesterolemia who presents with chest pain. The patient describes a pressure in the center of the chest which began last night. She initially thought symptoms were GI related however she had persistent symptoms. In ER EKG revealed a PVC. She was hypokalemic. Review of Systems - Constitutional Constitutional: absent: As Per HPI, Anorexia, Chills, Daytime Sleepiness, Excessive Sweating, Fatigue, Fever, Frequent Falls, Headache, Increased Appe tite, Lethargy, Malaise, Night Sweats, Snoring, Sleep Apnea, Weight Gain, Weight Loss, Weakness, Other - EENT Eyes: absent: As Per HPI, Blind Spots, Blurred Vision, Change in Vision, Decreased Night Vision, Diplopia, Discharge, Dry Eye, Exophthalmos, Floaters, Irritation, Itchy Eyes, Loss of Peripheral Vision, Pain, Photophobia, Requires Corrective Lenses, Sees Flashes, Spots in Vision, Tunnel Vision, Other Visual Disturbances, Loss of Vision, Other Ears: absent: As Per HPI, Decreased Hearing, Ear Discharge, Ear Pain, Tinnitus, Abnormal Hearing, Disequilibrium, Dizziness, Other Nose/Mouth/Throat: absent: As Per HPI, Epistaxis, Nasal Congestion, Nasal Discharge, Nasal Obstruction, Nasal Trauma, Nose Pain, Post Nasal Drip, Sinus Pain, Sinus Pressure, Bleeding Gums, Change in Voice, Dental Pain, Dry Mouth, Dysphagia, Halitosis, Hoarsness, Lip Swelling, Mouth Lesions, Mouth Pain, Odynophagia, Sore Throat, Throat Swelling, Tongue Swelling, Facial Pain, Neck Pain, Neck Mass, Other - Cardiovascular Cardiovascular: Chest Pain - Respiratory Respiratory: Dyspnea - Gastrointestinal Gastrointestinal: absent: As Per HPI, Abdominal Pain, Belching, Bloating, Change in Bowel Habits, Change in Stool Character, Coffee Ground Emesis, Constipation, Cramping, Diarrhea, Dyspepsia, Dysphagia, Early Satiety, Excessive Flatus, Fecal Incontinence, Heartburn, Hematemesis, Hematochezia, Loose Stools, Melena, Nausea, Odynophagia, Temesmus, Vomiting, Other - Musculoskeletal Musculoskeletal: absent: As Per HPI, Abnormal Gait, Arthralgias, Atrophy, Back Pain, Deformity, Joint Swelling, Limited Range of Motion, Loss of Height, Muscle Cramps, Muscle Weakness, Myalgias, Neck Pain, Numbness, Radiating Pain into Limb, Stiffness, Tingling, Other - Integumentary Integumentary: absent: As Per HPI, Acne, Alopecia, Bleeding Lesions, Change in Hair, Change in Nails, Change in Pigmentation, Changing Lesions, Dry Skin, Erythema, Furuncle, Hirsutism, Lesions, New Lesions, Non-Healing Lesions, Photosensitivity, Pruritus, Rash, Skin Pain, Skin Ulcer, Sores, Striae, Swelling, Unusual Bruising, Wounds, Jaundice, Other - Neurological Neurological: absent: As Per HPI, Abnormal Gait, Abnormal Hearing, Abnormal Movements, Abnormal Speech, Behavioral Changes, Burning Sensations, Confusion, C onvulsions, Disequilibrium, Dizziness, Numbness, Focal Weakness, Frequent Falls, Headaches, Lack of Coordination, Loss of Vision, Memory Loss, Paresthesias, Radicular Pain, Restless Legs, Sensory Deficit, Syncope, Tingling, Tremor, Vertigo, Weakness, Other Visual Disturbances, Other - Psychiatric Psychiatric: absent: As Per HPI, Abnormal Sleep Pattern, Anhedonia, Anxiety, Auditory Hallucinations, Behavioral Changes, Change in Appetite, Change in Libido, Confusion, Depression, Difficulty Concentrating, Hallucinations, Homicidal Ideation, Hopelessness, Irritability, Memory Loss, Mood Swings, Panic Attacks, Paranoia, Suicidal Ideation, Visual Hallucinations, Tactile Hallucinations, Other - Endocrine Endocrine: absent: As Per HPI, Change in Body Appearance, Change in Libido, Cold Intolorance, Deepening of Voice, Excessive Sweating, Fatigue, Flushing, Heat Intolorance, Increase in Ring/Shoe/Hat Size, Palpitations, Polydipsia, Polyphagia, Polyuria, Other - Hematologic/Lymphatic Hematologic: absent: As Per HPI, Easy Bleeding, Easy Bruising, Lymphadenopathy, Other Past Patient History - Infectious Disease Hx of Infectious Diseases: None - Past Medical History & Family History Past Medical History?: Yes - Past Social History Smoking Status: Heavy Smoker > 10 Cigarettes Daily - CARDIAC Hx Hypercholesterolemia: Yes Hx Hypertension: Yes - PULMONARY Hx Asthma: Yes Hx Chronic Obstructive Pulmonary Disease (COPD): Yes Hx Emphysema: Yes - NEUROLOGICAL Hx Dementia: Yes Hx Seizures: Yes - HEENT Hx HEENT Problems: Yes Hx Difficulty Chewing: Yes Other/Comment: glasses - RENAL Hx Chronic Kidney Disease: No - ENDOCRINE/METABOLIC Hx Endocrine Disorders: Yes Hx Diabetes Mellitus Type 2: Yes - HEMATOLOGICAL/ONCOLOGICAL Hx Anemia: No Hx Human Immunodeficiency Virus (HIV): No - INTEGUMENTARY Hx Dermatological Problems: No - MUSCULOSKELETAL/RHEUMATOLOGICAL Hx Arthritis: Yes - GASTROINTESTINAL Hx Gastritis: Yes - GENITOURINARY/GYNECOLOGICAL Hx Sexually Transmitted Disorders: No - PSYCHIATRIC Hx Anxiety: Yes Hx Depression: No Hx Schizophrenia: No Hx Substance Use: No - SURGICAL HISTORY Hx Appendectomy: Yes Hx Cholecystectomy: Yes - ANESTHESIA Hx Anesthesia: Yes Hx Anesthesia Reactions: No Hx Malignant Hyperthermia: No Meds Allergies/Adverse Reactions: Allergies Allergy/AdvReac Type Severity Reaction Status Date / Time No Known Allergies Allergy Verified 08/03/18 01:08 - Medications Medications: Current Medications Albuterol/Ipratropium (Duoneb 3 Mg/0.5 Mg (3 Ml) Ud) 3 ml INH QID [facility] Last Admin: 08/03/18 10:55 Dose: 3 ml Aspirin (Ecotrin) 81 mg PO DAILY [facility] Last Admin: 08/03/18 10:30 Dose: 81 mg Enoxaparin Sodium (Lovenox) 40 mg SC DAILY [facility] Last Admin: 08/03/18 10:30 Dose: 40 mg Erythromycin (Nir-Tab) 500 mg PO Q12H [facility]; Protocol Last Admin: 08/03/18 10:30 Dose: 500 mg Guaifenesin/Dextromethorphan (Robitussin Dm) 5 ml PO QID [facility] Last Admin: 08/03/18 10:31 Dose: 5 ml Pantoprazole Sodium (Protonix Ec Tab) 40 mg PO DAILY [facility] Last Admin: 08/03/18 10:31 Dose: 40 mg Potassium Chloride (K-Dur 20 Meq Er Tab) 40 meq PO DAILY [facility] Last Admin: 08/03/18 10:30 Dose: 40 meq Physical Exam - Constitutional Appears: Non-toxic - Head Exam Head Exam: NORMAL INSPECTION - Eye Exam Eye Exam: Normal appearance - ENT Exam ENT Exam: Mucous Membranes Moist - Neck Exam Neck exam: Positive for: Full Rom - Respiratory Exam Respiratory Exam: NORMAL BREATHING PATTERN - Cardiovascular Exam Cardiovascular Exam: REGULAR RHYTHM - GI/Abdominal Exam GI & Abdominal Exam: Normal Bowel Sounds - Rectal Exam Rectal Exam: Deferred - Extremities Exam Extremities exam: Positive for: normal inspection. Negative for: pedal edema - Back Exam Back exam: NORMAL INSPECTION - Neurological Exam Neurological exam: Alert, Oriented x3 - Psychiatric Exam Psychiatric exam: Normal Affect - Skin Skin Exam: Normal Color Results - Vital Signs Recent Vital Signs: Last Vital Signs Temp 98 F 08/03/18 09:21 Pulse 57 L 08/03/18 09:21 Resp 18 08/03/18 09:21 BP 148/79 08/03/18 09:21 Pulse Ox 98 08/03/18 09:21 - Labs Result Diagrams: 08/03/18 02:50 08/03/18 02:50 Labs: Laboratory Results - last 24 hr 08/03/18 08/03/18 08/03/18 01:09 02:50 02:50 WBC 10.7 RBC 3.82 Hgb 10.7 L Hct 32.5 L MCV 85.1 MCH 28.1 MCHC 33.0 RDW 16.8 H Plt Count 195 MPV 9.5 Neut % (Auto) 31.0 L Lymph % (Auto) 56.6 H Carver % (Auto) 7.1 Eos % (Auto) 4.3 H Baso % (Auto) 1.0 Neut # (Auto) 3.3 Lymph # (Auto) 6.1 H Carver # (Auto) 0.8 Eos # (Auto) 0.5 Baso # (Auto) 0.1 Neutrophils % (Manual) 31 L Lymphocytes % (Manual) 58 H Reactive Lymphs % 4 H Monocytes % (Manual) 4 Eosinophils % (Manual) 3 Platelet Estimate Normal Hypochromasia (manual) Slight Poikilocytosis (manual Slight Anisocytosis (manual) Slight Target Cells Slight Ovalocytes Slight PT 12.3 H INR 1.1 APTT 30 Sodium Potassium Chloride Carbon Dioxide Anion Gap BUN Creatinine Est GFR ( Amer) Est GFR (Non-Af Amer) POC Glucose (mg/dL) 80 Random Glucose Calcium Total Bilirubin AST ALT Alkaline Phosphatase Total Creatine Kinase CK-MB (Mass) Troponin I NT-Pro-B Natriuret Pep Total Protein Albumin Globulin Albumin/Globulin Ratio Lipase Urine Color Urine Clarity Urine pH Ur Specific [place] Urine Protein Urine Glucose (UA) Urine Ketones Urine Blood Urine Nitrate Urine Bilirubin Urine Urobilinogen Ur Leukocyte Esterase Urine WBC (Auto) Urine RBC (Auto) Ur Squamous Epith Cells Urine Bacteria 08/03/18 08/03/18 08/03/18 02:50 04:16 07:05 WBC RBC Hgb Hct MCV MCH MCHC RDW Plt Count MPV Neut % (Auto) Lymph % (Auto) Carver % (Auto) Eos % (Auto) Baso % (Auto) Neut # (Auto) Lymph # (Auto) Carver # (Auto) Eos # (Auto) Baso # (Auto) Neutrophils % (Manual) Lymphocytes % (Manual) Reactive Lymphs % Monocytes % (Manual) Eosinophils % (Manual) Platelet Estimate Hypochromasia (manual) Poikilocytosis (manual Anisocytosis (manual) Target Cells Ovalocytes PT INR APTT Sodium 138 Potassium 2.8 L Chloride 104 Carbon Dioxide 27 Anion Gap 11 BUN 10 Creatinine 0.6 L Est GFR ( Amer) > 60 Est GFR (Non-Af Amer) > 60 POC Glucose (mg/dL) Random Glucose 92 Calcium 8.7 Total Bilirubin 0.5 AST 34 ALT 34 Alkaline Phosphatase 48 Total Creatine Kinase Cancelled CK-MB (Mass) Cancelled Troponin I < 0.0120 Cancelled NT-Pro-B Natriuret Pep 78.6 Total Protein 6.4 Albumin 3.5 Globulin 2.9 Albumin/Globulin Ratio 1.2 Lipase 79 Urine Color Straw Urine Clarity Clear Urine pH 6.0 Ur Specific [place] 1.003 Urine Protein Negative Urine Glucose (UA) Normal Urine Ketones Negative Urine Blood Negative Urine Nitrate Negative Urine Bilirubin Negative Urine Urobilinogen Normal Ur Leukocyte Esterase 1+ H Urine WBC (Auto) 7 H Urine RBC (Auto) 1 Ur Squamous Epith Cells < 1 Urine Bacteria Rare - EKG Data EKG Interpreted by: Myself EKG shows normal: Sinus rhythm Assessment & Plan (1) Chest pain Assessment and Plan: recommend checking cardiac enzymes x 3. recommend echocardiogram. If patient rules out for CT recommend outpatient stress test Status: Acute (2) Diabetes Assessment and Plan: risk factor for CAD. will check echocardiogram Status: Acute (3) Hypokalemia Assessment and Plan: replete K. this can cause PVCs Status: Acute (4) Hypertension Status: Chronic
--- NOTE | 2018-08-03 15:59 | RAD ---
Date of service: 08/03/2018 PROCEDURE: CHEST RADIOGRAPH, 1 VIEW HISTORY: chest pain COMPARISON: 05/17/2018 FINDINGS: LUNGS: Clear. PLEURA: No pneumothorax or pleural fluid seen. CARDIOVASCULAR: No aortic atherosclerotic calcification present. Normal. OSSEOUS STRUCTURES: No significant abnormalities. VISUALIZED UPPER ABDOMEN: Normal. OTHER FINDINGS: None. IMPRESSION: No active disease.
--- NOTE | 2018-08-03 16:29 | CT ---
Date of service: 08/03/2018 PROCEDURE: CT HEAD WITHOUT CONTRAST. HISTORY: Headache COMPARISON: Comparison made with prior study dated 11/28/2017. TECHNIQUE: Axial computed tomography images were obtained through the head/brain without intravenous contrast. Radiation dose: Total exam DLP = 1066.71 mGy-cm. This CT exam was performed using one or more of the following dose reduction techniques: Automated exposure control, adjustment of the mA and/or kV according to patient size, and/or use of iterative reconstruction technique. FINDINGS: HEMORRHAGE: No acute parenchymal, subarachnoid nor extra-axial hemorrhage.. BRAIN: Mild chronic periventricular white matter ischemic changes are present. Moderate generalized volume loss. VENTRICLES: No obstructive hydrocephalus. CALVARIUM: There are no acute calvarial fractures. PARANASAL SINUSES: Unremarkable as visualized. No significant inflammatory changes. MASTOID AIR CELLS: Unremarkable as visualized. No inflammatory changes. OTHER FINDINGS: None. IMPRESSION: No acute intracranial hemorrhage. Mild chronic periventricular white matter ischemic changes.. Moderate generalized volume loss
[2018-08-03] MEDS ORDERED: Albuterol-Ipratrop 3 mg / 0.5 (3 ml) UD INH SCH (20:00)
[2018-08-03] MEDS ORDERED: Pneumococcal 23-Valent Vaccine IM ONE (21:31)
[2018-08-04 01:50] VITALS: RESP 20
[2018-08-04 08:22] VITALS: TEMP 98.5; O2SAT 100
[2018-08-04 08:28] VITALS: PULSE 53
--- NOTE | 2018-08-04 09:51 | HP ---
HISTORY OF PRESENT ILLNESS: The patient presented to the hospital with chief complaint of chest pain. Patient came to the ER, advised admission. The patient is a smoker. PHYSICAL EXAMINATION: GENERAL: The patient is awake, alert, and oriented. VITAL SIGNS: Temperature 98, pulse 90. HEENT: Within normal limits. NECK: Supple. CHEST: Symmetrical. HEART: Regular. ABDOMEN: Soft. EXTREMITIES: No edema. ASSESSMENT AND PLAN: The patient suffers from acute coronary syndrome. The patient is to bed rest, supportive care. Mary Pro MD
[2018-08-04 10:32] VITALS: BP 156/88
[2018-08-04] MEDS: Erythromycin Base 500 mg Tab PO SCH (10:33)
[2018-08-04] MEDS: Pantoprazole 40 mg EC Tab PO SCH (10:33)
[2018-08-04] MEDS: Potassium Chloride 20 mEq ER Tab PO SCH (10:33)
[2018-08-04] MEDS: guaiFENesin DM 100 mg-10 mg/5 ml UD PO SCH (10:33)
[2018-08-04] MEDS: Enoxaparin 40 mg Syringe SC SCH (10:34)
[2018-08-04 11:28] LABS: BASO # 0.1 K/uL (0.0-0.2); BASO % 1.9 % (0.0-2.0); EOS # 0.2 K/uL (0.0-0.7); EOS % 3.5 % (0.0-4.0); HEMOGLOBIN 12.3 g/dL (11.0-16.0); LYMPH # 2.8 K/uL (1.0-4.3); LYMPH % 41.4 % (20.0-40.0); MEAN CELL VOLUME 85.5 fL (81.0-99.0); MEAN CORPUSCULAR HEMOGLOBIN 27.6 pg (27.0-31.0); MEAN CORPUSCULAR HGB CONC 32.2 g/dL (33.0-37.0); MEAN PLATELET VOLUME 10.9 fL (7.2-11.7); MONO # 0.5 K/uL (0.0-0.8); NEUT % 45.2 % (50.0-75.0); NRBC % 0.1 % (0.0-2.0); RBC 4.45 Mil/uL (3.80-5.20); WHITE BLOOD COUNT 6.7 K/uL (4.8-10.8)
[2018-08-04 11:37] LABS: BLOOD UREA NITROGEN 8 mg/dL (7-17); CALCIUM 9.4 mg/dl (8.6-10.4); GFR NON-AFRICAN AMERICAN > 60
[2018-08-04 11:47] LABS: CK-MB 0.56 ng/mL (0.0-3.38)
--- NOTE | 2018-08-04 14:23 | CP.PCM.PN ---
Subjective - Date & Time of Evaluation Date of Evaluation: 08/04/18 Time of Evaluation: 14:20 - Subjective Subjective: PGY3 Note for Dr. Galan THis patient decided to AMA before I had time to finish her discharge paperwork/instructions. Her prescriptions were printed, however there was followup blood work and studies to discuss with the patient. She was urged to followup these results with Dr. Galan as an outpatient. When she was seen in the morning she had no complaints, and stated he wanted to go home; denies pedersen, cp, sob, abdominal pain, n/v/d, dysuria/freq/urg or lower extremity pain/swelling. Objective - Vital Signs/Intake and Output Vital Signs (last 24 hours): Temp Pulse Resp BP Pulse Ox 98.5 F 53 L 20 156/88 H 100 08/04/18 07:10 08/04/18 10:32 08/04/18 07:10 08/04/18 10:32 08/04/18 07:10 - Labs Labs: 08/04/18 11:17 08/04/18 11:17 PT 12.3 SECONDS (9.7-12.2) H 08/03/18 02:50 INR 1.1 08/03/18 02:50 APTT 30 SECONDS (21-34) 08/03/18 02:50 - Head Exam Head Exam: ATRAUMATIC - Eye Exam Eye Exam: EOMI, PERRL - ENT Exam ENT Exam: Mucous Membranes Moist - Neck Exam Neck Exam: Full ROM. absent: Lymphadenopathy - Respiratory Exam Respiratory Exam: Clear to Ausculation Bilateral, NORMAL BREATHING PATTERN. absent: Rales, Rhonchi, Wheezes - Cardiovascular Exam Cardiovascular Exam: REGULAR RHYTHM, +S1, +S2 - GI/Abdominal Exam GI & Abdominal Exam: Soft, Normal Bowel Sounds - Extremities Exam Extremities Exam: Full ROM. absent: Calf Tenderness - Back Exam Back Exam: NORMAL INSPECTION. absent: CVA tenderness (L), CVA tenderness (R) - Neurological Exam Neurological Exam: Alert, Awake, Oriented x3 - Psychiatric Exam Psychiatric exam: Normal Affect - Skin Skin Exam: Warm Assessment and Plan - Assessment and Plan (Free Text) Assessment: 63yo F admitted for chest pain r/o ACS Chest Pain r/o ACS -Trops negative x 2, no more chest pain, no changes in EKG -echo not read yet; patient told to f/u results Hypokalemia -k 3.2 on AMA -told to follow up The patient decided to leave against medical advice and was told that the risk of living involved , [place], CVA, and permanent disability Ryley Rodriguez PGY3
[2018-08-05] MEDS ORDERED: Influenza Vaccine 60 MCG/0.5 ML SYR (3 yr & up) IM ONE (10:00)
[2018-08-05] MEDS ORDERED: Pneumococcal 23-Valent Vaccine IM ONE (10:00)
--- NOTE | 2018-08-05 20:16 | CARD ---
APPROVED REPORT Date of service: 08/04/2018 EXAM: Two-dimensional and M-mode echocardiogram with Doppler and color Doppler. Other Information Quality : GoodRhythm : 2D DIMENSIONS IVSd1.1 (0.7-1.1cm)LVDd4.3 (3.9-5.9cm) PWd1.0 (0.7-1.1cm)LA Qhalnc29 (18-58mL) LVDs2.6 (2.5-4.0cm)FS (%) 40.7 % LVEF (%)71.8 (>50%)LVEF (Conner's)65.36 % M-Mode DIMENSIONS Left Atrium (MM)4.30 (2.5-4.0cm)IVSd0.98 (0.7-1.1cm) Aortic Root3.14 (2.2-3.7cm)LVDd4.59 (4.0-5.6cm) Aortic Cusp Exc.2.37 (1.5-2.0cm)PWd0.90 (0.7-1.1cm) FS (%) 45 %LVDs2.50 (2.0-3.8cm) LVEF (%)77 (>50%) Mitral Valve MV E Bltwrvto27.1cm/sMV A Nhmpdjgf75.9cm/sE/A ratio1.3 TDI Lateral E' Peak V7.51cm/sMedial E' Peak V5.06cm/sE/Lateral E'10.1 E/Medial E'15.0 Tricuspid Valve TR Peak Hnqmcbpd499xd/sTR Peak Gr.72zyHpXDRZ14vwUv LEFT VENTRICLE The left ventricle is normal size. There is normal left ventricular wall thickness. Left ventricle systolic function is normal. The Ejection Fraction is >70%. There is normal LV segmental wall motion. The left ventricular diastolic function is normal. RIGHT VENTRICLE The right ventricle is normal size. There is normal right ventricular wall thickness. The right ventricular systolic function is normal. ATRIA The left atrium size is normal. The right atrium size is normal. The interatrial septum is intact with no evidence for an atrial septal defect. AORTIC VALVE The aortic valve is normal in structure. No aortic regurgitation is present. There is no aortic valvular stenosis. MITRAL VALVE The mitral valve is normal in structure. There is no evidence of mitral valve prolapse. There is no mitral valve stenosis. Mitral regurgitation is mild. TRICUSPID VALVE The tricuspid valve is normal in structure. There is mild tricuspid regurgitation. Right ventricular systolic pressure is estimated at 30-40 mmHg. There is mild pulmonary hypertension. PULMONIC VALVE The pulmonic valve is not well visualized. There is mild pulmonic valvular regurgitation. GREAT VESSELS The aortic root is normal in size. PERICARDIAL EFFUSION There is no significant pericardial effusion. <Conclusion> Left ventricle systolic function is normal. The Ejection Fraction is >70%. No aortic regurgitation is present. Mitral regurgitation is mild. There is mild tricuspid regurgitation. There is mild pulmonary hypertension. There is mild pulmonic valvular regurgitation.
== END 2018-08-04 12:39 | disposition left against medical advice (07) | DRG 313 ==
LOC: C.ER 00:48 → C.9E 04:37 → C.6T 18:13
PROVIDERS: ADMIT Internal Medicine Pulmonary Disease; ATTEND Internal Medicine Pulmonary Disease
DX: R07.89 Other chest pain (principal); E87.6 Hypokalemia; F17.200 Nicotine dependence, unspecified, uncomplicated; J43.9 Emphysema, unspecified; J44.9 Chronic obstructive pulmonary disease, unspecified; Z79.84 Long term (current) use of oral hypoglycemic drugs; I10 Essential (primary) hypertension; E11.9 Type 2 diabetes mellitus without complications; E78.00 Pure hypercholesterolemia, unspecified

== ENCOUNTER 2018-08-10 23:24 | Observation (INO) | payer MEDICARE, OTHER ==
[2018-08-10 23:24] VITALS: BMI 27.1
[2018-08-10] MEDS ORDERED: Aspirin 325 mg EC Tablets PO STA (23:48)
--- NOTE | 2018-08-10 23:48 | C.PDOC ---
History Of Present Illness 63 year old female with PMHx of non insulin dependent DM presents to the ED c/o dull aching non radiating chest discomfort and mild mis epigastric abdominal pain. Patient was recently admitted with a negative work up. While being adm itted patient was seen by Dr. Farmer, patient had an echocardiogram done on 08/03. Patient's echocardiogram showed left ventricular systolic function was normal, EF 70%, mild MR TR, mild pulmonary HTN and pulmonary valve regurgitation. Patient denies fever, chills, SOB, palpitations, headache, wea kness, numbness, nausea, vomit, diarrhea. Time Seen by Provider: 08/10/18 23:47 Chief Complaint (Nursing): Chest Pain History Per: Patient History/Exam Limitations: no limitations Onset/Duration Of Symptoms: Days Current Symptoms Are (Timing): Still Present Context: Other Severity: Moderate Pain Scale Rating Of: 4 Quality: Dull, Aching Modifying Factors: None Alleviating Factors: None Recent travel outside of the [place]: No Additional History Per: Patient Past Medical History Reviewed: Historical Data, Nursing Documentation, Vital Signs Vital Signs: Last Vital Signs Temp 98.3 F 08/10/18 23:32 Pulse 94 H 08/10/18 23:32 Resp 20 08/10/18 23:32 BP 171/106 H 08/10/18 23:32 Pulse Ox 96 08/10/18 23:32 - Medical History PMH: Anxiety, Arthritis, Asthma, Back Problems, COPD, Dementia, Emphysema, Gastritis, GERD, HTN, Hypercholesterolemia, Seizures, Chronic Pain (neck and back) Denies: Anemia, Depression, HIV, Chronic Kidney Disease, Schizophrenia, Sexually Transmitted Disease Surgical History: Appendectomy, Back Surgery, Cholecystectomy - [facility] Procedures COLONOSCOPY (04/22/12) DETOXIFICATION SERVICES FOR SUBSTANCE ABUSE TREATMENT (08/28/17) ESOPHAGOGASTRODUODENOSCOPY [EGD] W/CLOSED BIOPSY (02/04/15) EXCISION OF STOMACH, ENDO, DIAGN (11/11/17) GROUP PSYCHOTHERAPY (11/08/16) INDIVIDUAL PSYCHOTHERAPY, COGNITIVE-BEHAVIORAL (11/08/16) INSERT INFUSION DEV IN R INT JUGULAR VEIN, PERC (11/11/16) INSERTION OF ENDOTRACHEAL AIRWAY INTO TRACHEA, VIA OPENING (11/11/16) RESPIRATORY VENTILATION, 24-96 CONSECUTIVE HOURS (11/11/16) Family History: States: No Known Family Hx - Social History Hx Tobacco Use: Yes Hx Alcohol Use: No Hx Substance Use: No - Immunization History Hx Tetanus Toxoid Vaccination: No Hx Influenza Vaccination: No (06/2017) Hx Pneumococcal Vaccination: No Review Of Systems Constitutional: Negative for: Fever, Chills Eyes: Negative for: Vision Change ENT: Negative for: Throat Pain Cardiovascular: Positive for: Chest Pain. Negative for: Palpitations Respiratory: Negative for: Cough, Shortness of Breath Gastrointestinal: Positive for: Abdominal Pain. Negative for: Nausea, Vomiting, Diarrhea Genitourinary: Negative for: Dysuria, Hematuria Musculoskeletal: Negative for: Back Pain Skin: Negative for: Rash Neurological: Negative for: Headache Psych: Positive for: Anxiety Physical Exam - Physical Exam Appears: Non-toxic, No Acute Distress Skin: Warm, Dry Head: Normacephalic Eye(s): bilateral: Normal Inspection Oral Mucosa: Moist Neck: Supple Chest: Symmetrical Cardiovascular: Rhythm Regular Respiratory: No Rales, No Rhonchi, No Wheezing Gastrointestinal/Abdominal: Soft, Tenderness (mild mid epigastric), No Guarding, No Rebound Back: Normal Inspection Extremity: Normal ROM Extremity: Bilateral: Atraumatic, Normal Color And Temperature, Normal ROM Pulses: Left Dorsalis Pedis: Normal, Right Dorsalis Pedis: Normal Neurological/Psych: Oriented x3, Normal Speech, Normal Cognition Gait: Steady ED Course And Treatment - Laboratory Results Result Diagrams: 08/11/18 00:13 08/11/18 00:13 ECG: Interpreted By Me, Viewed By Me ECG Rhythm: Sinus Rhythm (95), Nonspecific Changes O2 Sat by Pulse Oximetry: 96 (ON RA) Pulse Ox Interpretation: Normal - Radiology CXR: Interpreted by Me, Viewed By Me CXR Interpretation: Yes: Other (unchanged from 08/03/18). No: Infiltrates, Fracture, Pnemothorax Progress Note: Plan: - EKG. - Labs. - Aspirin 325 mg PO. - UA Disposition Discussed With : Mary Pro Comment: accepted the ot on h is service and took over the care at 3:48 AM Doctor Will See Patient In The: Hospital Counseled Patient/Family Regarding: Studies Performed, Diagnosis - Disposition Referrals: Vera Aguero MD [Primary Care Provider] - Disposition: HOME/ ROUTINE Disposition Time: 23:48 Condition: FAIR Forms: [employer] ([place]) - POA Present On Arrival: Poor Glycemic Control - Clinical Impression Clinical Impression: Chest pain, Hyperglycemia - Scribe Statement The provider has reviewed the documentation as recorded by the Scribe Moose Lafleur All medical record entries made by the Scribe were at my direction and personally dictated by me. I have reviewed the chart and agree that the record accurately reflects my personal performance of the history, physical exam, medical decision making, and the department course for this patient. I have also personally directed, reviewed, and agree with the discharge instructions and disposition. Decision To Admit - Pt Status Changed To: Hospital Disposition Of: Observation - . Bed Request Type: Telemetry Admitting Physician: Mary Pro Patient Diagnosis: Chest pain, Hyperglycemia
[2018-08-11 00:28] LABS: SQUAMOUS EPITHIAL 3 /hpf (0-5); URINE BILIRUBIN NEGATIVE (NEGATIVE); URINE BLOOD NEGATIVE (NEGATIVE); URINE CLARITY Clear (Clear); URINE COLOR Straw (YELLOW); URINE GLUCOSE (UA) NORMAL (Normal); URINE LEUKOCYTE ESTERASE NEG Leu/uL (Negative); URINE PROTEIN NEGATIVE (NEGATIVE); URINE UROBILINOGEN NORMAL mg/dL (0.2-1.0)
[2018-08-11 00:35] LABS: BASO # 0.1 K/uL (0.0-0.2); BASO % 1.1 % (0.0-2.0); EOS # 0.1 K/uL (0.0-0.7); EOS % 1.6 % (0.0-4.0); HEMOGLOBIN 12.2 g/dL (11.0-16.0); LYMPH # 3.5 K/uL (1.0-4.3); LYMPH % 44.8 % (20.0-40.0); MEAN CELL VOLUME 85.4 fL (81.0-99.0); MEAN CORPUSCULAR HEMOGLOBIN 27.8 pg (27.0-31.0); MEAN CORPUSCULAR HGB CONC 32.6 g/dL (33.0-37.0); MEAN PLATELET VOLUME 10.7 fL (7.2-11.7); MONO # 0.6 K/uL (0.0-0.8); MONO % 7.8 % (0.0-10.0); NEUT # 3.5 K/uL (1.8-7.0); NEUT % 44.7 % (50.0-75.0); NRBC % 0.2 % (0.0-2.0); RBC 4.37 Mil/uL (3.80-5.20); RED CELL DISTRIBUTION WIDTH 17.1 % (11.5-14.5); WHITE BLOOD COUNT 7.8 K/uL (4.8-10.8)
[2018-08-11 00:43] LABS: ALB/GLOB RATIO 1.3 (1.0-2.1); ALBUMIN 4.5 g/dL (3.5-5.0); ALT/SGPT 43 U/L (9-52); AST/SGOT 47 U/L (14-36); BLOOD UREA NITROGEN 8 mg/dL (7-17); CALCIUM 10.2 mg/dl (8.6-10.4); GFR NON-AFRICAN AMERICAN > 60
[2018-08-11 00:50] LABS: B-TYPE NATRIURETIC PEPTIDE 72.6 pg/mL (0-900)
[2018-08-11] MEDS ORDERED: Morphine 4 MG/ML VIAL IV ONE (04:08)
[2018-08-11 08:45] VITALS: RESP 20
[2018-08-11 08:49] LABS: CK-MB 0.71 ng/mL (0.0-3.38)
--- NOTE | 2018-08-11 09:07 | CP.PCM.PN ---
Subjective - Date & Time of Evaluation Date of Evaluation: 08/11/18 Time of Evaluation: 09:06 - Subjective Subjective: 63 year old female with PMHx of non insulin dependent DM presents to the ED c/o dull aching non radiating chest discomfort and mild mis epigastric abdominal pain. Patient was recently admitted with a negative work up. While being admitt ed patient was seen by Dr. Farmer, patient had an echocardiogram done on 08/03. Patient's echocardiogram showed left ventricular systolic function was normal, EF 70%, mild MR TR, mild pulmonary HTN and pulmonary valve regurgitation. Patient denies fever, chills, SOB, palpitations, headache, weakne ss, numbness, nausea, vomit, diarrhea. Patient seen and examined at bedside. She is tolerating her diet. Currently denies any chest pain (Trop neg x2). She reports a hx of GERD and reports her stomach has been mildly tender lately. She ran out of pepcid at home. Denies f/c, chest pain, SOB, n/v, d/c, LE edema. 12-point ROS is otherwise negative for any acute complaints. Objective - Vital Signs/Intake and Output Vital Signs (last 24 hours): Temp Pulse Resp BP Pulse Ox 98.5 F 97 H 20 151/80 H 97 08/11/18 08:44 08/11/18 08:44 08/11/18 08:44 08/11/18 08:44 08/11/18 08:44 - Medications Medications: Current Medications Heparin Sodium (Porcine) (Heparin) 5,000 units SC Q12 FLAKO - Labs Labs: 08/11/18 00:13 08/11/18 00:13 - Additional Findings Additional findings: - Constitutional Appears: Non-toxic, No Acute Distress - Head Exam Head Exam: ATRAUMATIC, NORMAL INSPECTION - Eye Exam Eye Exam: EOMI, Normal appearance - Respiratory Exam Respiratory Exam: NORMAL BREATHING PATTERN. absent: Rales, Wheezes - Cardiovascular Exam Cardiovascular Exam: Regular Rate, +S1, +S2 - GI/Abdominal Exam GI & Abdominal Exam: Soft, Normal Bowel Sounds, Tenderness (mild mid-epigastric TTP) - Extremities Exam Extremities Exam: Full ROM, Normal Inspection. absent: Pedal Edema, Tenderness - Back Exam Back Exam: NORMAL INSPECTION. absent: CVA tenderness (L), CVA tenderness (R) - Neurological Exam Neurological Exam: Alert, Awake, Oriented x3 - Psychiatric Exam Psychiatric exam: Normal Affect, Normal Mood - Skin Skin Exam: Dry, Intact, Normal Color, Warm Assessment and Plan - Assessment and Plan (Free Text) Assessment: 63yo F admitted for chest pain r/o ACS Chest Pain r/o ACS 08/11: f/u 3rd troponin / EKG. If negative, patient is stable for discharge. -Trops negative x 2, no more chest pain, no changes in EKG -CKMB negative x1 -patient seen in ED with same complaints on 08/03/18. Workup was negative. -EKG with nsr, HR 95, no st changes. -Echo from 08/03 showed EF 70%, mild pulm HTN. see full report. -UC negative Hypokalemia -k 3.5 - KCl 10 Q4H x4 doses. GERD -Protonix 40mg PO qD Disposition: f/u 3rd troponin. If negative, patient is stable for discharge. Case discussed with attending. All medical management as per Dr. Carlton Pro.
--- NOTE | 2018-08-11 09:28 | RAD ---
Date of service: 08/11/2018 PROCEDURE: CHEST RADIOGRAPH, 1 VIEW HISTORY: chest pain COMPARISON: 08/03/2018 FINDINGS: LUNGS: The lungs are well inflated and clear. PLEURA: No pneumothorax or pleural effusion. CARDIOVASCULAR: The heart is normal in size. No aortic atherosclerotic calcifications present. OSSEOUS STRUCTURES: Within normal limits for the patient's age. VISUALIZED UPPER ABDOMEN: Normal. OTHER FINDINGS: None. IMPRESSION: No active pulmonary disease.
--- NOTE | 2018-08-11 09:44 | CARD ---
APPROVED REPORT Date of service: 08/10/2018 EKG Measurement Heart [id number] 162P [id number] <Conclusion> Normal sinus rhythm Nonspecific T wave abnormality Abnormal ECG
[2018-08-11] MEDS: Potassium Chloride 10 mEq ER Tab PO SCH ×4 (10:24→17:41)
[2018-08-11] MEDS ORDERED: Pantoprazole 40 mg EC Tab PO SCH (10:30)
[2018-08-11 11:17] LABS: HEMOGLOBIN 12.7 g/dL (11.0-16.0); MEAN CELL VOLUME 85.6 fL (81.0-99.0); MEAN CORPUSCULAR HEMOGLOBIN 28.3 pg (27.0-31.0); MEAN PLATELET VOLUME 10.7 fL (7.2-11.7); RBC 4.49 Mil/uL (3.80-5.20); RED CELL DISTRIBUTION WIDTH 17.6 % (11.5-14.5)
[2018-08-11 11:52] LABS: ALB/GLOB RATIO 1.3 (1.0-2.1); ALBUMIN 4.6 g/dL (3.5-5.0); ALT/SGPT 44 U/L (9-52); AST/SGOT 45 U/L (14-36); BLOOD UREA NITROGEN 7 mg/dL (7-17); CALCIUM 9.8 mg/dl (8.6-10.4); GFR NON-AFRICAN AMERICAN > 60
[2018-08-11 12:28] LABS: LYMPH # 2.4 K/uL (1.0-4.3); MONO # 0.4 K/uL (0.0-0.8); NEUT # 6.3 K/uL (1.8-7.0)
[2018-08-11] MEDS ORDERED: Influenza Vaccine 60 MCG/0.5 ML SYR (3 yr & up) IM ONE (13:22)
[2018-08-11 16:15] VITALS: BP 142/73; PULSE 55; TEMP 97.9; O2SAT 98
[2018-08-11 17:15] LABS: CK-MB 0.82 ng/mL (0.0-3.38)
--- NOTE | 2018-08-12 08:27 | HP ---
HISTORY OF PRESENT ILLNESS: The patient is a 63-year-old female admitted to hospital with chest pain. Patient came to the ER, advised admission. PHYSICAL EXAMINATION: GENERAL: The patient is awake, alert, and oriented. VITAL SIGNS: Temperature 98, pulse 90. HEENT: Within normal limits. NECK: Supple. CHEST: Symmetrical. HEART: Regular. ABDOMEN: Soft. EXTREMITIES: No edema. IMPRESSION: Patient suffers from chest pain. The patient is on bedrest, supportive care. Mary Pro MD
[2018-08-12] MEDS ORDERED: Pneumococcal 23-Valent Vaccine IM ONE (12:00)
[2018-08-12] MEDS ORDERED: Influenza Vaccine 60 MCG/0.5 ML SYR (3 yr & up) IM ONE (12:00)
== END 2018-08-11 19:36 | disposition home or self-care (01) ==
LOC: C.ER 23:24 → SUPCPDRO 23:24 → C.9E 08-11 03:47 → C.5S 08-11 06:50
PROVIDERS: ADMIT Internal Medicine Pulmonary Disease; ATTEND Internal Medicine Pulmonary Disease
DX: R07.89 Other chest pain (principal); E87.6 Hypokalemia; K21.9 Gastro-esophageal reflux disease without esophagitis; E11.65 Type 2 diabetes mellitus with hyperglycemia; E78.00 Pure hypercholesterolemia, unspecified; F03.90 Unspecified dementia, unspecified severity, without behavioral disturbance, psychotic disturbance, mood disturbance, and anxiety; I10 Essential (primary) hypertension; J43.9 Emphysema, unspecified; Z87.891 Personal history of nicotine dependence; Z79.84 Long term (current) use of oral hypoglycemic drugs
CPT/HCPCS: 36415; 71045; 80053; 81001; 82948; 83735; 83880; 84100; 84484; 85025; 90674; 93005; 96374; C9113; G0008; G0378; J1644; J1885

== ENCOUNTER 2018-08-12 09:42 | Emergency (ER) | payer MEDICARE, OTHER ==
[2018-08-12 09:42] VITALS: BMI 27.1
--- NOTE | 2018-08-12 10:24 | C.PDOC ---
History Of Present Illness 63 y/o F c PMHx HTN, DM p/w stool from vagina this morning. Patient states she went to bathroom this morning and noticed that after she wiped from urination, there was stool on the tissue. She wiped again and again until the stool was gone. She notes that she was wiping anteriorly, not the anus. States this has never happened before. Also reports epigastric pain x 5 days. Denies fever, chest pain, nausea, vomiting, diarrhea. Time Seen by Provider: 08/12/18 09:56 Chief Complaint (Nursing): Abdominal Pain Past Medical History Vital Signs: Last Vital Signs Temp 99 F 08/12/18 09:49 Pulse 80 08/12/18 09:49 Resp 18 08/12/18 09:49 BP 168/93 H 08/12/18 09:49 Pulse Ox 97 08/12/18 09:49 - Medical History PMH: Anxiety, Arthritis, Asthma, Back Problems, COPD, Dementia, Emphysema, Gastritis, GERD, HTN, Hypercholesterolemia, Seizures, Chronic Pain (neck and back) Denies: Anemia, Depression, HIV, Chronic Kidney Disease, Schizophrenia, Sexually Transmitted Disease Surgical History: Appendectomy, Back Surgery, Cholecystectomy - [facility] Procedures COLONOSCOPY (04/22/12) DETOXIFICATION SERVICES FOR SUBSTANCE ABUSE TREATMENT (08/28/17) ESOPHAGOGASTRODUODENOSCOPY [EGD] W/CLOSED BIOPSY (02/04/15) EXCISION OF STOMACH, ENDO, DIAGN (11/11/17) GROUP PSYCHOTHERAPY (11/08/16) INDIVIDUAL PSYCHOTHERAPY, COGNITIVE-BEHAVIORAL (11/08/16) INSERT INFUSION DEV IN R INT JUGULAR VEIN, PERC (11/11/16) INSERTION OF ENDOTRACHEAL AIRWAY INTO TRACHEA, VIA OPENING (11/11/16) RESPIRATORY VENTILATION, 24-96 CONSECUTIVE HOURS (11/11/16) Family History: States: Unknown Family Hx - Social History Hx Tobacco Use: Yes Hx Alcohol Use: No Hx Substance Use: No - Immunization History Hx Tetanus Toxoid Vaccination: No Hx Influenza Vaccination: No Hx Pneumococcal Vaccination: No Review Of Systems Except As Marked, All Systems Reviewed And Found Negative. Constitutional: Negative for: Fever Cardiovascular: Negative for: Chest Pain Physical Exam - Physical Exam Additional Physical Exam Comments: Constitutional: No acute distress. Head: Normocephalic. Atraumatic. Eyes: PERRL. ENT: Moist mucous membranes. Neck: Supple. Cardiovascular: Regular rate. Radial pulse 2+ bilaterally. Chest: No tenderness. Respiratory: Clear to auscultation bilaterally. GI: Soft. Mild epigastric tenderness Back: No CVA tenderness. Musculoskeletal: No tenderness or swelling of extremities. Skin: No rash. Neurologic: Alert, no focal deficit ED Course And Treatment - Laboratory Results Result Diagrams: 08/12/18 10:56 08/12/18 10:56 O2 Sat by Pulse Oximetry: 97 (RA) Pulse Ox Interpretation: Normal Medical Decision Making Medical Decision Making: Plan: CT abd/pelvis, UA, Blood work ordered. Patient in no distress. Notes she has been constipated recently. States feels well and will f/u with PMD. Instructed to return to ED immediately for worsening pain, fever, vomiting, dyspnea, abnormal stool, or any other problem. Disposition - Disposition Referrals: Vera Aguero MD [Staff Provider] - Disposition: HOME/ ROUTINE Disposition Time: 16:26 Condition: STABLE Additional Instructions: FINDINGS: LOWER THORAX: No visible consolidation, pleural effusion, or pneumothorax. LIVER: Unremarkable. GALLBLADDER AND BILE DUCTS: Unremarkable. PANCREAS: Unremarkable. SPLEEN: Diminutive spleen with probable splenules. ADRENALS: Unremarkable. KIDNEYS AND URETERS: The kidneys enhance symmetrically. No hydronephrosis or obstructing renal ca lculus. BLADDER: The urinary bladder appears unremarkable. REPRODUCTIVE: Uterus is absent, consistent with hysterectomy. APPENDIX: The appendix appears within normal limits of caliber. No secondary signs of acute appendicitis. BOWEL: The stomach is nondistended. The bowel loops appear within normal limits of caliber without evidence of intestinal obstruction. Moderate constipation. PERITONEUM: No significant free fluid. No definite free air. LYMPH NODES: No bulky lymphadenopathy identified. VASCULATURE: No aortic aneurysm. Atherosclerotic calcification/mural plaque present. Air likely residing within vessels in the lower pelvis anterior to the sacrum (for example series 3, image 104). BONES: Degenerative changes. OTHER FINDINGS: None. IMPRESSION: Moderate constipation. Hysterectomy. Tubular structures containing air within the lower pelvis anterior to the sacrum likely reflect air within vessels rather than pneumoperitoneum. Correlate clinically. Prescriptions: Polyethylene Glycol 3350 [Miralax] 17 gm PO DAILY #238 gm Instructions: Constipation in Adults Forms: [employer] Connect (Kyrgyz) - Clinical Impression Clinical Impression: Constipation - Scribe Statement The provider has reviewed the documentation as recorded by the Scribe Maricsa Gooden All medical record entries made by the Alfred were at my direction and personally dictated by me. I have reviewed the chart and agree that the record accurately reflects my personal performance of the history, physical exam, medical decision making, and the department course for this patient. I have also personally directed, reviewed, and agree with the discharge instructions and disposition.
[2018-08-12 10:49] LABS: URINE BILIRUBIN NEGATIVE (NEGATIVE); URINE BLOOD NEGATIVE (NEGATIVE); URINE CLARITY Hazy (Clear); URINE COLOR STRAW (YELLOW); URINE GLUCOSE (UA) Normal (Normal); URINE PROTEIN NEGATIVE (NEGATIVE); URINE UROBILINOGEN Normal mg/dL (0.2-1.0)
[2018-08-12 10:50] LABS: SQUAMOUS EPITHIAL 1 /hpf (0-5); URINE BACTERIA RARE (<OCC); URINE LEUKOCYTE ESTERASE Negative Leu/uL (Negative)
[2018-08-12 11:07] LABS: BASO # 0.2 K/uL (0.0-0.2); BASO % 1.9 % (0.0-2.0); EOS # 0.1 K/uL (0.0-0.7); EOS % 1.4 % (0.0-4.0); HEMOGLOBIN 12.3 g/dL (11.0-16.0); LYMPH # 4.3 K/uL (1.0-4.3); LYMPH % 52.6 % (20.0-40.0); MEAN CELL VOLUME 86.1 fL (81.0-99.0); MEAN CORPUSCULAR HEMOGLOBIN 28.4 pg (27.0-31.0); MEAN PLATELET VOLUME 10.6 fL (7.2-11.7); MONO # 0.4 K/uL (0.0-0.8); MONO % 5.1 % (0.0-10.0); NEUT # 3.2 K/uL (1.8-7.0); NRBC % 0.1 % (0.0-2.0); RBC 4.34 Mil/uL (3.80-5.20); RED CELL DISTRIBUTION WIDTH 17.8 % (11.5-14.5); WHITE BLOOD COUNT 8.3 K/uL (4.8-10.8)
[2018-08-12 11:19] LABS: ALB/GLOB RATIO 1.3 (1.0-2.1); ALBUMIN 4.5 g/dL (3.5-5.0); ALT/SGPT 42 U/L (9-52); AST/SGOT 40 U/L (14-36); BLOOD UREA NITROGEN 10 mg/dL (7-17); CALCIUM 9.7 mg/dl (8.6-10.4); GFR NON-AFRICAN AMERICAN > 60; LIPASE 145 U/L (23-300)
[2018-08-12] MEDS ORDERED: Alum-Mag Hydrox-Simethicone Susp (30 mL) ONE (11:39)
[2018-08-12] MEDS ORDERED: Alum-Mag Hydrox-Simethicone Susp (30 mL) PO STA (11:39)
[2018-08-12] MEDS ORDERED: Iohexol 240 (50 ml) PO ONE (14:09)
[2018-08-12] MEDS ORDERED: Iohexol 240 (50 ml) ONE (14:14)
[2018-08-12] MEDS ORDERED: Iodixanol 320 MG/ML 100 ML BOTTLE IV ONE (14:16)
--- NOTE | 2018-08-12 16:46 | CT ---
PROCEDURE: CT Abdomen and Pelvis with oral and IV contrast. HISTORY: reports feces from vagina COMPARISON: CT abdomen and pelvis without IV contrast performed 06/10/18 TECHNIQUE: Contiguous axial images of the abdomen and pelvis. Oral and IV contrast was administered. Coronal and Sagittal reformats generated and reviewed. Contrast dose: 100 mL Visipaque IV Radiation dose: Total exam DLP = 480.01 mGy-cm. This CT exam was performed using one or more of the following dose reduction techniques: Automated exposure control, adjustment of the mA and/or kV according to patient size, and/or use of iterative reconstruction technique. FINDINGS: LOWER THORAX: No visible consolidation, pleural effusion, or pneumothorax. LIVER: Unremarkable. GALLBLADDER AND BILE DUCTS: Unremarkable. PANCREAS: Unremarkable. SPLEEN: Diminutive spleen with probable splenules. ADRENALS: Unremarkable. KIDNEYS AND URETERS: The kidneys enhance symmetrically. No hydronephrosis or obstructing renal calculus. BLADDER: The urinary bladder appears unremarkable. REPRODUCTIVE: Uterus is absent, consistent with hysterectomy. APPENDIX: The appendix appears within normal limits of caliber. No secondary signs of acute appendicitis. BOWEL: The stomach is nondistended. The bowel loops appear within normal limits of caliber without evidence of intestinal obstruction. Moderate constipation. PERITONEUM: No significant free fluid. No definite free air. LYMPH NODES: No bulky lymphadenopathy identified. VASCULATURE: No aortic aneurysm. Atherosclerotic calcification/mural plaque present. Air likely residing within vessels in the lower pelvis anterior to the sacrum (for example series 3, image 104). BONES: Degenerative changes. OTHER FINDINGS: None. IMPRESSION: Moderate constipation. Hysterectomy. Tubular structures containing air within the lower pelvis anterior to the sacrum likely reflect air within vessels rather than pneumoperitoneum. Correlate clinically.
[2018-08-12 17:28] VITALS: BP 153/83; PULSE 61; RESP 20; TEMP 97.8; O2SAT 100
== END 2018-08-12 17:45 | disposition home or self-care (01) ==
LOC: C.ER 09:42
DX: K59.00 Constipation, unspecified (principal); I10 Essential (primary) hypertension; E78.00 Pure hypercholesterolemia, unspecified; K21.9 Gastro-esophageal reflux disease without esophagitis; F03.90 Unspecified dementia, unspecified severity, without behavioral disturbance, psychotic disturbance, mood disturbance, and anxiety; F17.210 Nicotine dependence, cigarettes, uncomplicated; Z90.49 Acquired absence of other specified parts of digestive tract
CPT/HCPCS: 74177; 80053; 81001; 83690; 85025; 87086; 87181; 96374; 99284; Q9966; Q9967

== ENCOUNTER 2018-08-16 22:12 | Emergency (ER) | payer MEDICARE, OTHER ==
[2018-08-16 22:12] VITALS: BMI 27.1
[2018-08-16 22:33] VITALS: RESP 20; TEMP 98.7; O2SAT 100
--- NOTE | 2018-08-16 22:45 | C.PDOC ---
History Of Present Illness 63 year old female presents to the ED c/o left sided headache, left arm and leg pain that started today. Patient has multiple recent visits to the ED for various pain complaints. Patient had mutliple imaging, last CT head done on which was negative. Patient was also evaluated by neurology and had MRI done on 11/2016. Patient denies visual changes, slurred speech, nausea, vomit, dizziness, weakness, numbness, injury, fall, trauma, CP, SOB. Time Seen by Provider: 08/16/18 22:24 Chief Complaint (Nursing): Headache History Per: Patient History/Exam Limitations: no limitations Onset/Duration Of Symptoms: Hrs Current Symptoms Are (Timing): Still Present Quality: "Pain" Recent travel outside of the [place]: No Additional History Per: Patient Past Medical History Reviewed: Historical Data, Nursing Documentation, Vital Signs Vital Signs: Last Vital Signs Temp 98.7 F 08/16/18 22:19 Pulse 77 08/16/18 22:19 Resp 20 08/16/18 22:19 BP 168/81 H 08/16/18 22:19 Pulse Ox 100 08/16/18 22:19 - Medical History PMH: Anxiety, Arthritis, Asthma, Back Problems, COPD, Dementia, Emphysema, Gastritis, GERD, HTN, Hypercholesterolemia, Seizures, Chronic Pain (neck and back) Denies: Anemia, Depression, HIV, Chronic Kidney Disease, Schizophrenia, Sexually Transmitted Disease Surgical History: Appendectomy, Back Surgery, Cholecystectomy - [facility] Procedures COLONOSCOPY (04/22/12) DETOXIFICATION SERVICES FOR SUBSTANCE ABUSE TREATMENT (08/28/17) ESOPHAGOGASTRODUODENOSCOPY [EGD] W/CLOSED BIOPSY (02/04/15) EXCISION OF STOMACH, ENDO, DIAGN (11/11/17) GROUP PSYCHOTHERAPY (11/08/16) INDIVIDUAL PSYCHOTHERAPY, COGNITIVE-BEHAVIORAL (11/08/16) INSERT INFUSION DEV IN R INT JUGULAR VEIN, PERC (11/11/16) INSERTION OF ENDOTRACHEAL AIRWAY INTO TRACHEA, VIA OPENING (11/11/16) RESPIRATORY VENTILATION, 24-96 CONSECUTIVE HOURS (11/11/16) Family History: States: Unknown Family Hx - Social History Hx Tobacco Use: Yes Hx Alcohol Use: No Hx Substance Use: No - Immunization History Hx Tetanus Toxoid Vaccination: No Hx Influenza Vaccination: No Hx Pneumococcal Vaccination: No Review Of Systems Constitutional: Negative for: Fever, Chills Eyes: Negative for: Vision Change Cardiovascular: Negative for: Chest Pain, Palpitations Respiratory: Negative for: Cough, Shortness of Breath Gastrointestinal: Negative for: Nausea, Vomiting, Abdominal Pain Skin: Negative for: Rash Neurological: Positive for: Headache. Negative for: Weakness, Numbness, Dizziness Physical Exam - Physical Exam Appears: Non-toxic, No Acute Distress Skin: Normal Color, Warm, Dry Head: Atraumatic, Normacephalic Eye(s): bilateral: Normal Inspection, PERRL, EOMI Oral Mucosa: Moist Neck: Normal ROM, No Midline Cervical Tenderness, Supple Chest: Symmetrical Cardiovascular: Rhythm Regular Respiratory: Normal Breath Sounds, No Rales, No Rhonchi, No Wheezing Gastrointestinal/Abdominal: Soft, No Tenderness, No Guarding, No Rebound Extremity: Normal ROM, No Tenderness, No Swelling Neurological/Psych: Oriented x3, Normal Speech, Normal Cognition, Normal Motor, Normal Sensation Gait: Steady ED Course And Treatment - Laboratory Results Result Diagrams: 08/16/18 23:05 O2 Sat by Pulse Oximetry: 100 (ON RA) Pulse Ox Interpretation: Normal Progress - Re-Evaluation Re-evaluation Note: 08/16/18 23:[address] JAIN. D/W DR JAIN AWARE OF ER FINDINGS AND AGREES W PLAN 08/17/18 00:03 NEURO INTACT APPEARS COMFORTABLE. WILL DC - Data Reviewed Data Reviewed: Lab, Diagnostic imaging, Old records Medical Decision Making Medical Decision Making: Plan: * CT head * Labs * Magnesium sulfate * Reglan 10 mg IVP * Toradol 30 mg IVP * Tylenol 975 mg PO Disposition Counseled Patient/Family Regarding: Studies Performed, Diagnosis, Need For Followup - Disposition Referrals: YOUR,PMD [Other] Disposition: HOME/ ROUTINE Disposition Time: 00:04 Condition: IMPROVED Instructions: Headache, Adult (DC) Forms: [email or web address] (Polish) - Clinical Impression Clinical Impression: Headache - Scribe Statement The provider has reviewed the documentation as recorded by the Scribe Moose Lafleur All medical record entries made by the Scribe were at my direction and personally dictated by me. I have reviewed the chart and agree that the record accurately reflects my personal performance of the history, physical exam, nd dical decision making, and the department course for this patient. I have also personally directed, reviewed, and agree with the discharge instructions and disposition.
[2018-08-16] MEDS ORDERED: Magnesium Sulfate 1 gm in D5W 1 GM/100 ML BAG IVPB STA (22:53)
[2018-08-16 23:43] LABS: BLOOD UREA NITROGEN 9 mg/dL (7-17); CALCIUM 9.1 mg/dl (8.6-10.4); GFR NON-AFRICAN AMERICAN > 60
[2018-08-17 00:37] VITALS: BP 127/72; PULSE 70
--- NOTE | 2018-08-17 08:11 | CT ---
Date of service: 08/16/2018 PROCEDURE: CT HEAD WITHOUT CONTRAST. HISTORY: Headache COMPARISON: 08/03/2018. TECHNIQUE: Axial computed tomography images were obtained through the head/brain without intravenous contrast. Radiation dose: Total exam DLP = 1053.84 mGy-cm. This CT exam was performed using one or more of the following dose reduction techniques: Automated exposure control, adjustment of the mA and/or kV according to patient size, and/or use of iterative reconstruction technique. FINDINGS: HEMORRHAGE: No intracranial hemorrhage. BRAIN: Again seen are are mild chronic microangiopathic changes. There is no mass, mass effect or abnormal extra-axial fluid collection. There is no territorial infarction. The midline sagittal structures are normal. VENTRICLES: There is redemonstration of moderate age-related global parenchymal volume loss and proportionate enlargement of the ventricles and cortical sulci. CALVARIUM: There is no calvarial fracture or extracranial soft tissue swelling. PARANASAL SINUSES: Predominantly clear. MASTOID AIR CELLS: Predominantly clear. OTHER FINDINGS: None. IMPRESSION: No acute intracranial abnormality. Redemonstration of mild chronic microangiopathic changes and moderate age-related global parenchymal volume loss. A preliminary report was provided by [employer].
== END 2018-08-17 01:45 | disposition home or self-care (01) ==
LOC: C.ER 22:12
DX: R51 Headache (principal); E78.00 Pure hypercholesterolemia, unspecified; I10 Essential (primary) hypertension; J44.9 Chronic obstructive pulmonary disease, unspecified; Z72.0 Tobacco use

== ENCOUNTER 2018-09-19 16:48 | Emergency (ER) | payer MEDICARE, OTHER ==
[2018-09-19 16:48] VITALS: BMI 27.1
[2018-09-19 17:01] VITALS: TEMP 98.6; O2SAT 99
[2018-09-19] MEDS ORDERED: DiphenhydrAMINE 50 mg/ml Inj IVP STA (17:42)
--- NOTE | 2018-09-19 17:56 | C.PDOC ---
History Of Present Illness 63 y/o female with a PMHx of HTN, substance abuse, currently on suboxone, presents to the ED with headache for 3 days. Headache is right-sided. Associated with nausea, no vomiting. She denies any fevers, neck stiffness, visual loss, photophobia, or other associated complaints. Time Seen by Provider: 09/19/18 17:29 Chief Complaint (Nursing): Headache History Per: Patient History/Exam Limitations: no limitations Onset/Duration Of Symptoms: Days (x 3) Current Symptoms Are (Timing): Still Present Associated Symptoms: Nausea Past Medical History Reviewed: Historical Data, Nursing Documentation, Vital Signs Vital Signs: Last Vital Signs Temp 98.6 F 09/19/18 16:58 Pulse 89 09/19/18 16:58 Resp 18 09/19/18 16:58 BP 178/94 H 09/19/18 16:58 Pulse Ox 99 09/19/18 16:58 - Medical History PMH: Anxiety, Arthritis, Asthma, Back Problems, COPD, Dementia, Emphysema, Gastritis, GERD, HTN, Hypercholesterolemia, Seizures, Chronic Pain (neck and back) Denies: Anemia, Depression, HIV, Chronic Kidney Disease, Schizophrenia, Sexually Transmitted Disease Surgical History: Appendectomy, Back Surgery, Cholecystectomy - [facility] Procedures COLONOSCOPY (04/22/12) DETOXIFICATION SERVICES FOR SUBSTANCE ABUSE TREATMENT (08/28/17) ESOPHAGOGASTRODUODENOSCOPY [EGD] W/CLOSED BIOPSY (02/04/15) EXCISION OF STOMACH, ENDO, DIAGN (11/11/17) GROUP PSYCHOTHERAPY (11/08/16) INDIVIDUAL PSYCHOTHERAPY, COGNITIVE-BEHAVIORAL (11/08/16) INSERT INFUSION DEV IN R INT JUGULAR VEIN, PERC (11/11/16) INSERTION OF ENDOTRACHEAL AIRWAY INTO TRACHEA, VIA OPENING (11/11/16) RESPIRATORY VENTILATION, 24-96 CONSECUTIVE HOURS (11/11/16) Family History: States: Unknown Family Hx - Social History Hx Tobacco Use: Yes Hx Alcohol Use: No Hx Substance Use: No - Immunization History Hx Tetanus Toxoid Vaccination: No Hx Influenza Vaccination: No Hx Pneumococcal Vaccination: No Review Of Systems Except As Marked, All Systems Reviewed And Found Negative. Constitutional: Negative for: Fever, Chills Eyes: Negative for: Vision Change Cardiovascular: Negative for: Chest Pain Respiratory: Negative for: Shortness of Breath Gastrointestinal: Positive for: Nausea. Negative for: Vomiting, Abdominal Pain, Diarrhea Musculoskeletal: Negative for: Neck Pain Neurological: Positive for: Headache. Negative for: Weakness, Numbness, Change in Speech Physical Exam - Physical Exam Appears: Non-toxic, No Acute Distress Skin: Warm, Dry Head: Atraumatic, Normacephalic Eye(s): bilateral: Normal Inspection, PERRL, EOMI Nose: Normal Oral Mucosa: Moist Neck: Normal ROM, Supple Chest: Symmetrical Cardiovascular: Rhythm Regular, No Murmur Respiratory: Normal Breath Sounds, No Accessory Muscle Use Gastrointestinal/Abdominal: Bowel Sounds (active), Soft, No Tenderness, No Distention Back: Normal Inspection Extremity: Bilateral: Atraumatic, Normal Color And Temperature, Normal ROM Neurological/Psych: Oriented x3, Normal Speech, Normal Cranial Nerves, Other (No focal deficits) ED Course And Treatment - Laboratory Results Result Diagrams: 09/19/18 18:22 09/19/18 18:22 O2 Sat by Pulse Oximetry: 99 (RA) Pulse Ox Interpretation: Normal - CT Scan/US CT Head Other Rad Studies (CT/US): Read By Radiologist, Radiology Report Reviewed CT/US Interpretation: Name:RENE AMAYA Exam Date:Sep 19, 2018 7:35:45 PM EST. Modality Type:CT. Description:CT - BRAIN WITH CORONAL AND SAGITTAL MPRS. Gender:F Laterality:Not applicable. :56 Referring Physician:Andreas Ramirez (). EXAM: CT Head without Intravenous Contrast. CLINICAL HISTORY: TIA, HEADACHE. TECHNIQUE: Axial computed tomography images of the head/brain without intravenous contrast. 0.00 mGy-cm. COMPARISON: None provided. FINDINGS: BRAIN. No acute intraparenchymal hemorrhage. No mass lesion. No CT evidence for acute territorial infarct. No midline shift or extra-axial collections. VENTRICLES: No hydrocephalus. ORBITS: The orbits are unremarkable. SINUSES AND MASTOIDS: The paranasal sinuses and mastoid air cells are clear. BONES: No fracture. SOFT TISSUES: Unremarkable. IMPRESSION: No acute intracranial abnormality. . Electronically signed on Sep 19, 2018 8:16:34 PM EST by: Almas Olvera M.D., Certified by [facility], Diagnostic Radiology Medical Decision Making Medical Decision Making: pedersen Plan: --Labs --10 mg IV Reglan --25 mg IV Benadryl --Reassess 1906 CT Head ordered. Imaging and labs reviewed. CT negative. Still pending ESR. 21:05 Patient reports improvement in symptoms and remains AAOx3, afebrile, in no acute distress. labs neg pain resovled. esr neg. labs neg. advise outpt fu. pt encouraged to see neuro for possible ouutpt testing/mri. strict return precautions. Disposition - Disposition Referrals: Phuc Maier MD [Staff Provider] - Disposition: HOME/ ROUTINE Disposition Time: 22:00 Condition: STABLE Additional Instructions: follow up with your doctor/clinic. return to any er with worsening symptoms or concerns. Instructions: Headache, Adult Forms: [employer] (Sami) - Clinical Impression Clinical Impression: Headache - Scribe Statement The provider has reviewed the documentation as recorded by the Gisellibe Jillian Casas Provider Attestation: All medical record entries made by the Gisellibe were at my direction and personally dictated by me. I have reviewed the chart and agree that the record accurately reflects my personal performance of the history, physical exam, medical decision making, and the department course for this patient. I have also personally directed, reviewed, and agree with the discharge instructions and disposition.
[2018-09-19 18:40] LABS: BASO # 0.1 K/uL (0.0-0.2); BASO % 0.9 % (0.0-2.0); EOS # 0.2 K/uL (0.0-0.7); EOS % 2.4 % (0.0-4.0); LYMPH # 3.9 K/uL (1.0-4.3); LYMPH % 54.6 % (20.0-40.0); MEAN CELL VOLUME 86.6 fL (81.0-99.0); MEAN CORPUSCULAR HEMOGLOBIN 27.9 pg (27.0-31.0); MEAN CORPUSCULAR HGB CONC 32.2 g/dL (33.0-37.0); MEAN PLATELET VOLUME 10.3 fL (7.2-11.7); MONO # 0.4 K/uL (0.0-0.8); MONO % 5.3 % (0.0-10.0); NEUT # 2.6 K/uL (1.8-7.0); NEUT % 36.8 % (50.0-75.0); NRBC % 0.2 % (0.0-2.0); RBC 4.65 Mil/uL (3.80-5.20); RED CELL DISTRIBUTION WIDTH 18.7 % (11.5-14.5); WHITE BLOOD COUNT 7.2 K/uL (4.8-10.8)
[2018-09-19 18:45] LABS: ALB/GLOB RATIO 1.4 (1.0-2.1); ALBUMIN 4.7 g/dL (3.5-5.0); ALT/SGPT 46 U/L (9-52); AST/SGOT 54 U/L (14-36); BLOOD UREA NITROGEN 6 mg/dL (7-17); CALCIUM 9.7 mg/dl (8.6-10.4); GFR NON-AFRICAN AMERICAN > 60
[2018-09-19] MEDS ORDERED: DiphenhydrAMINE 12.5 mg/5 ml LIQ UD (5 ml) PO STA (19:07)
[2018-09-19 22:45] VITALS: BP 160/90; PULSE 88; RESP 20
--- NOTE | 2018-09-20 08:27 | CT ---
Date of service: 09/19/2018 PROCEDURE: CT HEAD WITHOUT CONTRAST. HISTORY: Headache COMPARISON: 08/16/2018. TECHNIQUE: Axial computed tomography images were obtained through the head/brain without intravenous contrast. Radiation dose: Total exam DLP = 892.06 mGy-cm. This CT exam was performed using one or more of the following dose reduction techniques: Automated exposure control, adjustment of the mA and/or kV according to patient size, and/or use of iterative reconstruction technique. FINDINGS: HEMORRHAGE: No intracranial hemorrhage. BRAIN: There are mild chronic microangiopathic changes. There is no mass, mass effect or abnormal extra-axial fluid collection. There is no territorial infarction. The midline sagittal structures are normal. VENTRICLES: There is mild age-related global parenchymal volume loss and proportionate enlargement of the ventricles and cortical sulci. CALVARIUM: There is no calvarial fracture or extracranial soft tissue swelling. PARANASAL SINUSES: Predominantly clear. MASTOID AIR CELLS: Predominantly clear. OTHER FINDINGS: None. IMPRESSION: No acute intracranial abnormality. Mild chronic microangiopathic changes and mild age-related global parenchymal volume loss. A preliminary report was provided by [employer].
== END 2018-09-19 22:39 | disposition home or self-care (01) ==
LOC: C.ER 16:48
DX: R51 Headache (principal); I10 Essential (primary) hypertension; E78.00 Pure hypercholesterolemia, unspecified; K21.9 Gastro-esophageal reflux disease without esophagitis; F19.10 Other psychoactive substance abuse, uncomplicated; F17.210 Nicotine dependence, cigarettes, uncomplicated

== ENCOUNTER 2018-11-09 15:04 | Emergency (ER) | payer MEDICARE, OTHER ==
[2018-11-09 15:04] VITALS: BMI 27.1
--- NOTE | 2018-11-09 15:52 | C.PDOC ---
History Of Present Illness 63 years old female with Past surgical history of splenectomy and cholecystectomy presents to ED for complaints of periumbilical abdominal pain and back pain that began 2 weeks ago. Patient reports associated symptoms of nausea, fever, chills,. She also reports diarrhea few days ago but not today. Denies any other physical complaints. Time Seen by Provider: 11/09/18 15:11 Chief Complaint (Nursing): Abdominal Pain History Per: Patient History/Exam Limitations: no limitations Onset/Duration Of Symptoms: Days Current Symptoms Are (Timing): Still Present Location Of Pain/Discomfort: Periumbilical Radiation Of Pain To:: Back Quality Of Discomfort: "Pain" Associated Symptoms: Fever, Chills, Nausea, Diarrhea Exacerbating Factors: None Alleviating Factors: None Last Bowel Movement: Today Recent travel outside of the [place]: No Abnormal Vaginal Bleeding: No Past Medical History Reviewed: Historical Data, Nursing Documentation, Vital Signs - Medical History PMH: Anxiety, Arthritis, Asthma, Back Problems, COPD, Dementia, Emphysema, Gastritis, GERD, HTN, Hypercholesterolemia, Seizures, Chronic Pain (neck and back) Denies: Anemia, Depression, HIV, Chronic Kidney Disease, Schizophrenia, Sexually Transmitted Disease Surgical History: Appendectomy, Back Surgery, Cholecystectomy - [facility] Procedures COLONOSCOPY (04/22/12) DETOXIFICATION SERVICES FOR SUBSTANCE ABUSE TREATMENT (08/28/17) ESOPHAGOGASTRODUODENOSCOPY [EGD] W/CLOSED BIOPSY (02/04/15) EXCISION OF STOMACH, ENDO, DIAGN (11/11/17) GROUP PSYCHOTHERAPY (11/08/16) INDIVIDUAL PSYCHOTHERAPY, COGNITIVE-BEHAVIORAL (11/08/16) INSERT INFUSION DEV IN R INT JUGULAR VEIN, PERC (11/11/16) INSERTION OF ENDOTRACHEAL AIRWAY INTO TRACHEA, VIA OPENING (11/11/16) RESPIRATORY VENTILATION, 24-96 CONSECUTIVE HOURS (11/11/16) Family History: States: Unknown Family Hx - Social History Hx Tobacco Use: Yes Hx Alcohol Use: No Hx Substance Use: No - Immunization History Hx Tetanus Toxoid Vaccination: No Hx Influenza Vaccination: No Hx Pneumococcal Vaccination: No Review Of Systems Except As Marked, All Systems Reviewed And Found Negative. Constitutional: Positive for: Fever, Chills Gastrointestinal: Positive for: Nausea, Abdominal Pain (periumbilical ). Negative for: Diarrhea Skin: Negative for: Rash Neurological: Negative for: Weakness, Numbness Physical Exam - Physical Exam Appears: Non-toxic, No Acute Distress Skin: Normal Color, Warm, Dry, No Rash Head: Atraumatic, Normacephalic Eye(s): bilateral: Normal Inspection, PERRL, EOMI Oral Mucosa: Moist Throat: Normal, No Erythema, No Exudate, No Drooling, No Mass Neck: Normal ROM, Supple Chest: Symmetrical, No Tenderness Cardiovascular: Rhythm Regular, No Murmur Respiratory: Normal Breath Sounds, No Rales, No Rhonchi, No Wheezing Gastrointestinal/Abdominal: Normal Exam, Bowel Sounds (Active ), Soft, No Tenderness, No Guarding, No Rebound Back: Normal Inspection, No CVA Tenderness Extremity: Normal ROM Extremity: Bilateral: Atraumatic, Normal Color And Temperature, Normal ROM Pulses: Left Radial: Normal, Right Radial: Normal Neurological/Psych: Oriented x3, Normal Speech Gait: Steady ED Course And Treatment - Laboratory Results Result Diagrams: 11/09/18 18:12 11/09/18 18:12 - Other Rad CXR X-Ray: Viewed By Me, Read By Radiologist Interpretation: Date of service: 11/09/2018. HISTORY: Mid abdominal pain radiating to the back, nausea. COMPARISON: Comparison chest 08/11/2018. FINDINGS: LUNGS: Minimal discoid type atelectasis felt be present left medial mid to lower lung field. PLEURA: No significant pleural effusion identified, no pneumothorax apparent. CARDIOVASCULAR: No aortic atherosclerotic calcification present. Normal cardiac size. No pulmonary vascular congestion. OSSEOUS STRUCTURES: No significant abnormalities. VISUALIZED UPPER ABDOMEN: Normal. OTHER FINDINGS: None. IMPRESSION: No acute infiltrates. Minor discoid type atelectasis felt be present medial aspect left mid to lower lung field Medical Decision Making Medical Decision Making: Plan: * Urine Culture * Blood work * CXR * Urinalysis Disposition - Disposition Disposition Time: 19:03 Condition: STABLE Forms: [employer] (Guamanian) - Clinical Impression Clinical Impression: Abdominal pain - PA / TUCKPOINTER / Resident Statement MD/DO has reviewed & agrees with the documentation as recorded. - Scribe Statement The provider has reviewed the documentation as recorded by the Scribe Davi Manjarrez All medical record entries made by the Scribe were at my direction and personally dictated by me. I have reviewed the chart and agree that the record accurately reflects my personal performance of the history, physical exam, medical decision making, and the department course for this patient. I have also personally directed, reviewed, and agree with the discharge instructions and disposition. Physician Patient Turnover Patient Signed Over To: Julia Marie Handoff Comments: Pending CT scan and dispo
--- NOTE | 2018-11-09 16:19 | RAD ---
Date of service: 11/09/2018 HISTORY: Mid abdominal pain radiating to the back, nausea COMPARISON: Comparison chest 08/11/2018 FINDINGS: LUNGS: Minimal discoid type atelectasis felt be present left medial mid to lower lung field. PLEURA: No significant pleural effusion identified, no pneumothorax apparent. CARDIOVASCULAR: No aortic atherosclerotic calcification present. Normal cardiac size. No pulmonary vascular congestion. OSSEOUS STRUCTURES: No significant abnormalities. VISUALIZED UPPER ABDOMEN: Normal. OTHER FINDINGS: None. IMPRESSION: No acute infiltrates. Minor discoid type atelectasis felt be present medial aspect left mid to lower lung field
[2018-11-09 17:58] LABS: SQUAMOUS EPITHIAL < 1 /hpf (0-5); URINE BACTERIA OCC (<OCC); URINE BILIRUBIN NEGATIVE (NEGATIVE); URINE BLOOD NEGATIVE (NEGATIVE); URINE CLARITY Clear (Clear); URINE COLOR Straw (YELLOW); URINE GLUCOSE (UA) NORMAL (Normal); URINE LEUKOCYTE ESTERASE NEG Leu/uL (Negative); URINE PROTEIN NEGATIVE (NEGATIVE); URINE UROBILINOGEN NORMAL mg/dL (0.2-1.0)
[2018-11-09 18:20] LABS: MONO # 0.5 K/uL (0.0-0.8)
[2018-11-09 18:24] LABS: BASO # 0.2 K/uL (0.0-0.2); BASO % 1.5 % (0.0-2.0); EOS # 0.2 K/uL (0.0-0.7); EOS % 2.1 % (0.0-4.0); HEMOGLOBIN 11.5 g/dL (11.0-16.0); LYMPH # 5.7 K/uL (1.0-4.3); LYMPH % 54.8 % (20.0-40.0); MEAN CELL VOLUME 85.9 fL (81.0-99.0); MEAN CORPUSCULAR HEMOGLOBIN 28.2 pg (27.0-31.0); MEAN CORPUSCULAR HGB CONC 32.8 g/dL (33.0-37.0); MEAN PLATELET VOLUME 10.4 fL (7.2-11.7); MONO % 4.4 % (0.0-10.0); NEUT # 3.9 K/uL (1.8-7.0); NEUT % 37.2 % (50.0-75.0); NRBC % 0.1 % (0.0-2.0); RBC 4.08 Mil/uL (3.80-5.20); RED CELL DISTRIBUTION WIDTH 17.8 % (11.5-14.5); WHITE BLOOD COUNT 10.4 K/uL (4.8-10.8)
[2018-11-09 18:53] LABS: ALB/GLOB RATIO 1.4 (1.0-2.1); ALBUMIN 3.7 g/dL (3.5-5.0); ALT/SGPT 39 U/L (9-52); AST/SGOT 47 U/L (14-36); BLOOD UREA NITROGEN 10 mg/dL (7-17); CALCIUM 8.6 mg/dl (8.6-10.4); GFR NON-AFRICAN AMERICAN > 60; LIPASE 139 U/L (23-300)
[2018-11-09 19:07] VITALS: RESP 14
[2018-11-09 19:07] LABS: B-TYPE NATRIURETIC PEPTIDE 80.9 pg/mL (0-900)
[2018-11-09] MEDS ORDERED: Iodixanol 320 MG/ML 100 ML BOTTLE IV ONE (19:28)
[2018-11-09] MEDS ORDERED: Alum-Mag Hydrox-Simethicone Susp (30 mL) PO STA (20:53)
[2018-11-09] MEDS ORDERED: Alum-Mag Hydrox-Simethicone Susp (30 mL) ONE (20:57)
[2018-11-09] MEDS ORDERED: Potassium Chloride 10 mEq ER Tab PO STA (21:21)
[2018-11-09] MEDS ORDERED: Potassium Chloride 20 mEq ER Tab PO ONE (21:33)
[2018-11-09 21:43] VITALS: BP 165/87; PULSE 61; TEMP 99; O2SAT 98
--- NOTE | 2018-11-10 09:07 | CT ---
Date of service: 11/09/2018 PROCEDURE: CT Abdomen and Pelvis without intravenous contrast HISTORY: anirudh-umbil abd pain, nausea COMPARISON: 08/12/2018 TECHNIQUE: Technique. Contrast dose: Radiation dose: Total exam DLP = 753.4 mGy-cm. This CT exam was performed using one or more of the following dose reduction techniques: Automated exposure control, adjustment of the mA and/or kV according to patient size, and/or use of iterative reconstruction technique. FINDINGS: LOWER THORAX: Unremarkable. LIVER: Unremarkable. No gross lesion or ductal dilatation. GALLBLADDER AND BILE DUCTS: Cholecystectomy. PANCREAS: Unremarkable. No gross lesion or ductal dilatation. SPLEEN: Unremarkable. ADRENALS: Unremarkable. No mass. KIDNEYS AND URETERS: Unremarkable. No hydronephrosis. No solid mass. VASCULATURE: Unremarkable. No aortic aneurysm. No aortic atherosclerotic calcification or mural plaque present. BOWEL: Unremarkable. No obstruction. No gross mural thickening. APPENDIX: Unremarkable. Normal appendix. PERITONEUM: Unremarkable. No free fluid. No free air. LYMPH NODES: Unremarkable. No enlarged lymph nodes. BLADDER: Unremarkable. REPRODUCTIVE: Hysterectomy. BONES: No acute fracture. OTHER FINDINGS: Small umbilical hernia containing omental fat. IMPRESSION: Status post hysterectomy and cholecystectomy.
--- NOTE | 2018-11-10 19:49 | CARD ---
APPROVED REPORT Date of service: 11/09/2018 EKG Measurement Heart [id number] <Conclusion> Normal sinus rhythm Possible Left atrial enlargement Septal infarct, age undetermined Abnormal ECG
== END 2018-11-09 21:42 | disposition home or self-care (01) ==
LOC: C.ER 15:04
DX: R10.33 Periumbilical pain (principal); E87.6 Hypokalemia; E78.00 Pure hypercholesterolemia, unspecified; I10 Essential (primary) hypertension; J44.9 Chronic obstructive pulmonary disease, unspecified; Z72.0 Tobacco use
CPT/HCPCS: 71045; 74176; 80053; 81001; 82948; 83605; 83690; 83880; 84484; 85025; 87086; 87181; 93005; 96374; 99285; J1885

== ENCOUNTER 2018-11-14 12:17 | Inpatient (IN) | payer MEDICARE, OTHER ==
[2018-11-14 12:17] VITALS: BMI 27.4
[2018-11-14] MEDS ORDERED: Sodium Chloride 0.9% 500 ML IV ONE (13:40)
[2018-11-14] MEDS ORDERED: Iodixanol 320 MG/ML 100 ML BOTTLE IV ONE (14:09)
[2018-11-14 14:13] LABS: BASO # 0.1 K/uL (0.0-0.2); BASO % 1.1 % (0.0-2.0); EOS # 0.1 K/uL (0.0-0.7); EOS % 1.6 % (0.0-4.0); HEMOGLOBIN 11.4 g/dL (11.0-16.0); LYMPH # 4.6 K/uL (1.0-4.3); LYMPH % 57.4 % (20.0-40.0); MEAN CELL VOLUME 85.9 fL (81.0-99.0); MEAN CORPUSCULAR HEMOGLOBIN 27.4 pg (27.0-31.0); MEAN CORPUSCULAR HGB CONC 31.9 g/dL (33.0-37.0); MONO # 0.5 K/uL (0.0-0.8); MONO % 6.6 % (0.0-10.0); NEUT # 2.6 K/uL (1.8-7.0); NEUT % 33.3 % (50.0-75.0); RBC 4.15 Mil/uL (3.80-5.20); RED CELL DISTRIBUTION WIDTH 17.2 % (11.5-14.5); WHITE BLOOD COUNT 7.9 K/uL (4.8-10.8)
[2018-11-14 14:21] LABS: SQUAMOUS EPITHIAL 1 /hpf (0-5); URINE BACTERIA RARE (<OCC); URINE BILIRUBIN NEGATIVE (NEGATIVE); URINE BLOOD NEGATIVE (NEGATIVE); URINE CLARITY Clear (Clear); URINE COLOR Yellow (YELLOW); URINE GLUCOSE (UA) NORMAL (Normal); URINE LEUKOCYTE ESTERASE NEG Leu/uL (Negative); URINE PROTEIN NEGATIVE (NEGATIVE); URINE UROBILINOGEN NORMAL mg/dL (0.2-1.0)
--- NOTE | 2018-11-14 14:22 | C.PDOC ---
History Of Present Illness 63 year old female presents to ED with complaint of lower abdominal pain for the past 5 days. Patient was at [facility] ED on the 11/09/18 for the same symptoms and states it has gotten worse. Patient also complains of associated nausea. She denies vomiting, diarrhea, dysuria, fever, sore throat, cough, and runny nose. Time Seen by Provider: 11/14/18 13:05 Chief Complaint (Nursing): Abdominal Pain History Per: Patient History/Exam Limitations: no limitations Onset/Duration Of Symptoms: Days (5) Current Symptoms Are (Timing): Still Present Location Of Pain/Discomfort: Other (lower abdomen) Radiation Of Pain To:: None Quality Of Discomfort: "Pain" Associated Symptoms: Nausea. denies: Fever, Vomiting, Diarrhea, Urinary Symptoms Exacerbating Factors: None Alleviating Factors: None Past Medical History Reviewed: Historical Data, Nursing Documentation, Vital Signs Vital Signs: Last Vital Signs Temp 98.7 F 11/14/18 12:26 Pulse 81 11/14/18 12:26 Resp 18 11/14/18 12:26 BP 166/81 H 11/14/18 12:26 Pulse Ox 98 11/14/18 12:26 - Medical History PMH: Anxiety, Arthritis, Asthma, Back Problems, COPD, Dementia, Emphysema, Gastritis, GERD, HTN, Hypercholesterolemia, Seizures, Chronic Pain (neck and back) Denies: Anemia, Depression, HIV, Chronic Kidney Disease, Schizophrenia, Sexually Transmitted Disease Surgical History: Appendectomy, Back Surgery, Cholecystectomy - [facility] Procedures COLONOSCOPY (04/22/12) DETOXIFICATION SERVICES FOR SUBSTANCE ABUSE TREATMENT (08/28/17) ESOPHAGOGASTRODUODENOSCOPY [EGD] W/CLOSED BIOPSY (02/04/15) EXCISION OF STOMACH, ENDO, DIAGN (11/11/17) GROUP PSYCHOTHERAPY (11/08/16) INDIVIDUAL PSYCHOTHERAPY, COGNITIVE-BEHAVIORAL (11/08/16) INSERT INFUSION DEV IN R INT JUGULAR VEIN, PERC (11/11/16) INSERTION OF ENDOTRACHEAL AIRWAY INTO TRACHEA, VIA OPENING (11/11/16) RESPIRATORY VENTILATION, 24-96 CONSECUTIVE HOURS (11/11/16) Family History: States: Unknown Family Hx - Social History Hx Tobacco Use: Yes Hx Alcohol Use: No Hx Substance Use: No - Immunization History Hx Tetanus Toxoid Vaccination: No Hx Influenza Vaccination: No Hx Pneumococcal Vaccination: No Review Of Systems Constitutional: Negative for: Fever, Chills, Weakness ENT: Negative for: Nose Discharge, Throat Pain Respiratory: Negative for: Cough Gastrointestinal: Positive for: Nausea, Abdominal Pain (lower abdominal area). Negative for: Vomiting, Diarrhea Genitourinary: Negative for: Dysuria Neurological: Negative for: Weakness, Numbness, Dizziness Physical Exam - Physical Exam Appears: Well, Non-toxic, No Acute Distress Skin: Normal Color, Warm, Dry Head: Atraumatic, Normacephalic Throat: Normal, No Erythema, No Exudate Neck: Normal ROM, Supple Chest: Symmetrical, No Deformity Cardiovascular: Rhythm Regular, No Murmur Respiratory: No Accessory Muscle Use, No Rales, No Rhonchi, No Wheezing Gastrointestinal/Abdominal: Tenderness (suprapubic and left lower quadrant area ), No Guarding, No Rebound, Other (surgical scar to the right upper quadrant and midline) Extremity: Capillary Refill (<2 seconds) Neurological/Psych: Oriented x3, Normal Speech, Normal Cognition ED Course And Treatment - Laboratory Results Result Diagrams: 11/14/18 13:59 11/14/18 13:59 O2 Sat by Pulse Oximetry: 98 (in RA) Progress Note: Blood work, UA ordered and reviewed. Patient given IV NS bolus, IV toradol. CTA abd/pelvis ordered to evaluate for possible mesenteric ichemia - patient has persistent lower abdominal pain, had dry CT scan 11/07/18 that was unremarkable. Multiple attempts made at peripheral IV insertion by nurse, and 5 attempts at B/L EJs made by me, (+) flash but unable to flush. Patient refusing further attempts. Disposition - Disposition Forms: [employer] (Indonesian) - Scribe Statement The provider has reviewed the documentation as recorded by the Scribe (Jody Leyva) All medical record entries made by the Scribe were at my direction and personally dictated by me. I have reviewed the chart and agree that the record accurately reflects my personal performance of the history, physical exam, medical decision making, and the department course for this patient. I have also personally directed, reviewed, and agree with the discharge instructions and disposition.
[2018-11-14 14:34] LABS: ALB/GLOB RATIO 1.4 (1.0-2.1); ALT/SGPT 29 U/L (9-52); AST/SGOT 42 U/L (14-36); BLOOD UREA NITROGEN 12 mg/dL (7-17); CALCIUM 9.2 mg/dl (8.6-10.4); GFR NON-AFRICAN AMERICAN > 60; LIPASE 176 U/L (23-300)
[2018-11-14] MEDS: Lactated Ringer's 1,000 ML IV SCH (18:15)
[2018-11-14] MEDS ORDERED: metroNIDAZOLE IV 500 mg/100 ml 500 MG/100 ML BAG ONE (18:52)
[2018-11-14] MEDS: metroNIDAZOLE IV 500 mg/100 ml 500 MG/100 ML BAG IVPB SCH (18:57)
[2018-11-14 19:13] LABS: AMYLASE 121 U/L (30-110)
[2018-11-14] MEDS ORDERED: Belladonna-Phenobarbital ONE (19:45)
[2018-11-14] MEDS: Belladonna-Phenobarbital PO SCH (19:47)
[2018-11-14] MEDS: (Novolin R) Insulin Human Regular 100 units/ml vial SC SCH (22:32)
--- NOTE | 2018-11-14 22:58 | CP.PCM.HP ---
Present on Admission - Present on Admission Any Indicators Present on Admission: No Past Patient History - Infectious Disease Hx of Infectious Diseases: None - Past Medical History & Family History Past Medical History?: Yes - Past Social History Smoking Status: Light Smoker < 10 Cigarettes Daily - CARDIAC Hx Hypercholesterolemia: Yes Hx Hypertension: Yes - PULMONARY Hx Asthma: Yes Hx Chronic Obstructive Pulmonary Disease (COPD): Yes Hx Emphysema: Yes - NEUROLOGICAL Hx Dementia: Yes Hx Seizures: Yes - HEENT Hx HEENT Problems: Yes Hx Difficulty Chewing: Yes Other/Comment: glasses - RENAL Hx Chronic Kidney Disease: No - ENDOCRINE/METABOLIC Hx Endocrine Disorders: Yes Hx Diabetes Mellitus Type 2: Yes - HEMATOLOGICAL/ONCOLOGICAL Hx Anemia: No Hx Human Immunodeficiency Virus (HIV): No - INTEGUMENTARY Hx Dermatological Problems: No - MUSCULOSKELETAL/RHEUMATOLOGICAL Hx Arthritis: Yes - GASTROINTESTINAL Hx Gastritis: Yes - GENITOURINARY/GYNECOLOGICAL Hx Sexually Transmitted Disorders: No - PSYCHIATRIC Hx Anxiety: Yes Hx Depression: No Hx Schizophrenia: No Hx Substance Use: No - SURGICAL HISTORY Hx Appendectomy: Yes Hx Cholecystectomy: Yes - ANESTHESIA Hx Anesthesia: Yes Hx Anesthesia Reactions: No Hx Malignant Hyperthermia: No Meds Allergies/Adverse Reactions: Allergies Allergy/AdvReac Type Severity Reaction Status Date / Time No Known Allergies Allergy Verified 11/09/18 15:22 Results - Vital Signs Recent Vital Signs: Last Vital Signs Temp 98.8 F 11/14/18 21:30 Pulse 78 11/14/18 21:30 Resp 18 11/14/18 21:30 BP 156/80 H 11/14/18 21:30 Pulse Ox 97 11/14/18 21:06 - Labs Result Diagrams: 11/14/18 13:59 11/14/18 13:59 Labs: Laboratory Results - last 24 hr 11/14/18 11/14/18 11/14/18 13:59 13:59 13:59 WBC 7.9 RBC 4.15 Hgb 11.4 Hct 35.6 MCV 85.9 MCH 27.4 MCHC 31.9 L RDW 17.2 H Plt Count 237 MPV 10.0 Neut % (Auto) 33.3 L Lymph % (Auto) 57.4 H [place] % (Auto) 6.6 Eos % (Auto) 1.6 Baso % (Auto) 1.1 Neut # (Auto) 2.6 Lymph # (Auto) 4.6 H [place] # (Auto) 0.5 Eos # (Auto) 0.1 Baso # (Auto) 0.1 Sodium 138 Potassium 3.7 Chloride 104 Carbon Dioxide 29 Anion Gap 8 L BUN 12 Creatinine 0.5 L Est GFR ( Amer) > 60 Est GFR (Non-Af Amer) > 60 POC Glucose (mg/dL) Random Glucose 102 D Calcium 9.2 Total Bilirubin 0.4 AST 42 H ALT 29 Alkaline Phosphatase 65 Total Protein 6.8 Albumin 4.0 Globulin 2.8 Albumin/Globulin Ratio 1.4 Amylase Lipase 176 Carcinoembryonic Ag CA 19-9 Antigen CA 125 Antigen Urine Color Yellow Urine Clarity Clear Urine pH 6.0 Ur Specific [place] 1.006 Urine Protein Negative Urine Glucose (UA) Normal Urine Ketones Negative Urine Blood Negative Urine Nitrate Negative Urine Bilirubin Negative Urine Urobilinogen Normal Ur Leukocyte Esterase Neg Ur Squamous Epith Cells 1 Urine Bacteria Rare 11/14/18 11/14/18 19:01 21:39 WBC RBC Hgb Hct MCV MCH MCHC RDW Plt Count MPV Neut % (Auto) Lymph % (Auto) [place] % (Auto) Eos % (Auto) Baso % (Auto) Neut # (Auto) Lymph # (Auto) [place] # (Auto) Eos # (Auto) Baso # (Auto) Sodium Potassium Chloride Carbon Dioxide Anion Gap BUN Creatinine Est GFR ( Amer) Est GFR (Non-Af Amer) POC Glucose (mg/dL) 105 Random Glucose Calcium Total Bilirubin AST ALT Alkaline Phosphatase Total Protein Albumin Globulin Albumin/Globulin Ratio Amylase 121 H D Lipase Carcinoembryonic Ag 1.6 CA 19-9 Antigen 22.1 CA 125 Antigen < 5.5 Urine Color Urine Clarity Urine pH Ur Specific [place] Urine Protein Urine Glucose (UA) Urine Ketones Urine Blood Urine Nitrate Urine Bilirubin Urine Urobilinogen Ur Leukocyte Esterase Ur Squamous Epith Cells Urine Bacteria
[2018-11-15] MEDS: metroNIDAZOLE IV 500 mg/100 ml 500 MG/100 ML BAG IVPB SCH ×3 (03:03→18:20)
[2018-11-15] MEDS ORDERED: Simethicone 80 mg Chewtab PO ONE (03:24)
[2018-11-15] MEDS: Lactated Ringer's 1,000 ML IV SCH ×3 (04:00→21:05)
--- NOTE | 2018-11-15 05:39 | HP ---
CHIEF COMPLAINT: Lower abdominal pain x5 days. HISTORY OF PRESENT ILLNESS: This is a 63-year-old female well known to me with a history of type 2 diabetes, hypertension, hyperlipidemia and she has history of hepatitis C who came in because of abdominal pain five days ago, which started in the lower abdomen in the suprapubic area and not associated with any dysuria, hematuria, or pyuria. She denies any changes in bowel habits. She denies any bleeding per rectum. She denies any melena or hematochezia. She denies any diarrhea. She denies any fever or chills. She denies any cough, sore throat, or runny nose. She denies any polyuria, polydipsia, or polyphagia. She denies any relation between the chest pain and food intake. She denies any upper abdominal pain. She denies any history of back pain or hip pain. She feels anxious. She denies any depression. The patient denies any history of skin rash, itchy eyes, or itchy nose. PAST MEDICAL HISTORY: Hepatitis C, diabetes, hypertension, hyperlipidemia. SOCIAL HISTORY: Ex-smoker. Non-ETOH user. CURRENT MEDICATIONS AT HOME: She is on metformin, losartan and clonidine. PHYSICAL EXAMINATION: GENERAL: An elderly female, in moderate distress. VITAL SIGNS: Blood pressure 118/94, pulse 53, respiratory rate 20, temperature 99.1. SKIN: Dry. No bruises. No purpura. No petechiae. No ecchymosis. HEENT: Atraumatic and normocephalic. Negative pallor. Negative jaundice. Extraocular movements are intact. NECK: Supple. No JVD. No lymph node. No thyromegaly. No carotic bruit. CHEST WALL: Bilateral symmetrical expansion. No tenderness. LUNGS: Clear. No rales. No rhonchi. CARDIOVASCULAR SYSTEM: PMI not localized. S1 and S2, regular. No heave. No thrill. ABDOMEN: Soft and nontender. Bowel sounds are positive. RECTAL: No masses. No bleeding. EXTREMITIES: No clubbing, cyanosis, or edema. CENTRAL NERVOUS SYSTEM: Awake, alert, and oriented x3. Cranial nerves II through XII are normal. Power 5/5. Plantars are downgoing. ASSESSMENT: 1. Lower abdominal pain, rule out ischemic bowel, rule out diverticulosis/diverticulitis, unlikely to be urinary tract infection, negative. 2. Type 2 diabetes mellitus. 3. Hypertension. 4. Dyslipidemia. 5. Dehydration. PLAN: Admit. Start on Accu-Chek sliding scale. Continue Protonix, Zofran. GI evaluation. Repeat labs. Monitor the patient. Hussein Bah MD
[2018-11-15] MEDS: (Novolin R) Insulin Human Regular 100 units/ml vial SC SCH ×4 (07:36→21:41)
[2018-11-15] MEDS: Enoxaparin 40 mg Syringe SC SCH (09:59)
[2018-11-15] MEDS: Belladonna-Phenobarbital PO SCH ×2 (09:59→18:18)
--- NOTE | 2018-11-15 12:58 | CT ---
Date of service: 11/14/2018 PROCEDURE: CTA Abdomen and Pelvis with contrast HISTORY: persistent abd pain radiating to back COMPARISON: Comparison is made with the previous study dated 11/09/2018 and study dated 08/12/2018 TECHNIQUE: Contrast dose: 100 mL of Visipaque 320 intravenously. CTA of the abdomen and pelvis were obtained after IV contrast administration. Coronal and sagittal reconstructed images were obtained. Radiation dose: Total exam DLP = 687.92 mGy-cm. This CT exam was performed using one or more of the following dose reduction techniques: Automated exposure control, adjustment of the mA and/or kV according to patient size, and/or use of iterative reconstruction technique. FINDINGS: LOWER THORAX: No evidence of infiltrate or consolidation of the lung bases. LIVER: Cardiomegaly is again noted. No evidence of discrete mass. GALLBLADDER AND BILE DUCTS: Prior cholecystectomy changes are again noted. The common bile duct is mildly dilated. PANCREAS: Unremarkable. No gross lesion or ductal dilatation. SPLEEN: The spleen is very small in size. ADRENALS: Unremarkable. No mass. KIDNEYS AND URETERS: Unremarkable. No hydronephrosis. No solid mass. VASCULATURE: Unremarkable. No aortic aneurysm. Mild atherosclerotic calcification noted. BOWEL: Gastric and small bowel wall thickening suspicious for mild gastroenteritis. No evidence of high-grade bowel obstruction. APPENDIX: No evidence of appendicitis PERITONEUM: Unremarkable. No free fluid. No free air. LYMPH NODES: Unremarkable. No enlarged lymph nodes. BLADDER: Mild urinary bladder wall thickening noted. REPRODUCTIVE: The uterus and adnexa are not visualized BONES: No acute fracture. OTHER FINDINGS: Small fat containing umbilical hernia. No evidence of aortic dissection or aneurysm. No evidence of critical stenosis in the abdominal aorta and main branches. Atherosclerotic disease and foci of mural thickening seen in the abdominal aorta and iliac arteries. IMPRESSION: Mild gastric and small bowel wall thickening suspicious for gastritis. Hepatomegaly with possible mild cirrhotic changes of the liver. Small size spleen. No evidence of critical stenosis or aneurysmal changes in the abdominal aorta and iliac arteries. Mild to moderate atherosclerotic disease. Preliminary report contains concordant findings was submitted by [facility].
[2018-11-16] MEDS: Lactated Ringer's 1,000 ML IV SCH ×4 (00:22→21:06)
[2018-11-16] MEDS: metroNIDAZOLE IV 500 mg/100 ml 500 MG/100 ML BAG IVPB SCH ×3 (03:32→19:20)
[2018-11-16] MEDS: (Novolin R) Insulin Human Regular 100 units/ml vial SC SCH ×4 (07:51→21:48)
[2018-11-16 08:01] LABS: BASO # 0.1 K/uL (0.0-0.2); BASO % 0.7 % (0.0-2.0); EOS # 0.3 K/uL (0.0-0.7); EOS % 3.7 % (0.0-4.0); LYMPH # 5.3 K/uL (1.0-4.3); LYMPH % 64.5 % (20.0-40.0); MEAN CELL VOLUME 87.2 fL (81.0-99.0); MEAN CORPUSCULAR HEMOGLOBIN 28.2 pg (27.0-31.0); MEAN CORPUSCULAR HGB CONC 32.3 g/dL (33.0-37.0); MEAN PLATELET VOLUME 10.6 fL (7.2-11.7); MONO # 0.6 K/uL (0.0-0.8); MONO % 7.6 % (0.0-10.0); NEUT # 1.9 K/uL (1.8-7.0); NEUT % 23.5 % (50.0-75.0); NRBC % 0.3 % (0.0-2.0); RBC 4.25 Mil/uL (3.80-5.20); RED CELL DISTRIBUTION WIDTH 17.4 % (11.5-14.5); WHITE BLOOD COUNT 8.2 K/uL (4.8-10.8)
[2018-11-16 08:17] LABS: ALB/GLOB RATIO 1.3 (1.0-2.1); ALBUMIN 3.7 g/dL (3.5-5.0); ALT/SGPT 33 U/L (9-52); AST/SGOT 42 U/L (14-36); BLOOD UREA NITROGEN 8 mg/dL (7-17); CALCIUM 8.9 mg/dl (8.6-10.4); GFR NON-AFRICAN AMERICAN > 60
[2018-11-16] MEDS: Enoxaparin 40 mg Syringe SC SCH (09:09)
[2018-11-16] MEDS: Belladonna-Phenobarbital PO SCH ×2 (09:10→17:34)
--- NOTE | 2018-11-16 09:11 | PN ---
DATE: 11/16/2018 LOCATION: 353, bed A. SUBJECTIVE: This 63-year-old female seen and examined in rounds early in the morning. The entire chart is reviewed including but not limited to the most recent lab and radiology study results, current and the previous medication list. Case discussed with the staff at length. The most recent lab results showed blood glucose level of 106 with elevated amylase, but normal lipase level with normal cancer markers; however, the patient still has intermittent period of abdominal pain and postprandial abdominal distention. Official report of the CAT scan of the abdomen and pelvis is seen, indicative of thickened wall of the gastric cavity. PHYSICAL EXAMINATION: GENERAL: A 63-year-old female. Denied any chills or fever, any actual chest pain or significant shortness of breath, but persistent abdominal pain. VITAL SIGNS: The patient is afebrile with pulse of 70, respiratory rate 20 to 22, blood pressure 132/78. HEENT: Showed pale dry mucous membrane. Nonicteric sclerae. LUNGS: Few scattered crepitation. Decreased air entry at bases. HEART: Positive S1 and S2. ABDOMEN: Soft with mild generalized tenderness but moderate tenderness, mainly in the midepigastric and the midabdominal line. No mass or organomegaly. No rebound tenderness or guarding. NEUROLOGIC: No reported new neurological deficits, sensory or motor. No reported new focal deficits. RECTAL: The patient refused. SUGGESTIONS: 1. Continue current management. 2. Followup in H and H. 3. PT/PTT. 4. Endoscopic evaluation of the upper GI tract when the patient is more stable clinically. Clifford Gandara MD
[2018-11-16] MEDS ORDERED: Pneumococcal 23-Valent Vaccine IM ONE (10:00)
[2018-11-16] MEDS ORDERED: Influenza Vaccine 60 mcg/0.5 mL SYR (4YR UP) IM ONE (10:00)
[2018-11-16] MEDS ORDERED: Potassium Chloride 20 mEq/15 ml LIQ UD PO ONE (11:00)
[2018-11-16 14:21] LABS: INR 1.2; PROTHROMBIN TIME 12.7 SECONDS (9.7-12.2)
--- NOTE | 2018-11-16 18:27 | CP.PCM.PN ---
Subjective - Date & Time of Evaluation Date of Evaluation: 11/15/18 Time of Evaluation: 08:20 - Subjective Subjective: dictated Objective - Vital Signs/Intake and Output Vital Signs (last 24 hours): Temp Pulse Resp BP Pulse Ox 98.5 F 68 20 167/84 H 98 11/16/18 16:00 11/16/18 16:00 11/16/18 16:00 11/16/18 16:00 11/16/18 16:00 Intake and Output: 11/16/18 11/16/18 06:59 18:59 Intake Total Balance - Medications Medications: Current Medications Belladonna/Phenobarbital () 1 tab PO BID [facility] Last Admin: 11/16/18 17:34 Dose: 1 tab Clonazepam (Klonopin) 1 mg PO BID [facility] Last Admin: 11/16/18 17:34 Dose: 1 mg Dicyclomine HCl (Bentyl) 10 mg PO Q8 [facility] Last Admin: 11/16/18 13:15 Dose: 10 mg Enoxaparin Sodium (Lovenox) 40 mg SC DAILY [facility] Last Admin: 11/16/18 09:09 Dose: 40 mg Lactated Ringer's (Lactated Ringer's) 1,000 mls @ 100 mls/hr IV .Q10H [facility] Last Admin: 11/16/18 11:28 Dose: Not Given Metronidazole (Flagyl) 500 mg in 100 mls @ 100 mls/hr IVPB Q8H [facility]; Protocol Last Admin: 11/16/18 11:00 Dose: 100 mls/hr Insulin Human Regular (Novolin R) 0 unit SC ACHS [facility]; Protocol Last Admin: 11/16/18 17:33 Dose: Not Given Losartan Potassium (Cozaar) 100 mg PO DAILY [facility] Last Admin: 11/16/18 09:10 Dose: 100 mg Nicotine (Nicoderm Cq) 1 patch TD DAILY [facility] Last Admin: 11/16/18 09:10 Dose: 1 patch Ondansetron HCl (Zofran Inj) 4 mg IVP Q6 PRN PRN Reason: Nausea/Vomiting Pantoprazole Sodium (Protonix Inj) 40 mg IVP DAILY [facility] Last Admin: 11/16/18 09:10 Dose: 40 mg Rosuvastatin Calcium (Crestor) 10 mg PO HS [facility] Last Admin: 11/15/18 21:04 Dose: 10 mg Zolpidem Tartrate (Ambien) 5 mg PO HS PRN PRN Reason: Insomnia - Labs Labs: 11/16/18 07:11 11/16/18 07:11 PT 12.7 SECONDS (9.7-12.2) H 11/16/18 13:50 INR 1.2 11/16/18 13:50 APTT 39 SECONDS (21-34) H 11/16/18 13:50
--- NOTE | 2018-11-16 18:27 | CP.PCM.PN ---
Subjective - Date & Time of Evaluation Date of Evaluation: 11/16/18 Time of Evaluation: 08:20 - Subjective Subjective: dictated Objective - Vital Signs/Intake and Output Vital Signs (last 24 hours): Temp Pulse Resp BP Pulse Ox 98.5 F 68 20 167/84 H 98 11/16/18 16:00 11/16/18 16:00 11/16/18 16:00 11/16/18 16:00 11/16/18 16:00 Intake and Output: 11/16/18 11/16/18 06:59 18:59 Intake Total Balance - Medications Medications: Current Medications Belladonna/Phenobarbital () 1 tab PO BID [facility] Last Admin: 11/16/18 17:34 Dose: 1 tab Clonazepam (Klonopin) 1 mg PO BID [facility] Last Admin: 11/16/18 17:34 Dose: 1 mg Dicyclomine HCl (Bentyl) 10 mg PO Q8 [facility] Last Admin: 11/16/18 13:15 Dose: 10 mg Enoxaparin Sodium (Lovenox) 40 mg SC DAILY [facility] Last Admin: 11/16/18 09:09 Dose: 40 mg Lactated Ringer's (Lactated Ringer's) 1,000 mls @ 100 mls/hr IV .Q10H [facility] Last Admin: 11/16/18 11:28 Dose: Not Given Metronidazole (Flagyl) 500 mg in 100 mls @ 100 mls/hr IVPB Q8H [facility]; Protocol Last Admin: 11/16/18 11:00 Dose: 100 mls/hr Insulin Human Regular (Novolin R) 0 unit SC ACHS [facility]; Protocol Last Admin: 11/16/18 17:33 Dose: Not Given Losartan Potassium (Cozaar) 100 mg PO DAILY [facility] Last Admin: 11/16/18 09:10 Dose: 100 mg Nicotine (Nicoderm Cq) 1 patch TD DAILY [facility] Last Admin: 11/16/18 09:10 Dose: 1 patch Ondansetron HCl (Zofran Inj) 4 mg IVP Q6 PRN PRN Reason: Nausea/Vomiting Pantoprazole Sodium (Protonix Inj) 40 mg IVP DAILY [facility] Last Admin: 11/16/18 09:10 Dose: 40 mg Rosuvastatin Calcium (Crestor) 10 mg PO HS [facility] Last Admin: 11/15/18 21:04 Dose: 10 mg Zolpidem Tartrate (Ambien) 5 mg PO HS PRN PRN Reason: Insomnia - Labs Labs: 11/16/18 07:11 11/16/18 07:11 PT 12.7 SECONDS (9.7-12.2) H 11/16/18 13:50 INR 1.2 11/16/18 13:50 APTT 39 SECONDS (21-34) H 11/16/18 13:50
--- NOTE | 2018-11-16 23:05 | PN ---
DATE: 11/16/2018 SUBJECTIVE: The patient with persistent abdominal pain, nausea, vomiting. She also has history of opioid dependence and she is withdrawing. She is anxious. She is depressed. She denies any dysuria, hematuria, pyuria. She denies any sneezing, itchy eyes, itchy nose. She denies any cough. PHYSICAL EXAMINATION: VITAL SIGNS: Blood pressure 164/84, pulse 57, respiratory rate 20, temperature 98.3. LUNGS: Clear. No rales. No rhonchi. CARDIOVASCULAR SYSTEM: PMI not localized. S1, S2. Regular. ABDOMEN: Soft. ASSESSMENT: 1. Abdominal pain, rule out ischemic bowel disease versus diverticulosis versus diverticulitis. 2. Hypertension. 3. Coronary artery disease. 4. Hyperlipidemia. PLAN: Continue antibiotics. Add Klonopin, add Ambien. Monitor the patient for signs of withdrawal. Hussein Bah MD
--- NOTE | 2018-11-16 23:11 | PN ---
DATE: 11/16/2018 SUBJECTIVE: The patient is feeling better. Blood work has been benign. She has been admitted and she is for evaluation by GI. PHYSICAL EXAMINATION: VITAL SIGNS: Blood pressure 167/88, pulse 62, respiratory rate 20, temperature 98.7. LUNGS: Clear. No rales. No rhonchi. CARDIOVASCULAR SYSTEM: PMI no localized. S1, S2. Regular. ABDOMEN: Soft, nontender. Bowel sounds positive. ASSESSMENT: 1. Abdominal pain, rule out ischemic bowel, rule out gastroenteritis versus colitis versus diverticulitis. 2. Hypertension. 3. Opioid dependence. 4. Anxiety and depression. PLAN: Colonoscopy. Monitor patient. Hussein Bah MD
[2018-11-17] MEDS: metroNIDAZOLE IV 500 mg/100 ml 500 MG/100 ML BAG IVPB SCH ×3 (03:09→19:00)
[2018-11-17] MEDS: Lactated Ringer's 1,000 ML IV SCH ×2 (06:36→16:30)
--- NOTE | 2018-11-17 07:07 | PN ---
DATE: 11/14/2018 LOCATION: 353, bed A. SUBJECTIVE: This 63-year-old female seen and examined early in rounds without significant clinical changes or reported active bleeding with intermittent period of abdominal pain, severe at times as well as left foot pain, with reported small superficial ulceration. No reported chest pain, palpitation, and no reported significant shortness of breath, but abdominal pain with nausea and intermittent period of dyspepsia. Today's lab results still pending, however, the patient had elevated amylase to 121, normal lipase as well as normal basic cancer markers. The official report of the recently done angiography, CAT scan is still pending. PHYSICAL EXAMINATION: GENERAL: A 63-year-old female, awake, alert, oriented. VITAL SIGNS: Afebrile with pulse of 62, respiratory rate 20-22, blood pressure 160/78. HEENT: Showed pale dry mucous membrane. Nonicteric sclerae. LUNGS: Few scattered crepitation. Decreased air entry at bases. HEART: Positive S1 and S2. ABDOMEN: Soft with mild generalized tenderness. No mass or organomegaly. No rebound tenderness or guarding, but midepigastric and left and right lower quadrant tenderness. RECTAL: The patient refused. EXTREMITIES: Without significant clinical changes. No edema, clubbing or cyanosis. No reported new neurological deficit, sensory or motor. IMPRESSION: 1. Re-exacerbation of peptic ulcer disease. 2. Multiple past medical history including but not limited to hypertension, chronic obstructive pulmonary disease, reported severe anxiety syndrome with hyperlipidemia. 3. Chronic lower back pain syndrome. 4. Osteoarthritis by history. 5. Status post appendectomy, cholecystectomy, and back surgery. SUGGESTIONS: 1. Agree with your plan. 2. Adjust oral intake with only clear liquid diet in the meantime for now. 3. Guaiac all the stools daily. 4. Carafate p.o. 5. tab one twice a day. 6. Further recommendation to follow. Clifford Gandara MD
[2018-11-17 08:01] LABS: ALB/GLOB RATIO 1.3 (1.0-2.1); ALBUMIN 3.6 g/dL (3.5-5.0); ALT/SGPT 34 U/L (9-52); AST/SGOT 40 U/L (14-36); BLOOD UREA NITROGEN 7 mg/dL (7-17); CALCIUM 9.1 mg/dl (8.6-10.4); GFR NON-AFRICAN AMERICAN > 60
[2018-11-17] MEDS ORDERED: Labetalol 25mg/5ml Syringe IVP ONE (08:15)
[2018-11-17] MEDS: (Novolin R) Insulin Human Regular 100 units/ml vial SC SCH ×4 (08:24→21:40)
[2018-11-17 08:59] LABS: BARBITURATES, UR NEGATIVE (NEGATIVE); BENZODIAZEPINES, UR NEGATIVE (NEGATIVE); OPIATES, UR NEGATIVE (NEGATIVE)
[2018-11-17 09:14] LABS: PHENCYCLIDINE, UR NEGATIVE (NEGATIVE)
[2018-11-17] MEDS: Belladonna-Phenobarbital PO SCH ×3 (09:58→18:05)
[2018-11-17] MEDS: Enoxaparin 40 mg Syringe SC SCH (09:59)
[2018-11-17 11:11] LABS: HEMOGLOBIN 13.2 g/dL (11.0-16.0); MEAN CELL VOLUME 86.4 fL (81.0-99.0); MEAN CORPUSCULAR HEMOGLOBIN 27.4 pg (27.0-31.0); MEAN CORPUSCULAR HGB CONC 31.7 g/dL (33.0-37.0); MEAN PLATELET VOLUME 10.6 fL (7.2-11.7); RBC 4.82 Mil/uL (3.80-5.20); RED CELL DISTRIBUTION WIDTH 17.3 % (11.5-14.5); WHITE BLOOD COUNT 6.8 K/uL (4.8-10.8)
[2018-11-17] MEDS ORDERED: Lactated Ringer's 1,000 ML IV ONE (11:40)
[2018-11-17] MEDS ORDERED: Propofol 10 mg/ml Inj (20 ML) ONE (11:45)
[2018-11-17] MEDS ORDERED: Midazolam 2 MG/2 ML VIAL ONE (11:45)
[2018-11-17] MEDS ORDERED: Lidocaine Hydrochloride 5 ML INJ ONE (11:47)
[2018-11-17 12:19] LABS: EOS # 0.4 K/uL (0.0-0.7); LYMPH # 4.1 K/uL (1.0-4.3); MONO # 0.3 K/uL (0.0-0.8)
--- NOTE | 2018-11-17 12:46 | PCM.RRT ---
EDGER MACHINE OPERATOR Nurses Assessment - Situation Date: 11/17/18 Time EDGER MACHINE OPERATOR was called: 08:03 EDGER MACHINE OPERATOR Responder Arrival Time:: 08:05 EDGER MACHINE OPERATOR Location:: Med/Oncology Room Number: 353 EDGER MACHINE OPERATOR Reason for Call: Hypertension EDGER MACHINE OPERATOR Called By: RN - IV IV Inserted during EDGER MACHINE OPERATOR?: No - Respiratory EDGER MACHINE OPERATOR Delivery Method: Room Air Received Nebulizer Treatments: No Was the Patient Ventilated with Bag/Mask 100% O2?: No Secretions Suctioned?: No Was the Patient Intubated?: No Was the Patient Placed on a Ventilator?: No - Ventilator Settings Ventilator Respiratory Rate Settin Ventilator Tidal Volume Settin - Medication Medications Administered During EDGER MACHINE OPERATOR: labetalol 10mg - Diagnostic Test Ordered EKG: No Chest X-Ray: No CT Scan: No CPR started during EDGER MACHINE OPERATOR?: No - Vital Signs Vital Signs: Rapid Response Vital Sign Blood Pressure 201/106 Pulse Rate 92 Respiratory Rate 20 Temperature 98.6 F Oxygen Saturation 99 - Time EDGER MACHINE OPERATOR Ended Time EDGER MACHINE OPERATOR Ended: 08:25 - Vital Signs at end of EDGER MACHINE OPERATOR Vital Signs at end of EDGER MACHINE OPERATOR: Rapid Response End Vital Sign Blood Pressure 179/76 Pulse Rate 78 Respiratory Rate 20 Temperature 98.6 F O2 Sat by Pulse Oximetry 99 I.Reason for EDGER MACHINE OPERATOR - A) Acute Change in Patient: Subjective: uncontrolled hypertension - Neurological Status (Select all that apply): Alert, Oriented - Respiratory Oxygen Delivery Method: Room Air - Constitutional Appears: Non-toxic, No Acute Distress - Head Head Exam: ATRAUMATIC, NORMAL INSPECTION, NORMOCEPHALIC - Eyes Eye Exam: EOMI, Normal appearance - Respiratory Exam Respiratory Exam: Clear to Ausculation Bilateral, NORMAL BREATHING PATTERN - Cardiovascular Exam Cardiovascular Exam: REGULAR RHYTHM, RRR, +S1 - GI/Abdominal Exam GI & Abdominal Exam: Soft, Normal Bowel Sounds - Neurological Exam Neurological Exam: Alert, Awake, Oriented x3 - Extremities Exam Extremities Exam: absent: Pedal Edema, Tenderness Plan - Assessment of Findings&Treatment Plan Nurse called EDGER MACHINE OPERATOR for elevated blood pressure. Upon arrival patient's blood pressure was 201/109, P90, O2 100% on RA. Patient complained of a headache on the top of her head and was feeling anxious. Patient denied any chest pain or shortness of breath. Patient admits to taking Suboxone 8mg daily as well as using 2 bags of Heroin daily. Patient said she last used Heroin about 1 week ago. Patient has also not had her Suboxone since 11/13/18. Patient given Labetalol 10mg ivp. A few minutes after patient's blood pressure decreased to 179/86. Patient was feeling much better.
[2018-11-17] MEDS ORDERED: Peg-Electrolyte Oral Soln 4L (Golytely) PO ONE (13:00)
[2018-11-17] MEDS ORDERED: Potassium Chloride 20 mEq/15 ml LIQ UD PO ONE (14:00)
[2018-11-17] MEDS ORDERED: Aluminum Hydroxide/Magnesium Hydroxide Susp (30 mL) PO PRN (15:27)
[2018-11-17] MEDS ORDERED: Bisacodyl 5mg EC Tab PO ONE (17:00)
--- NOTE | 2018-11-17 23:04 | CP.PCM.PN ---
Subjective - Date & Time of Evaluation Date of Evaluation: 11/17/18 Time of Evaluation: 07:00 - Subjective Subjective: dcitated Objective - Vital Signs/Intake and Output Vital Signs (last 24 hours): Temp Pulse Resp BP Pulse Ox 98.1 F 60 20 156/89 H 98 11/17/18 16:00 11/17/18 16:00 11/17/18 16:00 11/17/18 16:00 11/17/18 16:00 Intake and Output: 11/17/18 11/18/18 18:59 06:59 Intake Total 2800 Balance 2800 - Medications Medications: Current Medications Al Hydrox/Mg Hydrox/Simethicone (Maalox 30 Ml) 30 ml PO Q6H PRN PRN Reason: Indigestion / Heartburn Belladonna/Phenobarbital () 1 tab PO BID [facility] Last Admin: 11/17/18 18:05 Dose: 1 tab Clonazepam (Klonopin) 1 mg PO BID [facility] Last Admin: 11/17/18 18:00 Dose: 1 mg Dicyclomine HCl (Bentyl) 10 mg PO Q8 [facility] Last Admin: 11/17/18 21:41 Dose: 10 mg Enoxaparin Sodium (Lovenox) 40 mg SC DAILY [facility] Last Admin: 11/17/18 09:59 Dose: Not Given Insulin Human Regular (Novolin R) 0 unit SC [facility]; Protocol Last Admin: 11/17/18 21:40 Dose: Not Given Ketorolac Tromethamine (Toradol) 15 mg IVP Q6 PRN PRN Reason: Pain, moderate (4-7) Last Admin: 11/17/18 12:54 Dose: 15 mg Losartan Potassium (Cozaar) 100 mg PO DAILY [facility] Last Admin: 11/17/18 12:54 Dose: 100 mg Metoclopramide HCl (Reglan) 5 mg IVP Q6H [facility] Last Admin: 11/17/18 18:10 Dose: 5 mg Nicotine (Nicoderm Cq) 1 patch TD DAILY [facility] Last Admin: 11/17/18 09:45 Dose: 1 patch Ondansetron HCl (Zofran Inj) 4 mg IVP Q6 PRN PRN Reason: Nausea/Vomiting Pantoprazole Sodium (Protonix Inj) 40 mg IVP DAILY [facility] Last Admin: 11/17/18 09:45 Dose: 40 mg Rosuvastatin Calcium (Crestor) 10 mg PO HS [facility] Last Admin: 11/17/18 21:39 Dose: 10 mg Zolpidem Tartrate (Ambien) 5 mg PO HS PRN PRN Reason: Insomnia Last Admin: 11/17/18 21:39 Dose: 5 mg - Labs Labs: 11/17/18 10:45 11/17/18 07:10 PT 12.7 SECONDS (9.7-12.2) H 11/16/18 13:50 INR 1.2 11/16/18 13:50 APTT 39 SECONDS (21-34) H 11/16/18 13:50
--- NOTE | 2018-11-18 02:07 | PN ---
DATE: 11/17/2018 SUBJECTIVE: The patient's endoscopy showed gastritis. The patient admits using street drugs. She is anxious. She is depressed. She is not responding to Klonopin and Restoril. She denies any joint pain. She still has abdominal pain, which is periumbilical, diffuse. CT angio is negative. PHYSICAL EXAMINATION: VITAL SIGNS: Blood pressure 156/89, pulse 60, respiratory rate 20, temperature 98.1. LUNGS: Clear. CARDIOVASCULAR: S1 and S2, regular. ABDOMEN: Periumbilical tenderness. ASSESSMENT: 1. Abdominal pain, gastritis. 2. Hypertension. 3. Substance abuse. 4. Anxiety and depression. PLAN: Continue Protonix. Gastroenterology evaluation. Pelvic ultrasound. Monitor the patient. Hussein Bah MD
[2018-11-18] MEDS: (Novolin R) Insulin Human Regular 100 units/ml vial SC SCH ×3 (07:39→17:31)
[2018-11-18] MEDS: Belladonna-Phenobarbital PO SCH ×3 (10:24→17:30)
[2018-11-18] MEDS ORDERED: Propofol 10 mg/ml Inj (20 ML) ONE (10:33)
[2018-11-18 11:44] VITALS: TEMP 97.9
[2018-11-18] MEDS ORDERED: Potassium Chloride 20 mEq ER Tab PO ONE (13:00)
--- NOTE | 2018-11-18 16:18 | US ---
Date of service: 11/18/2018 PROCEDURE: HISTORY: pain, pelvic area COMPARISON: CT abdomen and pelvis without contrast 11/09/2018 TECHNIQUE: Transvaginal FINDINGS: Neither uterus or either ovary is identified in this patient apparently with a history of a complete hysterectomy and bilateral oophorectomy. The exam is unremarkable. IMPRESSION: Nonvisualized uterus and ovaries-compatible with the clinical history provided.
[2018-11-18 16:23] VITALS: BP 136/76; PULSE 92; RESP 20; O2SAT 96
--- NOTE | 2018-11-18 18:07 | CP.PCM.PN ---
Subjective - Date & Time of Evaluation Date of Evaluation: 11/18/18 Time of Evaluation: 18:07 - Subjective Subjective: alert, no acute pain or distress. Objective - Vital Signs/Intake and Output Vital Signs (last 24 hours): Temp Pulse Resp BP Pulse Ox 97.9 F 92 H 20 136/76 96 11/18/18 16:00 11/18/18 16:00 11/18/18 16:00 11/18/18 16:00 11/18/18 16:00 Intake and Output: 11/18/18 11/18/18 06:59 18:59 Intake Total 3200 100 Balance 3200 100 - Medications Medications: Current Medications Al Hydrox/Mg Hydrox/Simethicone (Maalox 30 Ml) 30 ml PO Q6H PRN PRN Reason: Indigestion / Heartburn Belladonna/Phenobarbital () 1 tab PO BID [facility] Last Admin: 11/18/18 17:30 Dose: 1 tab Clonazepam (Klonopin) 1 mg PO BID [facility] Last Admin: 11/18/18 17:30 Dose: 1 mg Dicyclomine HCl (Bentyl) 10 mg PO Q8 [facility] Last Admin: 11/18/18 13:10 Dose: 10 mg Enoxaparin Sodium (Lovenox) 40 mg SC DAILY [facility] Last Admin: 11/17/18 09:59 Dose: Not Given Insulin Human Regular (Novolin R) 0 unit SC [facility]; Protocol Last Admin: 11/18/18 17:31 Dose: 1 units Ketorolac Tromethamine (Toradol) 15 mg IVP Q6 PRN PRN Reason: Pain, moderate (4-7) Last Admin: 11/17/18 12:54 Dose: 15 mg Losartan Potassium (Cozaar) 100 mg PO DAILY [facility] Last Admin: 11/18/18 12:24 Dose: 100 mg Metoclopramide HCl (Reglan) 5 mg IVP Q6H [facility] Last Admin: 11/18/18 17:31 Dose: 5 mg Nicotine (Nicoderm Cq) 1 patch TD DAILY [facility] Last Admin: 11/18/18 12:25 Dose: 1 patch Ondansetron HCl (Zofran Inj) 4 mg IVP Q6 PRN PRN Reason: Nausea/Vomiting Pantoprazole Sodium (Protonix Inj) 40 mg IVP DAILY [facility] Last Admin: 11/18/18 12:25 Dose: 40 mg Rosuvastatin Calcium (Crestor) 10 mg PO HS [facility] Last Admin: 11/17/18 21:39 Dose: 10 mg Zolpidem Tartrate (Ambien) 5 mg PO HS PRN PRN Reason: Insomnia Last Admin: 11/17/18 21:39 Dose: 5 mg - Labs Labs: 11/17/18 10:45 11/17/18 07:10 PT 12.7 SECONDS (9.7-12.2) H 11/16/18 13:50 INR 1.2 11/16/18 13:50 APTT 39 SECONDS (21-34) H 11/16/18 13:50 Assessment and Plan - Assessment and Plan (Free Text) Assessment: 63 year old female admitted with abdominal pain, seen and examined. Alert, ambulatory denies pain, tolerating diet. S/P colonoscopy today. Discussed with DR Bah , plan to discharge home and follow up in the office in 1 week.
--- NOTE | 2018-11-18 21:41 | CP.PCM.PN ---
Subjective - Date & Time of Evaluation Date of Evaluation: 11/18/18 Time of Evaluation: 09:00 - Subjective Subjective: dictated Objective - Vital Signs/Intake and Output Vital Signs (last 24 hours): Temp Pulse Resp BP Pulse Ox 97.9 F 92 H 20 136/76 96 11/18/18 16:00 11/18/18 16:00 11/18/18 16:00 11/18/18 16:00 11/18/18 16:00 Intake and Output: 11/18/18 11/19/18 18:59 06:59 Intake Total 100 Balance 100 - Medications Medications: Current Medications Al Hydrox/Mg Hydrox/Simethicone (Maalox 30 Ml) 30 ml PO Q6H PRN PRN Reason: Indigestion / Heartburn Belladonna/Phenobarbital () 1 tab PO BID [facility] Last Admin: 11/18/18 17:30 Dose: 1 tab Clonazepam (Klonopin) 1 mg PO BID [facility] Last Admin: 11/18/18 17:30 Dose: 1 mg Dicyclomine HCl (Bentyl) 10 mg PO Q8 [facility] Last Admin: 11/18/18 13:10 Dose: 10 mg Enoxaparin Sodium (Lovenox) 40 mg SC DAILY [facility] Last Admin: 11/17/18 09:59 Dose: Not Given Insulin Human Regular (Novolin R) 0 unit SC [facility]; Protocol Last Admin: 11/18/18 17:31 Dose: 1 units Ketorolac Tromethamine (Toradol) 15 mg IVP Q6 PRN PRN Reason: Pain, moderate (4-7) Last Admin: 11/17/18 12:54 Dose: 15 mg Losartan Potassium (Cozaar) 100 mg PO DAILY [facility] Last Admin: 11/18/18 12:24 Dose: 100 mg Metoclopramide HCl (Reglan) 5 mg IVP Q6H [facility] Last Admin: 11/18/18 17:31 Dose: 5 mg Nicotine (Nicoderm Cq) 1 patch TD DAILY [facility] Last Admin: 11/18/18 12:25 Dose: 1 patch Ondansetron HCl (Zofran Inj) 4 mg IVP Q6 PRN PRN Reason: Nausea/Vomiting Pantoprazole Sodium (Protonix Inj) 40 mg IVP DAILY [facility] Last Admin: 11/18/18 12:25 Dose: 40 mg Rosuvastatin Calcium (Crestor) 10 mg PO HS [facility] Last Admin: 11/17/18 21:39 Dose: 10 mg Zolpidem Tartrate (Ambien) 5 mg PO HS PRN PRN Reason: Insomnia Last Admin: 11/17/18 21:39 Dose: 5 mg - Labs Labs: 11/17/18 10:45 11/17/18 07:10 PT 12.7 SECONDS (9.7-12.2) H 11/16/18 13:50 INR 1.2 11/16/18 13:50 APTT 39 SECONDS (21-34) H 11/16/18 13:50
--- NOTE | 2018-11-19 07:28 | DS ---
DISCHARGE DIAGNOSES: 1. Abdominal pain. 2. Hypertension. 3. Opiate dependent. 4. Anxiety, depression, and insomnia. HISTORY OF PRESENT ILLNESS AND HOSPITAL COURSE: This is a 63-year-old female with history of hypertension, hyperlipidemia, osteoarthritis. She is active heroin abuser. She smokes. She sniffs. In her usual state of health, she is ambulatory and independent in activities of daily living. She came in because of abdominal pain, nausea, vomiting, and generalized weakness. She denied any dysuria. Urine cultures were negative. Urinalysis was negative. The patient was given IV Protonix, Zofran, endoscopy and colonoscopy. She was found to have gastritis. The patient did well. She is feeling better. The patient has been prescribed Protonix. PHYSICAL EXAMINATION: VITAL SIGNS: She is afebrile. Blood pressure 136/76, pulse 92, respiratory rate 20, temperature 97.9. LUNGS: Clear. CARDIOVASCULAR SYSTEM: S1 and S2, regular. ABDOMEN: Soft. PLAN: Discharge the patient on Protonix. The patient will also go home on Suboxone, and she will be followed up closely. Hussein Bah MD
== END 2018-11-18 21:45 | disposition home or self-care (01) | DRG 392 ==
LOC: C.ER 12:17 → C.9E 17:01 → C.3T 20:41 → OBSVTOIN 11-15 14:02
PROVIDERS: ADMIT Internal Medicine; ATTEND Internal Medicine
PROC: 0DB68ZX Excision of Stomach, Via Natural or Artificial Opening Endoscopic, Diagnostic (ICD-10-PCS; principal; 2018-11-17 11:40)
PROC: 0DBM8ZX Excision of Descending Colon, Via Natural or Artificial Opening Endoscopic, Diagnostic (ICD-10-PCS; 2018-11-18)
PROC: 0DBN8ZZ Excision of Sigmoid Colon, Via Natural or Artificial Opening Endoscopic (ICD-10-PCS; 2018-11-18)
DX: K52.9 Noninfective gastroenteritis and colitis, unspecified (principal); F11.20 Opioid dependence, uncomplicated; E86.0 Dehydration; D12.7 Benign neoplasm of rectosigmoid junction; K29.50 Unspecified chronic gastritis without bleeding; K64.8 Other hemorrhoids; K64.4 Residual hemorrhoidal skin tags; K44.9 Diaphragmatic hernia without obstruction or gangrene; E11.9 Type 2 diabetes mellitus without complications; I10 Essential (primary) hypertension; I25.10 Atherosclerotic heart disease of native coronary artery without angina pectoris; J43.9 Emphysema, unspecified; G89.29 Other chronic pain; E78.5 Hyperlipidemia, unspecified; E78.00 Pure hypercholesterolemia, unspecified; F41.9 Anxiety disorder, unspecified; F17.200 Nicotine dependence, unspecified, uncomplicated; F03.90 Unspecified dementia, unspecified severity, without behavioral disturbance, psychotic disturbance, mood disturbance, and anxiety; F32.9 Major depressive disorder, single episode, unspecified; G47.00 Insomnia, unspecified; Z90.49 Acquired absence of other specified parts of digestive tract; Z90.710 Acquired absence of both cervix and uterus

== ENCOUNTER 2018-12-04 10:22 | Emergency (ER) | payer MEDICARE, OTHER ==
[2018-12-04 10:22] VITALS: BMI 27.4
[2018-12-04 10:49] VITALS: RESP 12; O2SAT 98
[2018-12-04] MEDS ORDERED: Belladonna-Phenobarbital PO STA (11:10)
[2018-12-04] MEDS ORDERED: Aluminum Hydroxide/Magnesium Hydroxide Susp (30 mL) PO STA (11:10)
[2018-12-04] MEDS ORDERED: Belladonna-Phenobarbital ONE (11:46)
[2018-12-04] MEDS ORDERED: Aluminum Hydroxide/Magnesium Hydroxide Susp (30 mL) ONE (11:47)
[2018-12-04 11:58] LABS: BASO # 0.1 K/uL (0.0-0.2); BASO % 0.9 % (0.0-2.0); EOS # 0.1 K/uL (0.0-0.7); EOS % 2.3 % (0.0-4.0); LYMPH # 3.5 K/uL (1.0-4.3); LYMPH % 59.8 % (20.0-40.0); MEAN CELL VOLUME 86.6 fL (81.0-99.0); MEAN CORPUSCULAR HEMOGLOBIN 28.7 pg (27.0-31.0); MEAN CORPUSCULAR HGB CONC 33.1 g/dL (33.0-37.0); MEAN PLATELET VOLUME 10.4 fL (7.2-11.7); MONO # 0.3 K/uL (0.0-0.8); NEUT # 1.9 K/uL (1.8-7.0); NRBC % 0.2 % (0.0-2.0); RBC 4.18 Mil/uL (3.80-5.20); RED CELL DISTRIBUTION WIDTH 17.5 % (11.5-14.5); WHITE BLOOD COUNT 5.8 K/uL (4.8-10.8)
[2018-12-04 12:49] LABS: ALB/GLOB RATIO 1.3 (1.0-2.1); ALBUMIN 3.7 g/dL (3.5-5.0); ALT/SGPT 48 U/L (9-52); AST/SGOT 76 U/L (14-36); BLOOD UREA NITROGEN 10 mg/dL (7-17); GFR NON-AFRICAN AMERICAN > 60; LIPASE 101 U/L (23-300)
[2018-12-04 12:55] LABS: B-TYPE NATRIURETIC PEPTIDE 111 pg/mL (0-900)
--- NOTE | 2018-12-04 14:33 | C.PDOC ---
History Of Present Illness 63 year old female presents to ED with complaint of epigastric pain and burning sensation to the chest that began this morning. Patient states that the pain is worse with lying down. She has a PMHx of hypertension, diabetes, and gastritis. Patient denies SOB, headache, fever, chills, nausea, and vomiting. Time Seen by Provider: 12/04/18 10:43 Chief Complaint (Nursing): Chest Pain History Per: Patient History/Exam Limitations: no limitations Onset/Duration Of Symptoms: Hrs Current Symptoms Are (Timing): Still Present Quality: Burning Associated Symptoms: denies: Nausea, Dyspnea Modifying Factors: None Exacerbating Factors: None Alleviating Factors: None Past Medical History Reviewed: Historical Data, Nursing Documentation, Vital Signs Vital Signs: Last Vital Signs Temp 98.4 F 12/04/18 10:44 Pulse 77 12/04/18 10:44 Resp 12 12/04/18 10:44 BP 122/79 12/04/18 10:44 Pulse Ox 98 12/04/18 10:44 - Medical History PMH: Anxiety, Arthritis, Asthma, Back Problems, COPD, Dementia, Emphysema, Ga stritis, GERD, HTN, Hypercholesterolemia, Seizures, Chronic Pain (neck and back) Denies: Anemia, Depression, HIV, Chronic Kidney Disease, Schizophrenia, Sexually Transmitted Disease Surgical History: Appendectomy, Back Surgery, Cholecystectomy - [facility] Procedures COLONOSCOPY (04/22/12) DETOXIFICATION SERVICES FOR SUBSTANCE ABUSE TREATMENT (08/28/17) ESOPHAGOGASTRODUODENOSCOPY [EGD] W/CLOSED BIOPSY (02/04/15) EXCISION OF DESCENDING COLON, ENDO, DIAGN (11/15/18) EXCISION OF SIGMOID COLON, ENDO (11/15/18) EXCISION OF STOMACH, ENDO, DIAGN (11/15/18) GROUP PSYCHOTHERAPY (11/08/16) INDIVIDUAL PSYCHOTHERAPY, COGNITIVE-BEHAVIORAL (11/08/16) INSERT INFUSION DEV IN R INT JUGULAR VEIN, PERC (11/11/16) INSERTION OF ENDOTRACHEAL AIRWAY INTO TRACHEA, VIA OPENING (11/11/16) RESPIRATORY VENTILATION, 24-96 CONSECUTIVE HOURS (11/11/16) Family History: States: Unknown Family Hx - Social History Hx Tobacco Use: Yes Hx Alcohol Use: No Hx Substance Use: No - Immunization History Hx Tetanus Toxoid Vaccination: No Hx Influenza Vaccination: No Hx Pneumococcal Vaccination: No Review Of Systems Constitutional: Negative for: Fever, Chills, Weakness Cardiovascular: Positive for: Chest Pain Respiratory: Negative for: Shortness of Breath Gastrointestinal: Positive for: Abdominal Pain (epigastric area). Negative for: Nausea, Vomiting Neurological: Negative for: Weakness, Numbness, Headache, Dizziness Physical Exam - Physical Exam Appears: Well, Non-toxic, No Acute Distress, Other (visiting other patients) Skin: Normal Color, Warm, Dry Head: Atraumatic, Normacephalic Neck: Normal ROM, Supple Chest: Symmetrical, No Deformity, No Tenderness Cardiovascular: Rhythm Regular, No Murmur Respiratory: No Accessory Muscle Use, No Rales, No Rhonchi, No Wheezing Gastrointestinal/Abdominal: Soft, No Tenderness, No Distention Extremity: Capillary Refill (<2 seconds), No Swelling Neurological/Psych: Oriented x3, Normal Speech, Normal Cognition ED Course And Treatment - Laboratory Results Result Diagrams: 12/04/18 11:54 12/04/18 12:25 Lab Results: Troponin I 0.0140 ng/mL (0.00-0.120) 12/04/18 12:25 NT-Pro-B Natriuret Pep 111 pg/mL (0-900) 12/04/18 12:25 Total Bilirubin 0.5 mg/dL (0.2-1.3) 12/04/18 12:25 AST 76 U/L (14-36) H D 12/04/18 12:25 ALT 48 U/L (9-52) 12/04/18 12:25 Alkaline Phosphatase 55 U/L (38-126) 12/04/18 12:25 Total Protein 6.7 g/dL (6.3-8.3) 12/04/18 12:25 Albumin 3.7 g/dL (3.5-5.0) 12/04/18 12:25 Globulin 2.9 gm/dL (2.2-3.9) 12/04/18 12:25 Albumin/Globulin Ratio 1.3 (1.0-2.1) 12/04/18 12:25 Lipase 101 U/L (23-300) 12/04/18 12:25 ECG: Interpreted By Me, Viewed By Me ECG Interpretation: Normal O2 Sat by Pulse Oximetry: 98 (in RA) Medical Decision Making Medical Decision Making: Impression: 63 year old female presents to ED with complaint of epigastric pain and burning sensation to the chest that began this morning Plan: EKG ordered for patient Labs ordered with troponin,CBC, and lipase for patient Patient given PO, Pepcid PO, and Maalox PO Troponin unremarkable. BMP unremarkable. Patient feels better with medication. Patient discharged. Patient told to follow up with Dr.Saleem Bah in his office within 1-2 days. Disposition Discussed With Dr.: Hussein Bah Counseled Patient/Family Regarding: Studies Performed, Diagnosis, Need For Followup, Rx Given - Disposition Referrals: Hussein Bah MD [Staff Provider] - Disposition: HOME/ ROUTINE Disposition Time: 14:32 Condition: STABLE Prescriptions: Famotidine [Pepcid AC] 10 mg PO DAILY #20 tablet Instructions: Gastritis (DC) Forms: [facility] ([place]an), General Discharge Instructions - POA Present On Arrival: None - Clinical Impression Clinical Impression: Gastritis - Scribe Statement The provider has reviewed the documentation as recorded by the Scribe (Jody Leyva) All medical record entries made by the Scribe were at my direction and personally dictated by me. I have reviewed the chart and agree that the record accurately reflects my personal performance of the history, physical exam, medical decision making, and the department course for this patient. I have also personally directed, reviewed, and agree with the discharge instructions and disposition.
[2018-12-04 15:41] VITALS: BP 131/75; PULSE 71; TEMP 99
--- NOTE | 2018-12-05 11:10 | CARD ---
APPROVED REPORT Date of service: 12/04/2018 EKG Measurement Heart [id number] NM [id number] <Conclusion> Sinus rhythm with occasional premature ventricular complexes Otherwise normal ECG
--- NOTE | 2018-12-05 11:11 | CARD ---
APPROVED REPORT Date of service: 12/04/2018 EKG Measurement Heart [id number] <Conclusion> Normal sinus rhythm Septal infarct, age undetermined Abnormal ECG
== END 2018-12-04 15:38 | disposition home or self-care (01) ==
LOC: C.ER 10:22
DX: K29.70 Gastritis, unspecified, without bleeding (principal); I10 Essential (primary) hypertension; E11.9 Type 2 diabetes mellitus without complications; E78.00 Pure hypercholesterolemia, unspecified; J44.9 Chronic obstructive pulmonary disease, unspecified; Z72.0 Tobacco use

== ENCOUNTER 2018-12-27 20:13 | Emergency (ER) | payer MEDICARE, OTHER ==
[2018-12-27 20:13] VITALS: BMI 27.4
[2018-12-27 20:31] VITALS: TEMP 98.5
[2018-12-27 21:16] LABS: URINE BILIRUBIN NEGATIVE (NEGATIVE); URINE BLOOD NEGATIVE (NEGATIVE); URINE CLARITY Clear (Clear); URINE COLOR Straw (YELLOW); URINE GLUCOSE (UA) NORMAL (Normal); URINE LEUKOCYTE ESTERASE NEG Leu/uL (Negative); URINE PROTEIN NEGATIVE (NEGATIVE); URINE UROBILINOGEN NORMAL mg/dL (0.2-1.0)
[2018-12-27 21:19] LABS: HCG,QUALITATIVE URINE NEGATIVE (NEGATIVE)
[2018-12-27 21:24] LABS: HEMOGLOBIN 11.2 g/dL (11.0-16.0); MEAN CELL VOLUME 84.3 fL (81.0-99.0); MEAN CORPUSCULAR HEMOGLOBIN 27.6 pg (27.0-31.0); MEAN CORPUSCULAR HGB CONC 32.7 g/dL (33.0-37.0); MEAN PLATELET VOLUME 10.6 fL (7.2-11.7); RBC 4.07 Mil/uL (3.80-5.20); RED CELL DISTRIBUTION WIDTH 17.8 % (11.5-14.5); WHITE BLOOD COUNT 7.4 K/uL (4.8-10.8)
[2018-12-27 21:26] LABS: ALB/GLOB RATIO 1.3 (1.0-2.1); ALBUMIN 4.5 g/dL (3.5-5.0); ALT/SGPT 18 U/L (9-52); AST/SGOT 73 U/L (14-36); BLOOD UREA NITROGEN 8 mg/dL (7-17); CALCIUM 9.3 mg/dl (8.6-10.4); GFR NON-AFRICAN AMERICAN > 60; LIPASE 269 U/L (23-300)
[2018-12-27 21:30] LABS: BARBITURATES, UR NEGATIVE (NEGATIVE); BENZODIAZEPINES, UR NEGATIVE (NEGATIVE); PHENCYCLIDINE, UR NEGATIVE (NEGATIVE)
--- NOTE | 2018-12-27 21:30 | C.PDOC ---
History Of Present Illness 63 y/o female comes in complaining of chronic lower back pain and chronic abdominal pain. Patient was brought in by ambulance and had many prior evaluations both in the ER and inpatient for similar complaints. Denies fever, nausea, or vomiting. Time Seen by Provider: 12/27/18 20:20 Chief Complaint (Nursing): Back Pain History Per: Patient History/Exam Limitations: no limitations Onset/Duration Of Symptoms: Days Current Symptoms Are (Timing): Still Present Past Medical History Reviewed: Historical Data, Nursing Documentation, Vital Signs Vital Signs: Last Vital Signs Temp 98.5 F 12/27/18 20:30 Pulse 78 12/27/18 20:30 Resp 18 12/27/18 20:30 BP 198/102 H 12/27/18 20:30 Pulse Ox 98 12/27/18 20:30 - Medical History PMH: Anxiety, Arthritis, Asthma, Back Problems, COPD, Dementia, Emphysema, Gastritis, GERD, HTN, Hypercholesterolemia, Seizures, Chronic Pain (neck and back) Denies: Anemia, Depression, HIV, Chronic Kidney Disease, Schizophrenia, Sexually Transmitted Disease Surgical History: Appendectomy, Back Surgery, Cholecystectomy - [facility] Procedures COLONOSCOPY (04/22/12) DETOXIFICATION SERVICES FOR SUBSTANCE ABUSE TREATMENT (08/28/17) ESOPHAGOGASTRODUODENOSCOPY [EGD] W/CLOSED BIOPSY (02/04/15) EXCISION OF DESCENDING COLON, ENDO, DIAGN (11/15/18) EXCISION OF SIGMOID COLON, ENDO (11/15/18) EXCISION OF STOMACH, ENDO, DIAGN (11/15/18) GROUP PSYCHOTHERAPY (11/08/16) INDIVIDUAL PSYCHOTHERAPY, COGNITIVE-BEHAVIORAL (11/08/16) INSERT INFUSION DEV IN R INT JUGULAR VEIN, PERC (11/11/16) INSERTION OF ENDOTRACHEAL AIRWAY INTO TRACHEA, VIA OPENING (11/11/16) RESPIRATORY VENTILATION, 24-96 CONSECUTIVE HOURS (11/11/16) Family History: States: No Known Family Hx - Social History Hx Tobacco Use: Yes Hx Alcohol Use: No Hx Substance Use: No - Immunization History Hx Tetanus Toxoid Vaccination: No Hx Influenza Vaccination: No Hx Pneumococcal Vaccination: No Review Of Systems Except As Marked, All Systems Reviewed And Found Negative. Constitutional: Negative for: Fever Gastrointestinal: Positive for: Abdominal Pain. Negative for: Nausea, Vomiting Genitourinary: Negative for: Dysuria, Hematuria Musculoskeletal: Positive for: Back Pain Physical Exam - Physical Exam Appears: Non-toxic, No Acute Distress, Other (Older than stated age, argumentative, bizarre, confrontational) Skin: Warm, Dry Head: Atraumatic Eye(s): bilateral: Other (pinpoint pupils) Oral Mucosa: Moist, Other (No alcohol on breath) Cardiovascular: Rhythm Regular, No Murmur Respiratory: Normal Breath Sounds, No Rales, No Rhonchi, No Wheezing Gastrointestinal/Abdominal: Soft, No Tenderness, Distention, Other (tympanic to percussion) Extremity: Bilateral: Atraumatic, Normal ROM Neurological/Psych: Oriented x3, Normal Speech ED Course And Treatment - Laboratory Results Result Diagrams: 12/27/18 21:09 12/27/18 21:09 Lab Interpretation: Abnormal (tox + narcotics) ECG: Interpreted By Me ECG Rhythm: Sinus Rhythm ECG Interpretation: Normal Rate From EC O2 Sat by Pulse Oximetry: 98 (RA) Pulse Ox Interpretation: Normal - Radiology CXR: Interpreted by Me CXR Interpretation: Yes: No Acute Disease - Other Rad abd x 2 X-Ray: Interpreted by Me (+FOS, no obst/FA) Reevaluation Time: 21:54 Reassessment Condition: Unchanged (remains asymptomatic and apparently pain free) Medical Decision Making Medical Decision Making: Plan: --EKG --Labs --Obstructive XR --UA --Magnesium Citrate PO [facility] reviewed 11 prescribers and 2 pharmacies in past calendar year 12 prescribers and 2 pharmacies in past 2 years [id number]: primarly oxycodone, [id number]: a confused combination of Suboxone, oxycodone, percocet, Xanax, Zolpidem travels from [place] to [facility] pt denies she takes [facility] Radiology reviewed: [address] Abd/Pelvis 6 MRI/MRA brain [address] All without significant findings Most all with significant stool throughout colon, c/w chronic constipation this is in the [facility] records alone- pt travels widely for her care and is assumed to have a similarly impressive radiology portfolio in other hospital/systems Psych: Prior psych dx of Dementia, Anxiety, Schizophrenia but lost to psych f/u. pt claims to have h/o Depression only, and refused referral to outpatient psych argumentative, confrontational, threatening @ d/c poor insight in to psych condition but not a present threat to self or others H/o chronic back pain No radiological documentation beyond LS spine films 05/27 showing minor chronic changes no neurological changes/deficits Pinpoint pupils and bizarre behavior c/w persistent narcotics use/abuse chronic belly discomforts prob related to chronic narcotic induced constipation laxative given and instructed with poor insight Disposition Doctor Will See Patient In The: Office Counseled Patient/Family Regarding: Studies Performed, Diagnosis - Disposition Referrals: Chucky Sims [facility] [Outside] [facility] [Outside] [facility] [Outside] Hussein Bah MD [Staff Provider] - Disposition: HOME/ ROUTINE Disposition Time: 21:54 Condition: GOOD Additional Instructions: Do NOT seek narcotic pain meds refills from different prescribers if you are taking Suboxone daily Chronic Constipation: Probably related to your chronic use of narcotics Take a laxative (bottle of mag Citrate given) now and re-evaluate your belly discomfort after 2-3 bowel movements Occasional laxatives as needed Carry Narcan Nasal Lejunior on your person and advise friends/relatives you have it and to spray up your nose in case of accidental narcotics overdose. Prescriptions: Naloxone HCl [Narcan] 4 mg NS ONCE PRN #1 spray PRN Reason: opiate overdose Instructions: Chronic Pain (DC), Constipation, Adult (DC), Opioid Use Disorder Forms: [email or web address] (Azeri) - Clinical Impression Clinical Impression: Chronic back pain, Chronic abdominal pain - Scribe Statement The provider has reviewed the documentation as recorded by the Alfred Costello Provider Attestation: All medical record entries made by the Gisellibmaria del carmen were at my direction and personally dictated by me. I have reviewed the chart and agree that the record accurately reflects my personal performance of the history, physical exam, medical decision making, and the department course for this patient. I have also personally directed, reviewed, and agree with the discharge instructions and disposition.
[2018-12-27 21:31] LABS: OPIATES, UR POSITIVE (NEGATIVE)
[2018-12-27 21:59] VITALS: BP 164/81; PULSE 66; RESP 14
[2018-12-27] MEDS ORDERED: Magnesium Citrate Oral SOL (300 ml) PO ONE (21:59)
[2018-12-27 22:08] LABS: LYMPH # 4.2 K/uL (1.0-4.3); MONO # 0.2 K/uL (0.0-0.8)
[2018-12-27] MEDS ORDERED: Magnesium Citrate Oral SOL (300 ml) ONE (22:15)
[2018-12-27 23:15] VITALS: O2SAT 98
--- NOTE | 2018-12-28 08:20 | RAD ---
Date of service: 12/27/2018 PROCEDURE: Radiographs of the chest and abdomen (obstructive series) HISTORY: abd pain COMPARISON: No prior. TECHNIQUE: AP radiograph of the chest, with upright and supine radiographs of the abdomen. 3 views obtained. FINDINGS: CHEST: Lungs: The lungs are well inflated and clear. Cardiovascular: Normal size heart. No pulmonary vascular congestion. No aortic atherosclerotic calcification present Pleura: No pleural fluid. No pneumothorax. Other findings: None. ABDOMEN AND PELVIS: Bowel: There is moderate amount of stool in the colon. The bowel gas pattern is nonspecific no evidence of mechanical obstruction. Free air: None. Bones: Unremarkable. Other findings: Surgical clips in the right upper quadrant are related to prior cholecystectomy. . IMPRESSION: Constipation. Nonobstructive bowel gas pattern. Clear lungs.
--- NOTE | 2018-12-29 10:02 | CARD ---
APPROVED REPORT Date of service: 12/27/2018 EKG Measurement Heart [id number] [place] [id number] <Conclusion> Sinus rhythm with frequent premature ventricular complexes Otherwise normal ECG
== END 2018-12-27 22:33 | disposition home or self-care (01) ==
LOC: C.ER 20:13
DX: G89.29 Other chronic pain (principal); M54.5 Low back pain; R10.9 Unspecified abdominal pain
CPT/HCPCS: 74022; 80053; 81001; 83690; 84484; 84703; 85025; 93005; 99284; G0480